=== PATIENT | male | born 1945 | race Caucasian/White ===

== ENCOUNTER 2021-06-11 04:12 | Inpatient (IN) | payer BC, OTHER ==
--- NOTE | 2021-06-11 04:51 | P.HP ---
Certification for Inpatient Patient admitted to: Inpatient With expected LOS: >2 Midnights Patient will require the following post-hospital care: None Practitioner: I am a practitioner with admitting privileges, knowledge of patient current condition, hospital course, and medical plan of care. Services: Services provided to patient in accordance with Admission requirements found in Title 42 Section 412.3 of the Code of Federal Regulations <John Baca - Last Filed: 06/11/21 05:26> Patient History Date of Service: 06/11/21 Primary Care Provider: Dr. Saldaña Reason for admission: COVID-19 pneumonia History of Present Illness: 75-year-old male with history of "prediabetes", hypertension, hypothyroidism presents the emergency department for syncope and dyspnea. Patient reports that he tested positive for Covid on 05/30/2021 and has been feeling short of breath since then, patient has a pulse oximeter at home and reports for the last 24 hours has been running around 88 to 89%. Patient reports that he got up to go to the bathroom this evening and had a syncopal episode, denies any focal injury currently alert and oriented x4. Room air saturations around 87% although satting around 9495% on 4 L per nasal cannula at this time. Patient was evaluated in the emergency department and recommendation from ED provider was for admission for COVID-19 pneumonia. - Past Medical/Surgical History -: Prediabetes -: Hypertension -: Hypothyroidism -: Back surgery Psychosocial/ Personal History: Patient is retired and lives at home with his [facility] - Family History Family History: Reviewed- Non-Contributory - Social History Smoking Status: Never smoker Alcohol use: No CD- Drugs: No Caffeine use: Yes Place of Residence: Home <John Baca - Last Filed: 06/11/21 05:26> Date of Service: 06/11/21 <Mitch Montana - Last Filed: 06/11/21 16:10> Review of Systems 10-point ROS is otherwise unremarkable General: Chills, Weakness, Malaise Respiratory: Cough, Dry, Shortness of Breath, SOB with Excertion <John Baca - Last Filed: 06/11/21 05:26> Physical Examination - Physical Exam General: Alert, In no apparent distress, Oriented x3 HEENT: Atraumatic, PERRLA, Mucous membr. moist/pink, EOMI, Sclerae nonicteric Neck: Supple, 2+ carotid pulse no bruit, No LAD, Without JVD or thyroid abnormality Respiratory: Normal air movement, Diminished, Other (Mild tachypnea) Cardiovascular: Regular rate/rhythm, Normal S1 S2 Gastrointestinal: Normal bowel sounds, No tenderness Musculoskeletal: No tenderness Integumentary: No rashes Neurological: Normal gait, Normal speech, Normal strength at 5/5 x4 extr, Normal tone, Normal affect Lymphatics: No axilla or inguinal lymphadenopathy <John Baca - Last Filed: 06/11/21 05:26> - Studies Laboratory Data (last 24 hrs) 06/11/21 04:31: PT 12.5, INR 1.09, APTT 33.1 06/11/21 04:31: WBC 4.30, Hgb 14.0, Hct 41.7, Plt Count 130 L 06/11/21 04:31: Sodium 130 L, Potassium 3.8, BUN 31 H, Creatinine 1.90 H, Glucose 143 H, Magnesium 1.6 L, Total Bilirubin 0.7, AST 33, ALT 25, Alkaline Phosphatase 40 L <Mitch Montana - Last Filed: 06/11/21 16:10> Assessment and Plan - Plan Assessment: Acute hypoxic respiratory failure secondary to COVID-19 pneumoniaunvaccinated enal insufficiency Hypomagnesemia Prediabetes Hypertension Hypothyroidism Plan: Acute hypoxic respiratory failure secondary to COVID-19 pneumoniaunvaccinated: Supplemental oxygen as needed, IV steroids. Pulmonology consulted Daily room air saturations, room air saturations for home oxygen, if patient continues to have low oxygen requirements baby possibly discharge as early as tomorrow on home oxygen. Trend CRP/ferritin/D-dimer levels. Appreciate further input from pulmonology. Renal insufficiency: Patient appears dry, decreased appetite will bolus 1 L now and continue gentle hydration throughout the day. Repeat labs tomorrow. Consult nephrology for worsening. Renal ultrasound. Hypomagnesemia: Protocol in place. Prediabetes: Patient takes Metformin at home for diabetes was told he is prediabetic, A1c ordered continue with AC just Accu-Cheks and mild sliding scale insulin as patient will be on IV steroids, possible increase in blood sugars. Hypertension: Obtain and continue medications as appropriate adjust as necessary Hypothyroidism: Obtain and continue medication, thyroid panel with morning labs tomorrow. DVT PPX: Lovenox Code status: Full Discharge Plan: Home Plan to discharge in: 48 Hours - Advance Directives Does patient have a Living Will: No Does patient have a Durable POA for Healthcare: No - Code Status/Comfort Care Code Status Assessed: Yes (Full code) Critical Care: No Time Spent Managing Pts Care (In Minutes): 55 <John Baca - Last Filed: 06/11/21 05:26> - Plan Patient seen and examined on rounds this morning Reports minimal improvement since recent admission Continues to require oxygen supplementation Denies nausea/vomiting/diarrhea, no chest pain Continue medications as appropriate Anticipate DC home once oxygen requirement less than 4 L showing improvement. Possibly in the next 1-2 days <Mitch Montana - Last Filed: 06/11/21 16:10>
[2021-06-11 04:55] LABS: Absolute Lymphocytes (CBC) 0.7 K/uL (0.7-4.9); Basophils % 0.3 % (0-1.3); Hematocrit 41.7 % (39.6-49.0); Lymphocytes % 16.9 % (15.3-44.8); MPV 9.3 fL (7.6-11.3); RBC Red Blood Cell Count 4.33 M/uL (4.33-5.43)
[2021-06-11 05:01] LABS: Protime INR 1.09
[2021-06-11 05:13] LABS: ALT/SGPT 25 U/L (12-78); AST/SGOT 33 U/L (15-37); Albumin 3.6 g/dL (3.4-5.0); Alkaline Phosphatase 40 U/L (45-117); BUN Blood Urea Nitrogen 31 mg/dL (7-18); Bicarbonate 25 mmol/L (21-32); Bilirubin Direct 0.2 mg/dL (0-0.2); Bilirubin Total 0.7 mg/dL (0.2-1.0); Ferritin 1072.3 ng/mL (26-388); Glucose Level 143 mg/dL (74-106); Magnesium 1.6 mg/dL (1.8-2.4); NT PRO-BNP 68 pg/mL (<450); Potassium 3.8 mmol/L (3.5-5.1); Protein, Total 8.7 g/dL (6.4-8.2); Sodium Level 130 mmol/L (136-145); Troponin (Emerg Dept Use Only) < 0.02 ng/mL (0.0-0.045)
--- NOTE | 2021-06-11 05:25 | ER ---
Nurse's Notes [facility] Name: Italo Oliver Age: 75 yrs Sex: Male : 1945 Arrival Date: 06/11/2021 Time: 04:14 Bed 16 Private MD: Diagnosis: Pneumonia due to SARS-associated coronavirus;Hypoxemia;Dehydration;Syncope Presentation: 06/11 04:17 Chief complaint: Chief complaint: Patient states: Syncope around 0300 this AM. Pt has mk had covid 13 days, pt states his SpO2 has been around 88-89 the past few days, EMS found at scene with SpO2 of 87% increased to 95% on 4L NC. 04:24 Coronavirus screen: Vaccine status: Patient reports receiving the 2nd dose of the covid mk vaccine. Ebola Screen: Patient negative for fever greater than or equal to 101.5 degrees Fahrenheit, and additional compatible Ebola Virus Disease symptoms. Initial Sepsis Screen: Does the patient meet any 2 criteria? RR > 20 per min. Mean Arterial Pressure (MAP) < 65. Does the patient have a suspected source of infection? Yes: Productive cough/pneumonia. Risk Assessment: Do you want to hurt yourself or someone else? Patient reports no desire to harm self or others. Onset of symptoms was June 11, 2021. 04:24 Method Of Arrival: EMS 04:24 Acuity: BEAU 2 mk Historical: - Allergies: 08:14 Sulfa (Sulfonamide Antibiotics); tw2 - Home Meds: 08:14 losartan-hydrochlorothiazide 100-25 mg oral tab 1 tab once daily [Active]; metformin tw2 500 mg Oral tr24 1 tab once daily [Active]; levothyroxine 88 mcg cap 1 cap once daily [Active]; - PMHx: 08:14 Diabetes mellitus; Hypertensive disorder; Hypothyroidism; tw2 - Family history:: not pertinent. - Hospitalizations: : No recent hospitalization is reported. Assessment: 04:50 General: Appears distressed. General: Behavior is calm, cooperative. Pain: Denies pain. mk Neuro: Level of Consciousness is awake, alert, obeys commands, Oriented to person, place, time, situation, [employer] Inspector are equal bilaterally Moves all extremities. Gait is steady, Speech is normal, Facial symmetry appears normal, Pupils are PERRLA. Cardiovascular: Heart tones S1 S2 present Capillary refill < 3 seconds Patient's skin is warm and dry. Pulses are 2+ in right radial artery, right dorsalis pedis artery, left radial artery and left dorsalis pedis artery. Respiratory: Airway is patent Trachea midline Respiratory effort is even, unlabored, Respiratory pattern is symmetrical, tachypnea Breath sounds are diminished. GI: Abdomen is flat. : No signs and/or symptoms were reported regarding the genitourinary system. Derm: No signs and/or symptoms reported regarding the dermatologic system. Derm: Skin is intact, is healthy with good turgor. Musculoskeletal: Capillary refill < 3 seconds, fingers. toes. Range of motion: intact in all extremities. 05:50 Reassessment: Patient appears in no apparent distress at this time. Patient and/or family updated on plan of care and expected duration. Pain level reassessed. Patient is alert, oriented x 3, equal unlabored respirations, skin warm/dry/pink. 08:39 Reassessment: Patient appears in no apparent distress at this time. Patient and/or tw2 family updated on plan of care and expected duration. Pain level reassessed. Patient is alert, oriented x 3, equal unlabored respirations, skin warm/dry/pink. Vital Signs: 04:24 BP 106 / 46; Pulse 74; Resp 24; Temp 98.1; Pulse Ox 95% on 4 lpm NC; mk 05:15 BP 109 / 64; Pulse 77; Resp 16; Pulse Ox 99% on 4 lpm NC; mk 07:23 BP 124 / 58; Pulse 77; Resp 23; Pulse Ox 98% on 4 lpm NC; mk 08:26 BP 111 / 61; Pulse 79; Resp 22; Temp 98.9(O); Pulse Ox 95% on 4 lpm NC; tw2 Vitals: 07:16 Cardiac Rhythm Assessment. Nini Coma Score: 05:15 Eye Response: spontaneous(4). Verbal Response: oriented(5). Motor Response: obeys commands(6). Total: 15. 07:23 Eye Response: spontaneous(4). Verbal Response: oriented(5). Motor Response: obeys commands(6). Total: 15. ED Course: 04:14 Patient arrived in ED. lp1 04:16 Janine Mckeon RN is Primary Nurse. 04:21 Viraj Montana MD is Attending Physician. rn 04:27 Triage completed. mk 04:30 XRAY CXR (1 view) In Process Unspecified. EDMS 04:32 Inserted saline lock: 20 gauge in right forearm, using aseptic technique. mk 04:32 Inserted saline lock: 20 gauge in left antecubital area, using aseptic technique. mk 04:53 BMP Sent. mk 04:53 Blood Culture Adult (2) Sent. mk 04:53 CBC with Diff Sent. mk 04:53 D-Dimer Sent. mk 04:53 Hepatic Function Sent. mk 04:53 Magnesium Sent. mk 04:53 NT PRO-BNP Sent. mk 04:53 PT-INR Sent. mk 04:53 Ptt, Activated Sent. mk 04:53 Troponin (emerg Dept Use Only) Sent. mk 04:53 CRP Sent. mk 04:53 Ferritin Sent. mk 05:04 Notified ED physician of a critical lab result(s). D-Dimer 723. lp1 05:23 Mitch Montana MD is Hospitalizing Provider. rn 07:20 Report received from MELYSSA Mehta. tw2 07:41 Primary Nurse role handed off by Janine Mckeon RN tw2 07:41 Renee Burgos RN is Primary Nurse. tw2 Administered Medications: 05:53 Drug: SOLU-Medrol (methylPrednisoLONE) 125 mg Route: IVP; Site: left antecubital; mk 05:53 Drug: NS 0.9% 1000 ml Route: IV; Rate: 1000 ml; Site: right forearm; mk 05:53 Drug: Magnesium Sulfate 1 grams Route: IVPB; Infused Over: 1 hrs; Site: right forearm; mk Outcome: 05:24 Decision to Hospitalize by Provider. rn 08:38 Admitted to Med/surg via wheelchair, room 414, with oxygen, Report called to tw2 MELYSSA Mehta 08:38 Condition: stable 08:38 Instructed on the need for admit. 08:47 Patient left the ED. tw2 Signatures: Dispatcher [employer] EDMS Viraj Montana MD MD rn Pena, Laura RN RN lp1 Renee Burgos RN RN tw2 Janine Mckeon RN RN mk Corrections: (The following items were deleted from the chart) 04:27 04:17 Chief complaint: mk mk 07:24 04:32 Inserted saline lock: 20 gauge in right antecubital area, using aseptic mk technique. mk 07:25 04:50 Respiratory: Airway is patent Trachea midline Respiratory effort is even, mk unlabored, Respiratory pattern is regular, symmetrical, mk 08:27 08:26 BP 111 / 61; Pulse 79bpm; Resp 22bpm; Pulse Ox 95% 4 lpm Nasal Cannula; tw2 tw2
--- NOTE | 2021-06-11 05:25 | EDPHYS ---
Physician Documentation [facility] Name: Italo Oliver Age: 75 yrs Sex: Male : 1945 Arrival Date: 06/11/2021 Time: 04:14 Bed 16 Private MD: ED Physician Viraj Montana HPI: 06/11 04:35 This 75 yrs old Male presents to ER via EMS with complaints of Syncope. rn 04:35 The patient has experienced near-syncope. Onset: The symptoms/episode began/occurred rn just prior to arrival. Duration: This was a single episode. Associated injury: The patient did not suffer any apparent associated injury. Current symptoms: Currently, the patient is not experiencing any symptoms. The patient has not experienced similar symptoms in the past. The patient has not recently seen a physician. Patient reports had syncopal episode as was trying to go to the bathroom today. Denies any focal injury or pain from fall. Reports tested positive for Covid this last Monday with symptoms for about a week. Denies hemoptysis. Denies vomiting or diarrhea. Reports generalized weakness and decreased appetite as well as cough.. Historical: - Allergies: 08:14 Sulfa (Sulfonamide Antibiotics); tw2 - Home Meds: 08:14 losartan-hydrochlorothiazide 100-25 mg oral tab 1 tab once daily [Active]; metformin tw2 500 mg Oral tr24 1 tab once daily [Active]; levothyroxine 88 mcg cap 1 cap once daily [Active]; - PMHx: 08:14 Diabetes mellitus; Hypertensive disorder; Hypothyroidism; tw2 - Family history:: not pertinent. - Hospitalizations: : No recent hospitalization is reported. ROS: 04:35 Constitutional: Negative for fever, chills, and weight loss, Eyes: Negative for injury, rn pain, redness, and discharge, ENT: Negative for injury, pain, and discharge, Neck: Negative for injury, pain, and swelling, Cardiovascular: Negative for chest pain, palpitations, and edema, Respiratory: Positive for cough Abdomen/GI: Negative for abdominal pain, nausea, vomiting, diarrhea, and constipation, Back: Negative for injury and pain, : Negative for injury, bleeding, discharge, and swelling, MS/Extremity: Negative for injury and deformity, Skin: Negative for injury, rash, and discoloration, Neuro: Positive for generalized weakness Exam: 04:35 Constitutional: This is a well developed, well nourished patient who is awake, alert, rn and in no acute distress. Head/Face: Normocephalic, atraumatic. Eyes: Periorbital areas with no swelling, redness, or edema. ENT: Dry MM Neck: Trachea midline Cardiovascular: Regular rate and rhythm. No pulse deficits. Respiratory: Mild tachypnea, no retractions Abdomen/GI: Soft, non-tender Skin: Warm, dry MS/ Extremity: Pulses equal, no cyanosis. Neurovascular intact. Full, normal range of motion. Equal circumference. Neuro: Awake and alert, GCS 15 Vital Signs: 04:24 BP 106 / 46; Pulse 74; Resp 24; Temp 98.1; Pulse Ox 95% on 4 lpm NC; mk 05:15 BP 109 / 64; Pulse 77; Resp 16; Pulse Ox 99% on 4 lpm NC; mk 07:23 BP 124 / 58; Pulse 77; Resp 23; Pulse Ox 98% on 4 lpm NC; mk 08:26 BP 111 / 61; Pulse 79; Resp 22; Temp 98.9(O); Pulse Ox 95% on 4 lpm NC; tw2 Singer Coma Score: 05:15 Eye Response: spontaneous(4). Verbal Response: oriented(5). Motor Response: obeys mk commands(6). Total: 15. 07:23 Eye Response: spontaneous(4). Verbal Response: oriented(5). Motor Response: obeys mk commands(6). Total: 15. MDM: 04:21 Patient medically screened. rn 05:22 Differential Diagnosis: syncope, dehydration, COVID. Data reviewed: vital signs, nurses rn notes, lab test result(s), EKG, radiologic studies, plain films, and as a result, I will admit patient. Data interpreted: Pulse oximetry: on 4L(s) per nasal canula, is 95 %. Interpretation: hypoxia. Plan: O2 by NC applied. Counseling: I had a detailed discussion with the patient and/or guardian regarding: the historical points, exam findings, and any diagnostic results supporting the discharge/admit diagnosis, lab results, radiology results, the need for further work-up and treatment in the hospital. Response to treatment: There is no appreciated change of the patient's symptoms at this time. Admission orders: after a detailed discussion of the patient's condition and case, the admit orders are written by me. Special discussion:. 06/11 04:15 Order name: BMP; Complete Time: 05:22 06/11 04:15 Order name: Blood Culture Adult (2) 06/11 04:15 Order name: CBC with Diff; Complete Time: 04:59 06/11 04:15 Order name: D-Dimer; Complete Time: 05:12 06/11 04:15 Order name: Hepatic Function; Complete Time: 05:22 06/11 04:15 Order name: Magnesium; Complete Time: 05:22 06/11 04:15 Order name: NT PRO-BNP; Complete Time: 05:22 06/11 04:15 Order name: PT-INR; Complete Time: 05:12 06/11 04:15 Order name: Ptt, Activated; Complete Time: 05:12 06/11 04:15 Order name: Troponin (emerg Dept Use Only); Complete Time: 05:22 06/11 04:15 Order name: XRAY CXR (1 view) 06/11 04:15 Order name: CRP; Complete Time: 05:22 06/11 04:15 Order name: Ferritin; Complete Time: 05:22 06/11 04:15 Order name: COVID-19/FLU A+B (Document "Date of Onset" if Symptomatic) 06/11 04:15 Order name: EKG; Complete Time: 04:16 06/11 04:15 Order name: Cardiac monitoring; Complete Time: 04:53 06/11 04:15 Order name: EKG - Nurse/Tech; Complete Time: 04:53 06/11 04:15 Order name: IV Saline Lock; Complete Time: 04:53 06/11 04:15 Order name: Labs collected and sent; Complete Time: 04:53 06/11 04:15 Order name: O2 Per Protocol; Complete Time: 04:53 06/11 04:15 Order name: O2 Sat Monitoring; Complete Time: 04:53 Administered Medications: 05:53 Drug: SOLU-Medrol (methylPrednisoLONE) 125 mg Route: IVP; Site: left antecubital; 05:53 Drug: NS 0.9% 1000 ml Route: IV; Rate: 1000 ml; Site: right forearm; 05:53 Drug: Magnesium Sulfate 1 grams Route: IVPB; Infused Over: 1 hrs; Site: right forearm; Disposition Summary: 06/11/21 05:24 Hospitalization Ordered Hospitalization Status: Inpatient Admission rn Provider: Mitch Montana rn Location: Telemetry/MedSurg (Inpatient) rn Condition: Stable rn Problem: new rn Symptoms: have improved rn Bed/Room Type: Standard rn Room Assignment: 415(06/11/21 07:47) eb Diagnosis - Pneumonia due to SARS-associated coronavirus rn - Hypoxemia rn - Dehydration rn - Syncope rn Forms: - Medication Reconciliation Form rn - SBAR form rn Signatures: Dispatcher [employer] EDMS Viraj Montana MD MD rn Attema, Lee, CHEESE WRAPPER-C CHEESE WRAPPER-Cla1 Renee Burgos RN RN 2 Jennifer Cueto Madeline RN RN bessy Corrections: (The following items were deleted from the chart) 07:47 05:24 rn eb
--- NOTE | 2021-06-11 05:26 | P.HP ---
Patient History Date of Service: 06/11/21 Primary Care Provider: Dr. Saldaña Reason for admission: COVID-19 pneumonia History of Present Illness: 75-year-old male with history of "prediabetes", hypertension, hypothyroidism presents the emergency department for syncope and dyspnea. Patient reports that he tested positive for Covid on 05/30/2021 and has been feeling short of breath since then, patient has a pulse oximeter at home and reports for the last 24 hours has been running around 88 to 89%. Patient reports that he got up to go to the bathroom this evening and had a syncopal episode, denies any focal injury currently alert and oriented x4. Room air saturations around 87% although satting around 9495% on 4 L per nasal cannula at this time. Patient was evaluated in the emergency department and recommendation from ED provider was for admission for COVID-19 pneumonia. - Past Medical/Surgical History -: Prediabetes -: Hypertension -: Hypothyroidism -: Back surgery Psychosocial/ Personal History: Patient is retired and lives at home with his family - Family History Family History: Reviewed- Non-Contributory - Social History Smoking Status: Never smoker Alcohol use: No CD- Drugs: No Caffeine use: Yes Place of Residence: Home Physical Examination - Studies Laboratory Data (last 24 hrs) 06/11/21 04:31: PT 12.5, INR 1.09, APTT 33.1 06/11/21 04:31: WBC 4.30, Hgb 14.0, Hct 41.7, Plt Count 130 L 06/11/21 04:31: Sodium 130 L, Potassium 3.8, BUN 31 H, Creatinine 1.90 H, Glucose 143 H, Magnesium 1.6 L, Total Bilirubin 0.7, AST 33, ALT 25, Alkaline Phosphatase 40 L Assessment and Plan - Plan Assessment: Acute hypoxic respiratory failure secondary to COVID-19 pneumoniaunvaccinated enal insufficiency Hypomagnesemia Prediabetes Hypertension Hypothyroidism Plan: Acute hypoxic respiratory failure secondary to COVID-19 pneumoniaunvaccinated: Supplemental oxygen as needed, IV steroids. Pulmonology consulted Daily room air saturations, room air saturations for home oxygen, if patient continues to have low oxygen requirements baby possibly discharge as early as tomorrow on home oxygen. Trend CRP/ferritin/D-dimer levels. Appreciate further input from pulmonology. Renal insufficiency: Patient appears dry, decreased appetite will bolus 1 L now and continue gentle hydration throughout the day. Repeat labs tomorrow. Consult nephrology for worsening. Renal ultrasound. Hypomagnesemia: Protocol in place. Prediabetes: Patient takes Metformin at home for diabetes was told he is prediabetic, A1c ordered continue with AC just Accu-Cheks and mild sliding scale insulin as patient will be on IV steroids, possible increase in blood sugars. Hypertension: Obtain and continue medications as appropriate adjust as necessary Hypothyroidism: Obtain and continue medication, thyroid panel with morning labs tomorrow. DVT PPX: Lovenox Code status: Full - Advance Directives Does patient have a Living Will: No Does patient have a Durable POA for Healthcare: No Time Spent Managing Pts Care (In Minutes): 55
[2021-06-11] MEDS ORDERED: Magnesium Sulfate 2gm IVPB 2 G/50 ML BAG IV ONE (05:32)
[2021-06-11] MEDS ORDERED: METHYLPREDNISOLONE 125 MG INJ ONE (05:32)
[2021-06-11] MEDS ORDERED: NA CHLORIDE 0.9% 1,000 ML ONE (05:33)
--- NOTE | 2021-06-11 07:11 | RAD REPORT ---
EXAM DESCRIPTION: RAD - Chest Single View - 06/11/2021 4:30 am CLINICAL HISTORY: COUGH COMPARISON: Chest Pa And Lat (2 Views) dated 10/17/2017 FINDINGS: Lines: None. Lungs: Ill-defined bilateral airspace opacities. Pleural: No significant pleural effusions or pneumothorax. Cardiac: The heart size is within normal limits. Bones: No acute fractures. Other: IMPRESSION: Ill-defined bilateral airspace disease could reflect multifocal pneumonia, including Cov id-19.
[2021-06-11 07:51] LABS: SARS-COV-2 RT PCR POSITIVE (NEGATIVE)
[2021-06-11 09:11] VITALS: BMI 27.1
[2021-06-11] MEDS ORDERED: ACETAMINOPHEN 500 MG TAB PO PRN (09:12)
[2021-06-11] MEDS ORDERED: ONDANSETRON 4 MG/2 ML VIAL IV PRN (09:12)
[2021-06-11] MEDS ORDERED: MELATONIN 5 MG TABLET PO PRN (09:12)
[2021-06-11] MEDS: INSULIN -REGULAR HUMAN 50 UNIT/0.5 ML ML SQ SCH ×5 (09:12→19:14)
[2021-06-11] MEDS ORDERED: BENZONATATE 100 MG CAP PO PRN (09:12)
[2021-06-11] MEDS: ENOXAPARIN 40 MG/0.4 ML SQ SCH (09:46)
[2021-06-11] MEDS: NA CHLORIDE 0.9% 1,000 ML IV SCH ×2 (09:46→20:48)
[2021-06-11 10:36] LABS: Urine Appearance CLEAR (Clear); Urine Bilirubin NEGATIVE (Negative); Urine Blood NEGATIVE (Negative); Urine Color YELLOW (Yellow); Urine Glucose NEGATIVE (Negative); Urine Protein NEGATIVE (Negative); Urine Urobilinogen 0.2 mg/dL (0.2-1.0); Urine pH 5.5 (5.0-7.0)
[2021-06-11 10:43] LABS: Urine Microscopic Reflex NO UMIC
--- NOTE | 2021-06-11 14:23 | RAD REPORT ---
EXAM DESCRIPTION: US - Renal Ultrasound-Complete - 06/11/2021 1:44 pm CLINICAL HISTORY: elev. creat. Flank pain COMPARISON: Renal Ultrasound-Complete dated 12/11/2017 FINDINGS: Both kidneys are normal in size, shape and echotexture. The right kidney measures 10.4 x 5.4 x 4.2 cm. No hydronephrosis, focal mass or perinephric fluid. The left kidney measures 10.5 x 5.1 x 3.6 cm. Benign left renal cyst measuring 2.5 cm. No hydronephro sis, focal mass or perinephric fluid. The urinary bladder is incompletely distended without gross abnormality seen. IMPRESSION: Benign left renal cyst, otherwise normal study.
[2021-06-11] MEDS ORDERED: NA CHLORIDE 0.9% 0 ML ONE (17:46)
[2021-06-11] MEDS: METHYLPREDNISOLONE 125 MG INJ IV SCH (19:36)
[2021-06-12 03:25] LABS: Absolute Lymphocytes (CBC) 0.8 K/uL (0.7-4.9); Basophils % 0.1 % (0-1.3); Hematocrit 37.8 % (39.6-49.0); Lymphocytes % 12.4 % (15.3-44.8); RBC Red Blood Cell Count 3.95 M/uL (4.33-5.43)
[2021-06-12 03:48] LABS: Albumin 2.8 g/dL (3.4-5.0); Bilirubin Total 0.4 mg/dL (0.2-1.0); C-Reactive Protein 35.7 mg/L (<3.00); Ferritin 940.9 ng/mL (26-388); Magnesium 1.9 mg/dL (1.8-2.4); Protein, Total 7.2 g/dL (6.4-8.2); Thyroid Stimulating Hormone 0.177 uIU/mL (0.360-3.740)
[2021-06-12] MEDS: INSULIN -REGULAR HUMAN 50 UNIT/0.5 ML ML SQ SCH (07:30)
[2021-06-12] MEDS: ENOXAPARIN 40 MG/0.4 ML SQ SCH (08:04)
[2021-06-12] MEDS: METHYLPREDNISOLONE 125 MG INJ IV SCH (08:09)
[2021-06-12 08:48] VITALS: BP 110/59; TEMP 97.6
--- NOTE | 2021-06-12 09:01 | P.DS ---
Admission Date: 06/11/21 Discharge Date: 06/12/21 Primary Care Provider: Dr. Saldaña Discharge Condition: FAIR Reason for Admission: COVID-19 pneumonia Brief History of Present Illness: Patient admitted with respiratory failure from Covid pneumonia Hospital Course: Patient's clinical course was unremarkable he was admitted treated with steroids and multivitamin supplement at time of discharge patient alert oriented responsive cooperative off oxygen room air sat 94% no new complaints denies any shortness of breath his vital signs are all stable chest clear cardiovascular system heart sounds normal and he is alert oriented responsive cooperative no obvious weakness of his extremities he agreed that he was ready to be discharged I faxed some dexamethasone to his pharmacy chest x-ray shows minimal changes Vital Signs/Physical Exam: Temp Pulse Resp BP Pulse Ox 97.6 F 60 19 110/59 L 94 06/12/21 08:00 06/12/21 08:00 06/12/21 08:00 06/12/21 08:00 06/12/21 08:00 Laboratory Data at Discharge: WBC 6.40 K/uL (4.3-10.9) D 06/12/21 03:11 Hgb 12.7 g/dL (13.6-17.9) L 06/12/21 03:11 Hct 37.8 % (39.6-49.0) L 06/12/21 03:11 Plt Count 121 K/uL (152-406) L 06/12/21 03:11 PT 12.5 SECONDS (9.5-12.5) 06/11/21 04:31 INR 1.09 06/11/21 04:31 APTT 33.1 SECONDS (24.3-36.9) 06/11/21 04:31 Sodium 135 mmol/L (136-145) L 06/12/21 03:11 Potassium 4.0 mmol/L (3.5-5.1) 06/12/21 03:11 BUN 30 mg/dL (7-18) H 06/12/21 03:11 Creatinine 1.33 mg/dL (0.55-1.3) H 06/12/21 03:11 Glucose 196 mg/dL (74-106) H 06/12/21 03:11 Magnesium 1.9 mg/dL (1.8-2.4) 06/12/21 03:11 Total Bilirubin 0.4 mg/dL (0.2-1.0) 06/12/21 03:11 AST 27 U/L (15-37) 06/12/21 03:11 ALT 23 U/L (12-78) 06/12/21 03:11 Alkaline Phosphatase 31 U/L (45-117) L 06/12/21 03:11 Triglycerides 141 mg/dL (<150) 06/12/21 03:11 Cholesterol 156 mg/dL (<200) 06/12/21 03:11 HDL Cholesterol 25 mg/dL (40-60) L 06/12/21 03:11 Cholesterol/HDL Ratio 6.24 06/12/21 03:11 Home Medications: Ascorbic Acid [Vitamin C*] 500 mg PO DAILY 06/11/21 Aspirin 81 mg PO DAILY 06/11/21 Cholecalciferol (Vitamin D3) [Vitamin D3] 1,000 unit PO DAILY 06/11/21 Levothyroxine [Synthroid*] 0.1 mg PO DAILY 06/11/21 Metformin HCl [Glucophage*] 500 mg PO DAILY 06/11/21 Multivitamin 1 tab PO DAILY 06/11/21 Pantoprazole Sodium [Protonix] 40 mg PO DAILY 06/11/21 Pioglitazone [Actos*] 30 mg PO DAILY 06/11/21 Valsartan/Hydrochlorothiazide [Valsartan-Hctz 160-25 mg Tab] 1 tab PO DAILY 06/11/21 Zinc 1 tab PO DAILY 06/11/21 dexAMETHasone [Dexamethasone] 2 mg PO BID #20 tablet 06/12/21 New Medications: dexAMETHasone [Dexamethasone] 2 mg PO BID #20 tablet Followup: NONE,NONE [Primary Care Provider] -
[2021-06-12 09:10] VITALS: O2SAT 93
== END 2021-06-12 11:00 | disposition home or self-care (01) | DRG 177 ==
LOC: ER 04:12 → ERHOLD 05:02 → 4TH 08:27
PROVIDERS: ADMIT Hospitalist; ATTEND Internal Medicine Sleep Medicine
DX: U07.1 COVID-19 (principal); J12.82 Pneumonia due to coronavirus disease 2019; J96.01 Acute respiratory failure with hypoxia; I10 Essential (primary) hypertension; N28.9 Disorder of kidney and ureter, unspecified; E83.42 Hypomagnesemia; E03.9 Hypothyroidism, unspecified; E86.0 Dehydration; R73.03 Prediabetes; Z88.1 Allergy status to other antibiotic agents; Z79.84 Long term (current) use of oral hypoglycemic drugs; Z79.890 Hormone replacement therapy; Z79.899 Other long term (current) drug therapy
CPT/HCPCS: 0240U; 36415; 71045; 76770; 80048; 80053; 80061; 80076; 81003; 82728; 82947; 83036; 83735; 83880; 84439; 84443; 84484; 85025; 85379; 85610; 85730; 86140; 87040; 93005; 99285; J1650; J2930; J3475; J7030

== ENCOUNTER 2021-06-15 09:36 | Inpatient (IN) | payer OTHER ==
[2021-06-15] MEDS ORDERED: NA CHLORIDE 0.9% 500 ML ONE (09:55)
[2021-06-15] MEDS ORDERED: LEVALBUTEROL 1.25 MG/3 ML NEB ONE (09:55)
--- NOTE | 2021-06-15 10:04 | RAD REPORT ---
EXAM DESCRIPTION: RAD - Chest Single View - 06/15/2021 9:58 am CLINICAL HISTORY: Shortness of breath Chest pain. COMPARISON: Chest Single View dated 06/11/2021; Chest Pa And Lat (2 Views) dated 10/17/2017 FINDINGS: Portable technique limits examination quality. Bilateral interstitial lung opacities are again seen, appearing slightly progressive on the left sinc e 06/11/2021. The heart is normal in size. No displaced fractures. IMPRESSION: Mild worsening lung aeration, particularly on the left, since comparative study.
[2021-06-15 10:08] LABS: Absolute Lymphocytes (CBC) 0.8 K/uL (0.7-4.9); Hematocrit 39.6 % (39.6-49.0); Lymphocytes % 7.5 % (15.3-44.8); MPV 8.2 fL (7.6-11.3); RBC Red Blood Cell Count 4.18 M/uL (4.33-5.43)
[2021-06-15 10:09] LABS: Protime INR 1.09
[2021-06-15 10:21] LABS: ALT/SGPT 57 U/L (12-78); AST/SGOT 44 U/L (15-37); Albumin 2.9 g/dL (3.4-5.0); Alkaline Phosphatase 37 U/L (45-117); BUN Blood Urea Nitrogen 28 mg/dL (7-18); Bicarbonate 24 mmol/L (21-32); Bilirubin Direct 0.3 mg/dL (0-0.2); Bilirubin Total 0.9 mg/dL (0.2-1.0); Glucose Level 134 mg/dL (74-106); Magnesium 1.8 mg/dL (1.8-2.4); NT PRO-BNP 579 pg/mL (<450); Potassium 3.6 mmol/L (3.5-5.1); Protein, Total 7.8 g/dL (6.4-8.2); Sodium Level 135 mmol/L (136-145); Troponin (Emerg Dept Use Only) < 0.02 ng/mL (0.0-0.045)
--- NOTE | 2021-06-15 10:58 | ER ---
Nurse's Notes [facility] Name: Italo Oliver Age: 75 yrs Sex: Male : 1945 Arrival Date: 06/15/2021 Time: 09:37 Bed 5 Private MD: Diagnosis: Shortness of breath;SARS-associated coronavirus as the cause of diseases classified elsewhere;Acute and chronic respiratory failure with hypoxia-73% on room air at home prior to arrival Presentation: 06/15 09:37 Chief complaint: EMS states: INCREASED SOB AND GENERAL WEAKNESS SINCE LAST NIGHT. DX bp COVID + ON 06/07. Coronavirus screen: Client reports previous positive COVID test result. Date of collection: June 07, 2021. Ebola Screen: No symptoms or risks identified at this time. Initial Sepsis Screen: Does the patient meet any 2 criteria? RR > 20 per min. HR > 90 bpm. Yes Does the patient have a suspected source of infection? Yes: Productive cough/pneumonia. Risk Assessment: Do you want to hurt yourself or someone else? Patient reports no desire to harm self or others. Onset of symptoms was June 14, 2021. Care prior to arrival: Medication(s) given: Albuterol Neb x 1, Atrovent Neb D50, IV initiated. 20 GA, in the left antecubital area. 09:37 Method Of Arrival: EMS: [facility] bp 09:37 Acuity: BEAU 2 bp Triage Assessment: 10:00 General: Appears distressed, uncomfortable, ill, Behavior is calm, cooperative, bp appropriate for age. Pain: Denies pain. EENT: No deficits noted. Neuro: Reports weakness GENERAL. Cardiovascular: Rhythm is sinus tachycardia. Respiratory: Reports shortness of breath at rest Onset: The symptoms/episode began/occurred yesterday, the patient has moderate shortness of breath. GI: No signs and/or symptoms were reported involving the gastrointestinal system. : No signs and/or symptoms were reported regarding the genitourinary system. Derm: No deficits noted. Musculoskeletal: No deficits noted. Historical: - Allergies: 09:40 Sulfa (Sulfonamide Antibiotics); ll1 - PMHx: 09:40 diabetes mellitus; Hypertensive disorder; Hypothyroidism; ll1 - Immunization history:: Client reports having NOT received the Covid vaccine. - Social history:: Smoking status: Patient denies any tobacco usage or history of. Patient uses. Screenin:00 Abuse screen: Denies threats or abuse. Denies injuries from another. Nutritional bp screening: No deficits noted. Tuberculosis screening: No symptoms or risk factors identified. 22:05 Fall Risk None identified. as6 Assessment: 10:00 General: SEE TRIAGE NOTE. bp 12:00 Reassessment: No changes from previously documented assessment. Patient and/or family bp updated on plan of care and expected duration. Pain level reassessed. Patient is alert, oriented x 3, equal unlabored respirations, skin warm/dry/pink. 14:00 Reassessment: No changes from previously documented assessment. Patient and/or family bp updated on plan of care and expected duration. Pain level reassessed. 16:00 Reassessment: No changes from previously documented assessment. Patient and/or family bp updated on plan of care and expected duration. Pain level reassessed. PT SWITCHED FROM NRB15 TO 10L NC. 18:00 Reassessment: No changes from previously documented assessment. Cardiovascular: Rhythm bp is sinus rhythm. Respiratory: Airway is patent Respiratory effort is even, unlabored, Breath sounds are coarse bilaterally. 20:52 Respiratory: Reports shortness of breath. as6 Vital Signs: 09:37 BP 93 / 57; Pulse 110; Resp 28; Temp 98.2; Pulse Ox 91% on 15% Non-rebreather mask; bp 11:00 BP 117 / 54; Pulse 104; Resp 19; Pulse Ox 92% ; bp 12:00 BP 112 / 60; Pulse 94; Resp 29; Pulse Ox 92% ; bp 13:00 BP 122 / 61; Pulse 91; Resp 20; Pulse Ox 87% ; bp 14:00 BP 129 / 61; Pulse 83; Resp 20; Pulse Ox 93% ; bp 15:00 BP 110 / 66; Pulse 87; Resp 23; Pulse Ox 92% ; bp 16:00 BP 126 / 72; Pulse 85; Resp 18; Pulse Ox 82% ; bp 17:00 BP 122 / 79; Pulse 92; Resp 28; Pulse Ox 92% ; bp 18:00 BP 122 / 71; Pulse 79; Resp 19; Pulse Ox 86% ; bp 20:51 BP 117 / 66; Pulse 73; Resp 29 S; Pulse Ox 90% on 10 lpm NC; as6 ED Course: 09:37 Patient arrived in ED. bp 09:38 Rittger, Neville, MD is Attending Physician. kdr 09:40 Arm band placed on Patient placed in an exam room, on a stretcher. ll1 09:40 Patient has correct armband on for positive identification. Bed in low position. Call [facility] light in reach. Side rails up X2. Warm blanket given. video engineer on. Pulse ox on. NIBP on. 09:40 Inserted saline lock: 20 gauge in left antecubital area, using aseptic technique. 5 09:42 Triage completed. bp 09:50 Cody Damon, RN is Primary Nurse. bp 09:52 Troponin (emerg Dept Use Only) Sent. 5 09:52 PT-INR Sent. 5 09:52 NT PRO-BNP Sent. 5 09:52 Magnesium Sent. 5 09:52 LFT's Sent. 5 09:52 CBC with Diff Sent. 5 09:52 Basic Metabolic Panel Sent. 5 09:53 Maintain EMS IV. Dressing intact. Good blood return noted. Site clean \T\ dry. 5 09:54 Initial lab(s) drawn, by nm, sent to lab. EKG done, by ED staff, reviewed by Neville Valera MD. 09:58 XRAY Chest (1 view) In Process Unspecified. EDMS 10:56 Garrett Morales is Hospitalizing Provider. kdr 22:05 No provider procedures requiring assistance completed. Patient admitted, IV remains in as6 place. Administered Medications: 10:00 Drug: Xopenex (levalbuterol) (3) 1.25 mg Route: Inhalation; bp 10:00 Drug: NS 0.9% 500 ml Route: IV; Rate: bolus; Site: left antecubital; bp 10:01 Not Given (Duplicate Order): SOLU-Medrol (methylPrednisoLONE) 125 mg IVP once bp Outcome: 10:57 Decision to Hospitalize by Provider. kdr 22:05 Admitted to Tele accompanied by tech, via stretcher, room 405, with oxygen, with chart, as6 Report called to Mayela RAGSDALE 22:05 Condition: stable 22:05 Patient left the ED. as6 Signatures: Dispatcher [employer] EDPA Neville Valera MD MD kdr Martinez, Maria Cody Lawrence, RN RN bp Alexi Ojeda RN RN ll1 Angel Morales, RN RN as6
--- NOTE | 2021-06-15 10:58 | EDPHYS ---
Physician Documentation [facility] Name: Italo Oliver Age: 75 yrs Sex: Male : 1945 Arrival Date: 06/15/2021 Time: 09:37 Bed 5 Private MD: ED Physician Neville Valera HPI: 06/15 12:45 This 75 yrs old Male presents to ER via EMS with complaints of Shortness Of Breath. kdr 12:45 The patient has shortness of breath at rest, with light activity. Onset: The kdr symptoms/episode began/occurred last night. Duration: The symptoms are continuous, and are steadily getting worse. The patient's shortness of breath is aggravated by exertion, light activity, is alleviated by nothing. Associated signs and symptoms: Pertinent positives: fever, Pertinent negatives: non-productive cough, productive cough. Severity of symptoms: At their worst the symptoms were mild moderate just prior to arrival, in the emergency department the symptoms have improved. The patient has experienced similar episodes in the past, several times. The patient has been recently seen by a physician: the patient's primary care provider. Patient was diagnosed with Covid on the of this month. Since then he has been slowly but steadily getting worse. Last night he had difficulty sleeping and was generally weak. This morning, he called EMS and when they arrived his oxygen saturation was noted to be about 73% on room air. On nonrebreather he came to the mid 90s percentile range with his saturation. Patient otherwise denies any specific circumstances or issues. Historical: - Allergies: 09:40 Sulfa (Sulfonamide Antibiotics); ll1 - PMHx: 09:40 diabetes mellitus; Hypertensive disorder; Hypothyroidism; ll1 - Immunization history:: Client reports having NOT received the Covid vaccine. - Social history:: Smoking status: Patient denies any tobacco usage or history of. Patient uses. ROS: 12:45 Constitutional: Negative for fever, chills, and weight loss, Eyes: Negative for injury, kdr pain, redness, and discharge, ENT: Negative for injury, pain, and discharge, Neck: Negative for injury, pain, and swelling, Abdomen/GI: Negative for abdominal pain, nausea, vomiting, diarrhea, and constipation, Back: Negative for injury and pain, : Negative for injury, bleeding, discharge, and swelling, MS/Extremity: Negative for injury and deformity, Skin: Negative for injury, rash, and discoloration, Neuro: Negative for headache, weakness, numbness, tingling, and seizure activity. 12:45 Cardiovascular: Positive for paroxysmal nocturnal dyspnea, Negative for chest pain, edema, orthopnea, palpitations, paroxysmal nocturnal dyspnea. 12:45 Respiratory: Positive for cough, dyspnea on exertion, shortness of breath, wheezing. Exam: 10:20 ECG was reviewed by the Attending Physician. kdr 12:45 Constitutional: This is a well developed, well nourished patient who is awake, alert, kdr and in no acute distress. Head/Face: Normocephalic, atraumatic. Eyes: Pupils equal round and reactive to light, extra-ocular motions intact. Lids and lashes normal. Conjunctiva and sclera are non-icteric and not injected. Cornea within normal limits. Periorbital areas with no swelling, redness, or edema. Neck: Trachea midline, no thyromegaly or masses palpated, and no cervical lymphadenopathy. Supple, full range of motion without nuchal rigidity, or vertebral point tenderness. No Meningismus. Chest/axilla: Normal chest wall appearance and motion. Nontender with no deformity. No lesions are appreciated. Abdomen/GI: Soft, non-tender, with normal bowel sounds. No distension or tympany. No guarding or rebound. No evidence of tenderness throughout. Back: No spinal tenderness. No costovertebral tenderness. Full range of motion. Skin: Warm, dry with normal turgor. Normal color with no rashes, no lesions, and no evidence of cellulitis. MS/ Extremity: Pulses equal, no cyanosis. Neurovascular intact. Full, normal range of motion. Neuro: Awake and alert, GCS 15, oriented to person, place, time, and situation. Cranial nerves II-XII grossly intact. Motor strength 5/5 in all extremities. Sensory grossly intact. Cerebellar exam normal. Normal gait. Psych: Awake, alert, with orientation to person, place and time. Behavior, mood, and affect are within normal limits. 12:45 Cardiovascular: Rate: tachycardic, Rhythm: regular. 12:45 Respiratory: mild respiratory distress is noted, Respirations: normal, Breath sounds: rales, that are moderate, are scattered, are located in both bases, are heard diffusely. Vital Signs: 09:37 BP 93 / 57; Pulse 110; Resp 28; Temp 98.2; Pulse Ox 91% on 15% Non-rebreather mask; bp 11:00 BP 117 / 54; Pulse 104; Resp 19; Pulse Ox 92% ; bp 12:00 BP 112 / 60; Pulse 94; Resp 29; Pulse Ox 92% ; bp 13:00 BP 122 / 61; Pulse 91; Resp 20; Pulse Ox 87% ; bp 14:00 BP 129 / 61; Pulse 83; Resp 20; Pulse Ox 93% ; bp 15:00 BP 110 / 66; Pulse 87; Resp 23; Pulse Ox 92% ; bp 16:00 BP 126 / 72; Pulse 85; Resp 18; Pulse Ox 82% ; bp 17:00 BP 122 / 79; Pulse 92; Resp 28; Pulse Ox 92% ; bp 18:00 BP 122 / 71; Pulse 79; Resp 19; Pulse Ox 86% ; bp 20:51 BP 117 / 66; Pulse 73; Resp 29 S; Pulse Ox 90% on 10 lpm NC; as6 MDM: 10:57 Patient medically screened. kdr 12:45 Data reviewed: vital signs, nurses notes, lab test result(s), EKG, radiologic studies. kdr Counseling: I had a detailed discussion with the patient and/or guardian regarding: the historical points, exam findings, and any diagnostic results supporting the discharge/admit diagnosis, lab results, radiology results, the need for further work-up and treatment in the hospital. 06/15 09:38 Order name: Basic Metabolic Panel kdr 06/15 09:38 Order name: CBC with Diff kdr 06/15 09:38 Order name: LFT's kdr 06/15 09:38 Order name: Magnesium kdr 06/15 09:38 Order name: NT PRO-BNP kdr 06/15 09:38 Order name: PT-INR kdr 06/15 09:38 Order name: Troponin (emerg Dept Use Only) kdr 06/15 09:38 Order name: XRAY Chest (1 view) kdr 06/15 09:38 Order name: EKG; Complete Time: 09:39 kdr 06/15 09:38 Order name: Cardiac monitoring; Complete Time: 09:42 kdr 06/15 09:38 Order name: EKG - Nurse/Tech; Complete Time: 09:52 kdr 06/15 09:38 Order name: IV Saline Lock; Complete Time: 09:42 kdr 06/15 09:38 Order name: Labs collected and sent; Complete Time: 09:52 kdr 06/15 09:38 Order name: O2 Per Protocol; Complete Time: kdr 06/15 09:38 Order name: O2 Sat Monitoring; Complete Time: : kdr EC:20 Rate is 105 beats/min. Rhythm is regular, Sinus tachycardia with No ectopy. QRS Jackson is kdr Normal. AL interval is normal. QRS interval is normal. Clinical impression: NSR w/ Non-specific ST/T Changes and Sinus tachycardia. Administered Medications: 10:00 Drug: Xopenex (levalbuterol) (3) 1.25 mg Route: Inhalation; bp 10:00 Drug: NS 0.9% 500 ml Route: IV; Rate: bolus; Site: left antecubital; bp 10:01 Not Given (Duplicate Order): SOLU-Medrol (methylPrednisoLONE) 125 mg IVP once bp Disposition Summary: 06/15/21 10:57 Hospitalization Ordered Hospitalization Status: Inpatient Admission kdr Provider: Garrett Morales kdr Location: Telemetry/MedSurg (Inpatient) kdr Condition: Fair kdr Problem: an acute exacerbation kdr Symptoms: have improved kdr Bed/Room Type: Standard kdr Room Assignment: 405(06/15/21 19:45) cs9 Diagnosis - Shortness of breath kdr - SARS-associated coronavirus as the cause of diseases classified elsewhere kdr - Acute and chronic respiratory failure with hypoxia - 73% on room air at home prior kdr to arrival Forms: - Medication Reconciliation Form kdr - SBAR form kdr Signatures: Dispatcher [employer] EDNeville Culver MD MD kdr Cody Damon RN RN bp Alexi Ojeda RN RN 1 Ese Flores cs9 Corrections: (The following items were deleted from the chart) 19:45 10:57 kdr cs9
--- NOTE | 2021-06-15 12:09 | P.HP ---
Certification for Inpatient Patient admitted to: Inpatient With expected LOS: >2 Midnights Practitioner: I am a practitioner with admitting privileges, knowledge of patient current condition, hospital course, and medical plan of care. Services: Services provided to patient in accordance with Admission requirements found in Title 42 Section 412.3 of the Code of Federal Regulations Patient History Date of Service: 06/15/21 Reason for admission: Shortness of breath History of Present Illness: 75-year-old gentleman with a history of diabetes and hypertension recently hospitalized 4 days ago for pneumonia due to Covid and discharged the following day return to the ED with progressive worsening of shortness of breath and cough. Patient noted to be hypoxic on room air and was requiring 100% nonrebreather to maintain oxygen saturation above 90%. He denies any chest pain. He has a nonproductive cough. Patient admitted for further management of Covid pneumonia with hypoxia. Allergies Sulfa (Sulfonamide Antibiotics) Allergy (Verified 06/11/21 09:12) Hives/Rash Home Medications: Ascorbic Acid [Vitamin C*] 500 mg PO DAILY 06/11/21 Aspirin 81 mg PO DAILY 06/11/21 Cholecalciferol (Vitamin D3) [Vitamin D3] 1,000 unit PO DAILY 06/11/21 Levothyroxine [Synthroid*] 0.1 mg PO DAILY 06/11/21 Metformin HCl [Glucophage*] 500 mg PO DAILY 06/11/21 Multivitamin 1 tab PO DAILY 06/11/21 Pantoprazole Sodium [Protonix] 40 mg PO DAILY 06/11/21 Pioglitazone [Actos*] 30 mg PO DAILY 06/11/21 Valsartan/Hydrochlorothiazide [Valsartan-Hctz 160-25 mg Tab] 1 tab PO DAILY 06/11/21 Zinc 1 tab PO DAILY 06/11/21 dexAMETHasone [Dexamethasone] 2 mg PO BID #20 tablet 06/13/21 - Past Medical/Surgical History Diabetic: No -: Prediabetes -: Hypertension -: Hypothyroidism -: Cespedes's Esophagus -: Back surgery Psychosocial/ Personal History: Patient is retired and lives at home with his family - Family History Family History: Reviewed- Non-Contributory - Social History Alcohol use: No CD- Drugs: No Caffeine use: Yes Review of Systems Other: Patient denies any abdominal pain, no nausea or vomiting, no diarrhea. Except as documented, all other systems reviewed and negative. Physical Examination - Physical Exam General: Alert, In no apparent distress, Oriented x3 HEENT: Normocephalic, PERRLA, Mucous membr. moist/pink, Sclerae nonicteric Neck: Supple, JVD not distended Respiratory: Normal air movement, Crackles/rales (Bilateral) Cardiovascular: No edema, Regular rate/rhythm, No murmurs Gastrointestinal: Normal bowel sounds, Soft and benign, Non-distended, No tenderness Musculoskeletal: No swelling, No tenderness Integumentary: No rashes, No erythema, No cyanosis Neurological: Normal speech, Normal strength at 5/5 x4 extr Lymphatics: No axilla or inguinal lymphadenopathy - Studies Laboratory Data (last 24 hrs) 06/15/21 09:50: PT 12.6 H, INR 1.09 06/15/21 09:50: WBC 11.10 H D, Hgb 13.6, Hct 39.6, Plt Count 259 D 06/15/21 09:50: Sodium 135 L, Potassium 3.6, BUN 28 H, Creatinine 1.60 H, Glucose 134 H, Magnesium 1.8, Total Bilirubin 0.9, AST 44 H, ALT 57, Alkaline Phosphatase 37 L Assessment and Plan - Problems (Diagnosis) (1) Pneumonia due to COVID-19 virus Current Visit: Yes Status: Acute (2) Acute respiratory failure with hypoxia Current Visit: Yes Status: Acute (3) Chronic kidney disease, stage 3 Current Visit: Yes Status: Acute - Plan Admit to the medical floor. Covid protocol initiated with IV steroid, vitamin and zinc supplementation. Consult to pulmonary Monitor inflammatory markers. Patient is a candidate for Baricitinib therapy pending CRP result. Titrate oxygen. HFNC and BiPAP as needed. Consult to respiratory. Insulin sliding scale for glucose management. Watch for steroid-induced hyperglycemia. Monitor renal function. - Advance Directives Does patient have a Living Will: No Does patient have a Durable POA for Healthcare: No
[2021-06-15] MEDS ORDERED: ONDANSETRON 4 MG/2 ML VIAL IV PRN (20:51)
[2021-06-15] MEDS: INSULIN -REGULAR HUMAN 50 UNIT/0.5 ML ML SQ SCH ×2 (21:00→22:41)
[2021-06-15] MEDS: ASCORBIC ACID 500 MG TABLET PO SCH (22:40)
[2021-06-15 23:56] LABS: Urine Appearance CLEAR (Clear); Urine Bilirubin NEGATIVE (Negative); Urine Blood TRACE (Negative); Urine Color YELLOW (Yellow); Urine Glucose 3+ (Negative); Urine Protein 1+ (Negative); Urine Specific Gravity 1.025 (1.005-1.030)
[2021-06-16 00:03] LABS: Urine Microscopic Reflex ORDER UMIC
[2021-06-16 00:15] LABS: Urine Bacteria <20 /HPF (NONE SEEN); Urine RBC <5 /HPF (NONE SEEN)
[2021-06-16 03:38] LABS: Hematocrit 36.8 % (39.6-49.0); RBC Red Blood Cell Count 3.84 M/uL (4.33-5.43)
[2021-06-16 03:39] LABS: Absolute Lymphocytes (CBC) 0.7 K/uL (0.7-4.9); Lymphocytes % 5.9 % (15.3-44.8); MPV 8.2 fL (7.6-11.3)
[2021-06-16 03:48] LABS: Protime INR 1.06
[2021-06-16 04:01] LABS: Albumin 2.4 g/dL (3.4-5.0); Bilirubin Total 0.6 mg/dL (0.2-1.0); Ferritin 1481.7 ng/mL (26-388); Magnesium 2.1 mg/dL (1.8-2.4); Phosphorus 2.2 mg/dL (2.5-4.9); Protein, Total 7.2 g/dL (6.4-8.2); Thyroid Stimulating Hormone 0.659 uIU/mL (0.360-3.740)
[2021-06-16 04:20] LABS: Blood Morphology Comment NOT SEEN (NOT SEEN); Platelet Estimate ADEQ; White Blood Cell Scan OK (OK)
[2021-06-16] MEDS: POTASS/SODIUM PHOSPHATE 1 PKT POWD.PACK PO SCH ×3 (06:41→11:26)
[2021-06-16] MEDS ORDERED: PNEUMOCOCCAL VACCINE 0.5 ML IMVAC ONE (08:00)
[2021-06-16] MEDS ORDERED: INFLUENZA VACCINE (for 6+ mo) 0.5 ML DOSE IMVAC ONE (08:00)
[2021-06-16] MEDS ORDERED: dexAMETHasone 10 MG/ML VIAL IV SCH (09:00)
[2021-06-16] MEDS ORDERED: ENOXAPARIN 40 MG/0.4 ML SQ SCH (09:00)
--- NOTE | 2021-06-16 09:15 | RAD REPORT ---
EXAM DESCRIPTION: CT - Chest For Pe Angio - 06/16/2021 8:42 am CLINICAL HISTORY: covid positive, shortness of breath COMPARISON: Chest Single View dated 06/15/2021 TECHNIQUE: Dynamically enhanced 3 mm thick images of the chest were obtained during administration o f approximately 150mL Isovue 370 IV contrast. Coronal and oblique MIP reconstruction images were gene rated and reviewed. Exam utilizes a protocol to evaluate the pulmonary arterial tree. All CT scans are performed using dose optimization technique as appropriate and may include automated exposure control or mA/KV adjustment according to patient size. FINDINGS: No pulmonary emboli are identified. The aorta as imaged shows no acute or suspicious finding. No pericardial thickening or effusion. Diffuse ground-glass opacities are present throughout the mid and lower lung aviles generally sparing each apex. This alveolar opacification pattern is well described in COVID-19 pneumonia. No suspiciou s lung parenchymal mass lesion. No pleural effusion or pleural thickening. No mediastinal or hilar suspicious masses. No chest wall masses or abnormal axillary lymphadenopathy. IMPRESSION: No pulmonary emboli identified. Moderate severity COVID-19 pneumonia pattern throughout the mid and lower lung aviles.
[2021-06-16] MEDS: INSULIN -REGULAR HUMAN 50 UNIT/0.5 ML ML SQ SCH ×4 (09:49→21:09)
[2021-06-16] MEDS: ASCORBIC ACID 500 MG TABLET PO SCH ×2 (11:26→21:08)
[2021-06-16] MEDS: ZINC SULFATE 220 MG CAP PO SCH (11:26)
[2021-06-16] MEDS: VITAMIN D 5,000 UNIT CAP PO SCH (11:27)
[2021-06-16] MEDS: APIXABAN 5 MG TABLET PO SCH ×2 (11:27→21:09)
[2021-06-16] MEDS: METHYLPREDNISOLONE 125 MG INJ IV SCH ×2 (11:28→17:08)
[2021-06-16] MEDS: BARICITINIB 2 MG TABLET PO SCH (11:28)
--- NOTE | 2021-06-16 12:39 | P.CNS ---
Date of Consult: 06/16/21 Reason for Consult: Respiratory failure from coronavirus Chief Complaint: Respiratory failure History of Present Illness: Patient is 75 years of age was recently discharged was admitted with coronavirus became worse and it appeared with worsening x-ray and hypoxemia he is currently on high flow feeling well otherwise patient has not been vaccinated alert responsive cooperative Allergies Sulfa (Sulfonamide Antibiotics) Allergy (Verified 06/11/21 09:12) Hives/Rash Home Medications: Ascorbic Acid [Vitamin C*] 500 mg PO DAILY 06/11/21 Aspirin 81 mg PO DAILY 06/11/21 Cholecalciferol (Vitamin D3) [Vitamin D3] 1,000 unit PO DAILY 06/11/21 Levothyroxine [Synthroid*] 0.1 mg PO DAILY 06/11/21 Metformin HCl [Glucophage*] 500 mg PO DAILY 06/11/21 Multivitamin 1 tab PO DAILY 06/11/21 Pantoprazole Sodium [Protonix] 40 mg PO DAILY 06/11/21 Pioglitazone [Actos*] 30 mg PO DAILY 06/11/21 Valsartan/Hydrochlorothiazide [Valsartan-Hctz 160-25 mg Tab] 1 tab PO DAILY 06/11/21 Zinc 1 tab PO DAILY 06/11/21 dexAMETHasone [Dexamethasone] 2 mg PO BID #20 tablet 06/13/21 - Past Medical/Surgical History Diabetic: No -: Prediabetes -: Hypertension -: Hypothyroidism -: Cespedes's Esophagus -: Back surgery Psychosocial/ Personal History: Patient is retired and lives at home with his family - Social History Alcohol use: No CD- Drugs: No Caffeine use: Yes Place of Residence: Home Review of Systems General: Weakness Respiratory: Cough, Shortness of Breath Physical Examination Temp Pulse Resp BP Pulse Ox 98.7 F 74 28 H 112/49 L 96 06/16/21 12:00 06/16/21 12:00 06/16/21 12:00 06/16/21 12:00 06/16/21 12:00 General: Alert, Oriented x3, Moderate distress Respiratory: Clear to auscultation bilaterally, Diminished - Problems (1) Pneumonia due to COVID-19 virus Current Visit: Yes Status: Acute Plan: Patient is 75 years of age and readmitted again with respiratory failure from coronavirus he has not been vaccinated I have increased the dose of his Solu- Medrol patient started on Barcitinib chest x-ray CT scan shows diffuse tomas undglass changes labs reviewed renal function improving
--- NOTE | 2021-06-16 13:59 | P.PN ---
Subjective Date of Service: 06/16/21 Chief Complaint: Respiratory failure Patient currently on high flow oxygen and 100% FiO2. No major changes from yesterday. Physical Examination - Vital Signs Temperature: 98.7 F Blood Pressure: 112/49 Pulse: 74 Respirations: 28 Pulse Ox (%): 96 Assessment And Plan - Current Problems (Diagnosis) (1) Pneumonia due to COVID-19 virus Current Visit: Yes Status: Acute (2) Acute respiratory failure with hypoxia Current Visit: Yes Status: Acute (3) Chronic kidney disease, stage 3 Current Visit: Yes Status: Acute - Plan Physical exam General: Alert, In no apparent distress, Oriented x3 HEENT: Sclerae nonicteric Neck: Supple, JVD not distended Respiratory: Normal air movement, Crackles/rales (Bilateral) Cardiovascular: No edema, Regular rate/rhythm, No murmurs Gastrointestinal: Normal bowel sounds, Soft and benign, Non-distended, No tenderness Musculoskeletal: No swelling, No tenderness Integumentary: No rashes, No erythema, No cyanosis Neurological: Normal speech, Normal strength at 5/5 x4 extr Plan Continue IV steroid, vitamin and zinc supplementation. Patient seen by pulmonary. Baricitinib started. Monitor inflammatory markers. Titrate oxygen. HFNC and BiPAP as needed. Insulin sliding scale for glucose management. Watch for steroid-induced hyperglycemia.
[2021-06-17] MEDS: METHYLPREDNISOLONE 125 MG INJ IV SCH ×3 (00:12→16:11)
[2021-06-17 03:59] LABS: Absolute Lymphocytes (CBC) 1.4 K/uL (0.7-4.9); Hematocrit 37.5 % (39.6-49.0); Lymphocytes % 10.5 % (15.3-44.8)
[2021-06-17 04:09] LABS: Albumin 2.2 g/dL (3.4-5.0); Bilirubin Total 0.7 mg/dL (0.2-1.0); Ferritin 1763.5 ng/mL (26-388); Potassium 4.1 mmol/L (3.5-5.1); Protein, Total 6.9 g/dL (6.4-8.2)
[2021-06-17 05:33] LABS: Magnesium 2.2 mg/dL (1.8-2.4); Phosphorus 3.4 mg/dL (2.5-4.9)
[2021-06-17] MEDS: APIXABAN 5 MG TABLET PO SCH ×2 (07:57→20:18)
[2021-06-17] MEDS: BARICITINIB 2 MG TABLET PO SCH (07:57)
[2021-06-17] MEDS: ASCORBIC ACID 500 MG TABLET PO SCH ×2 (07:58→20:18)
[2021-06-17] MEDS: ZINC SULFATE 220 MG CAP PO SCH (07:58)
[2021-06-17] MEDS: VITAMIN D 5,000 UNIT CAP PO SCH (07:59)
[2021-06-17] MEDS: INSULIN -REGULAR HUMAN 50 UNIT/0.5 ML ML SQ SCH ×4 (08:00→20:18)
[2021-06-17] MEDS ORDERED: INFLUENZA VACCINE (for 6+ mo) 0.5 ML DOSE IMVAC ONE (09:00)
[2021-06-17] MEDS ORDERED: PNEUMOCOCCAL VACCINE 0.5 ML IMVAC ONE (09:00)
--- NOTE | 2021-06-17 12:35 | P.PN ---
Subjective Date of Service: 06/17/21 Chief Complaint: Respiratory failure Condition stable subjectively feels better still requiring very high concentrations of oxygen Review of Systems General: Weakness Respiratory: Cough, Shortness of Breath Physical Examination - Vital Signs Temperature: 98.5 F Blood Pressure: 117/52 Pulse: 69 Respirations: 28 Pulse Ox (%): 90 - Physical Exam General: Alert, Oriented x3, Mild distress Assessment & Plan - Problems (Diagnosis) (1) Pneumonia due to COVID-19 virus Current Visit: Yes Status: Acute Plan: Respiratory failure from coronavirus condition stable still on high concentrations of oxygen chemistries reviewed continue with Barcitinib and Solu- Medrol
--- NOTE | 2021-06-17 12:42 | P.PN ---
Subjective Date of Service: 06/17/21 Chief Complaint: Respiratory failure Patient remain on high flow oxygen and 100% FiO2. He denies shortness of breath. Physical Examination - Vital Signs Temperature: 98.5 F Blood Pressure: 117/52 Pulse: 69 Respirations: 28 Pulse Ox (%): 90 Assessment And Plan - Current Problems (Diagnosis) (1) Pneumonia due to COVID-19 virus Current Visit: Yes Status: Acute (2) Acute respiratory failure with hypoxia Current Visit: Yes Status: Acute (3) Chronic kidney disease, stage 3 Current Visit: Yes Status: Acute - Plan Physical exam General: Alert, In no apparent distress, Oriented x3 HEENT: Sclerae nonicteric Neck: Supple, JVD not distended Respiratory: Normal air movement, nonlabored breathing. Cardiovascular: No edema, Regular rate/rhythm, No murmurs Gastrointestinal: Normal bowel sounds, Soft and benign, Non-distended, No tenderness Musculoskeletal: No swelling, No tenderness Integumentary: No rashes, No erythema, No cyanosis Neurological: Normal speech, Normal strength at 5/5 x4 extr Plan Continue IV steroid, vitamin and zinc supplementation. Pulmonary is following. Continue baricitinib. Monitor inflammatory markers. Titrate oxygen. HFNC and BiPAP as needed. Insulin sliding scale for glucose management.
[2021-06-18] MEDS: METHYLPREDNISOLONE 125 MG INJ IV SCH ×3 (00:22→16:08)
[2021-06-18 06:30] LABS: Absolute Lymphocytes (CBC) 1.4 K/uL (0.7-4.9); Hematocrit 36.6 % (39.6-49.0); Lymphocytes % 9.7 % (15.3-44.8); MPV 8.3 fL (7.6-11.3); RBC Red Blood Cell Count 3.84 M/uL (4.33-5.43)
[2021-06-18 06:57] LABS: Albumin 2.3 g/dL (3.4-5.0); Bilirubin Total 0.8 mg/dL (0.2-1.0); C-Reactive Protein 50.8 mg/L (<3.00); Ferritin 1548.4 ng/mL (26-388); Protein, Total 6.8 g/dL (6.4-8.2)
[2021-06-18] MEDS: APIXABAN 5 MG TABLET PO SCH ×2 (07:54→21:47)
[2021-06-18] MEDS: BARICITINIB 2 MG TABLET PO SCH (07:54)
[2021-06-18] MEDS: ASCORBIC ACID 500 MG TABLET PO SCH ×2 (07:54→21:47)
[2021-06-18] MEDS: ZINC SULFATE 220 MG CAP PO SCH (07:55)
[2021-06-18] MEDS: VITAMIN D 5,000 UNIT CAP PO SCH (07:55)
[2021-06-18] MEDS: INSULIN -REGULAR HUMAN 50 UNIT/0.5 ML ML SQ SCH ×5 (07:56→21:50)
--- NOTE | 2021-06-18 12:54 | P.PN ---
Subjective Date of Service: 06/18/21 Chief Complaint: Respiratory failure No significant change from yesterday. FiO2 weaned down to 95% He denies shortness of breath. Physical Examination - Vital Signs Temperature: 97.6 F Blood Pressure: 115/56 Pulse: 60 Respirations: 16 Pulse Ox (%): 87 - Physical Exam General: Alert, In no apparent distress HEENT: Mucous membr. moist/pink Neck: JVD not distended Respiratory: Other (Nonlabored breathing) Cardiovascular: No edema, Regular rate/rhythm, Normal S1 S2 Gastrointestinal: Soft and benign, Non-distended Musculoskeletal: No swelling Integumentary: No rashes Neurological: Normal strength at 5/5 x4 extr Assessment And Plan - Current Problems (Diagnosis) (1) Pneumonia due to COVID-19 virus Current Visit: Yes Status: Acute (2) Acute respiratory failure with hypoxia Current Visit: Yes Status: Acute (3) Chronic kidney disease, stage 3 Current Visit: Yes Status: Acute - Plan Physical exam General: Alert, In no apparent distress, Oriented x3 HEENT: Sclerae nonicteric Neck: Supple, JVD not distended Respiratory: Normal air movement, nonlabored breathing. Cardiovascular: No edema, Regular rate/rhythm, No murmurs Gastrointestinal: Normal bowel sounds, Soft and benign, Non-distended, No tenderness Musculoskeletal: No swelling, No tenderness Integumentary: No rashes, No erythema, No cyanosis Neurological: Normal speech, Normal strength at 5/5 x4 extr Plan Continue IV steroid, vitamin and zinc supplementation. Pulmonary is following. Continue baricitinib. Monitor inflammatory markers. Titrate oxygen. HFNC and BiPAP as needed. Insulin sliding scale for glucose management.
[2021-06-19] MEDS: METHYLPREDNISOLONE 125 MG INJ IV SCH ×3 (00:22→22:00)
[2021-06-19 05:48] LABS: Absolute Lymphocytes (CBC) 1.1 K/uL (0.7-4.9); Hematocrit 36.5 % (39.6-49.0); Lymphocytes % 7.5 % (15.3-44.8); MPV 7.5 fL (7.6-11.3); RBC Red Blood Cell Count 3.83 M/uL (4.33-5.43)
[2021-06-19 06:07] LABS: Albumin 2.3 g/dL (3.4-5.0); Bilirubin Total 0.8 mg/dL (0.2-1.0); Potassium 4.4 mmol/L (3.5-5.1); Protein, Total 6.5 g/dL (6.4-8.2)
[2021-06-19 06:28] LABS: Blood Morphology Comment NOT SEEN (NOT SEEN); Platelet Estimate ADEQ
[2021-06-19] MEDS: VITAMIN D 5,000 UNIT CAP PO SCH (07:53)
[2021-06-19] MEDS: ASCORBIC ACID 500 MG TABLET PO SCH ×2 (07:53→22:00)
[2021-06-19] MEDS: APIXABAN 5 MG TABLET PO SCH ×2 (07:53→22:01)
[2021-06-19] MEDS: ZINC SULFATE 220 MG CAP PO SCH (07:54)
[2021-06-19] MEDS: BARICITINIB 2 MG TABLET PO SCH (07:55)
[2021-06-19] MEDS: INSULIN -REGULAR HUMAN 50 UNIT/0.5 ML ML SQ SCH ×4 (08:40→22:02)
--- NOTE | 2021-06-19 10:47 | P.PN ---
Subjective Date of Service: 06/19/21 Chief Complaint: Respiratory failure No change in patient's condition is still requiring high concentrations of oxygen Review of Systems General: Weakness Respiratory: Shortness of Breath Physical Examination - Vital Signs Temperature: 96.9 F Blood Pressure: 115/55 Pulse: 50 Respirations: 17 Pulse Ox (%): 90 Assessment & Plan - Problems (Diagnosis) (1) Pneumonia due to COVID-19 virus Current Visit: Yes Status: Acute Plan: Respiratory failure no change in patient's condition no change in present treatment reduce the dose of Solu-Medrol patient is on Barcitinib and Solu- Medrol blood pressure stable
--- NOTE | 2021-06-19 12:20 | P.PN ---
Subjective Date of Service: 06/19/21 Chief Complaint: Respiratory failure No major changes from yesterday. Patient still on 95% FiO2. He denies shortness of breath. Physical Examination - Vital Signs Temperature: 96.9 F Blood Pressure: 115/55 Pulse: 50 Respirations: 17 Pulse Ox (%): 90 - Physical Exam General: Alert, In no apparent distress HEENT: Mucous membr. moist/pink Neck: JVD not distended Respiratory: Other (Nonlabored breathing) Cardiovascular: Regular rate/rhythm, Normal S1 S2 Gastrointestinal: Soft and benign, Non-distended Musculoskeletal: No swelling Integumentary: No rashes Neurological: Normal strength at 5/5 x4 extr Assessment And Plan - Current Problems (Diagnosis) (1) Pneumonia due to COVID-19 virus Current Visit: Yes Status: Acute (2) Acute respiratory failure with hypoxia Current Visit: Yes Status: Acute (3) Chronic kidney disease, stage 3 Current Visit: Yes Status: Acute - Plan Physical exam General: Alert, NAD. HEENT: Sclerae nonicteric Neck: Supple, JVD not distended Respiratory: Normal air movement, nonlabored breathing. Cardiovascular: No edema, Regular rate/rhythm, No murmurs Gastrointestinal: Normal bowel sounds, Soft and benign, No tenderness. Musculoskeletal: No swelling, No tenderness Integumentary: No rashes, No cyanosis Neurological: No focal motor deficit. Plan Continue IV steroid, vitamin and zinc supplementation. Pulmonary is following. Continue baricitinib. Monitor inflammatory markers. Titrate oxygen. HFNC and BiPAP as needed. Insulin sliding scale for glucose management. Watch for steroid-induced hyperglycemia.
[2021-06-20 06:09] LABS: Absolute Lymphocytes (CBC) 0.6 K/uL (0.7-4.9); Hematocrit 37.4 % (39.6-49.0); Lymphocytes % 3.6 % (15.3-44.8); MPV 7.9 fL (7.6-11.3); RBC Red Blood Cell Count 3.89 M/uL (4.33-5.43)
[2021-06-20 06:36] LABS: Potassium 4.5 mmol/L (3.5-5.1)
[2021-06-20] MEDS: ZINC SULFATE 220 MG CAP PO SCH (07:36)
[2021-06-20] MEDS: BARICITINIB 2 MG TABLET PO SCH (07:36)
[2021-06-20] MEDS: APIXABAN 5 MG TABLET PO SCH ×2 (07:36→20:11)
[2021-06-20] MEDS: METHYLPREDNISOLONE 125 MG INJ IV SCH ×2 (07:36→20:10)
[2021-06-20] MEDS: ASCORBIC ACID 500 MG TABLET PO SCH ×2 (07:36→20:11)
[2021-06-20] MEDS: VITAMIN D 5,000 UNIT CAP PO SCH (07:36)
[2021-06-20] MEDS: INSULIN -REGULAR HUMAN 50 UNIT/0.5 ML ML SQ SCH ×4 (08:00→20:11)
--- NOTE | 2021-06-20 11:32 | P.PN ---
Subjective Date of Service: 06/20/21 Chief Complaint: Respiratory failure No major changes from yesterday. No changes in FiO2 requirement over the last few days. He denies shortness of breath. He ambulated with a high flow oxygen in the room. Physical Examination - Vital Signs Temperature: 96.8 F Blood Pressure: 120/58 Pulse: 76 Respirations: 22 Pulse Ox (%): 89 Assessment And Plan - Current Problems (Diagnosis) (1) Pneumonia due to COVID-19 virus Current Visit: Yes Status: Acute (2) Acute respiratory failure with hypoxia Current Visit: Yes Status: Acute (3) Chronic kidney disease, stage 3 Current Visit: Yes Status: Acute - Plan Physical exam General: Alert, NAD. HEENT: Sclerae nonicteric Respiratory: Normal air movement, nonlabored breathing. Cardiovascular: No edema, Regular rate/rhythm, No murmurs Gastrointestinal: Normal bowel sounds, Soft and benign, No tenderness. Musculoskeletal: No swelling, No tenderness Integumentary: No rashes, No cyanosis Neurological: No focal motor deficit. Plan Continue IV steroid, vitamin and zinc supplementation. Pulmonary is following. Continue baricitinib. Monitor inflammatory markers. HFNC and BiPAP as needed. Wean FiO2 as possible. Insulin sliding scale for glucose management. Watch for steroid-induced hyperglycemia. Noted leukocytosis which could be steroid-induced.
[2021-06-21 05:39] LABS: Absolute Lymphocytes (CBC) 0.3 K/uL (0.7-4.9); Hematocrit 37.1 % (39.6-49.0); Lymphocytes % 1.7 % (15.3-44.8); MPV 8.4 fL (7.6-11.3); RBC Red Blood Cell Count 3.89 M/uL (4.33-5.43)
[2021-06-21 06:02] LABS: Albumin 2.1 g/dL (3.4-5.0); Bilirubin Total 0.9 mg/dL (0.2-1.0); Potassium 4.4 mmol/L (3.5-5.1); Protein, Total 6.2 g/dL (6.4-8.2)
[2021-06-21] MEDS: INSULIN -REGULAR HUMAN 50 UNIT/0.5 ML ML SQ SCH ×4 (07:30→20:40)
[2021-06-21] MEDS: VITAMIN D 5,000 UNIT CAP PO SCH (09:00)
[2021-06-21] MEDS: ASCORBIC ACID 500 MG TABLET PO SCH ×2 (09:28→20:39)
[2021-06-21] MEDS: METHYLPREDNISOLONE 125 MG INJ IV SCH ×2 (09:28→21:45)
[2021-06-21] MEDS: ZINC SULFATE 220 MG CAP PO SCH (09:28)
[2021-06-21] MEDS: APIXABAN 5 MG TABLET PO SCH ×2 (09:28→20:39)
[2021-06-21] MEDS: BARICITINIB 2 MG TABLET PO SCH (09:28)
--- NOTE | 2021-06-21 11:37 | P.PN ---
Subjective Date of Service: 06/21/21 Chief Complaint: Respiratory failure No change in patient's condition still requiring high concentrations of oxygen otherwise feeling well Review of Systems General: Weakness Respiratory: Shortness of Breath Physical Examination - Vital Signs Temperature: 96.8 F Blood Pressure: 100/53 Pulse: 66 Respirations: 20 Pulse Ox (%): 85 - Physical Exam General: Alert, Oriented x3, Mild distress Assessment & Plan - Problems (Diagnosis) (1) Pneumonia due to COVID-19 virus Current Visit: Yes Status: Acute Plan: Respiratory failure from coronavirus still requiring high concentrations of oxygen prognosis poor continue with present treatment on max therapy eating and drinking labs reviewed white count is mildly elevated
--- NOTE | 2021-06-21 12:56 | P.PN ---
Subjective Date of Service: 06/21/21 Chief Complaint: Respiratory failure Patient reports increased shortness of breath earlier this morning. No changes in FiO2 requirement over the last few days. Physical Examination - Vital Signs Temperature: 97.6 F Blood Pressure: 135/66 Pulse: 68 Respirations: 22 Pulse Ox (%): 86 Assessment And Plan - Current Problems (Diagnosis) (1) Pneumonia due to COVID-19 virus Current Visit: Yes Status: Acute (2) Acute respiratory failure with hypoxia Current Visit: Yes Status: Acute (3) Chronic kidney disease, stage 3 Current Visit: Yes Status: Acute - Plan Physical exam General: Alert, NAD. Respiratory: Normal air movement, nonlabored breathing. Cardiovascular: No edema, Regular rate/rhythm, No murmurs Gastrointestinal: Normal bowel sounds, Soft and benign, No tenderness. Musculoskeletal: No swelling, No tenderness Integumentary: No rashes, No cyanosis Neurological: No focal motor deficit. Plan Continue IV steroid, vitamin and zinc supplementation. Pulmonary is following. Continue baricitinib. Monitor inflammatory markers. HFNC. Wean FiO2 as possible. Insulin sliding scale for glucose management. Noted leukocytosis which could be steroid-induced. Increase activity as tolerated.
[2021-06-21] MEDS: FLUTICASONE 50MCG NASAL SPRAY NAS SCH (20:39)
[2021-06-21] MEDS: levoFLOXacin 750 MG TAB PO SCH (20:39)
[2021-06-22 04:27] LABS: Ferritin 2258.7 ng/mL (26-388)
--- NOTE | 2021-06-22 06:13 | P.PN ---
Date of Service: 06/22/21 Subjective: Feels slightly better this morning, breathing more comfortably Remains on high flow nasal cannula, FiO2 95% Denies any lower extremity swelling, no chest pain, reports some slight dry throat Dry cough No new complaints ROS: 10 point ROS as noted above, otherwise negative Physical exam GEN: Alert, oriented, NAD, sitting up at bedside HEENT: Normal conjunctiva, sclera anicteric CV: Regular rate and rhythm, no edema Pulm: slight tachypnea on HFNC 95% FiO2 ABD: Soft, nontender, nondistended Integumentary: No rashes Neuro: Normal speech, normal affect Problem List Acute hypoxemic respiratory failure secondary to COVID-19 pneumonia CKD 3 Hypothyroidism NIDDM2 Inflammatory markers slightly increased this morning Patient reports feeling better, breathing more comfortably Continues to require high levels of oxygen supplementation Pulmonology following Continue IV steroids, vitamin supplementation, baricitinib Insulin sliding scale for glucose management Patient was started on Levaquin for possible bacterial superimposed infection Activity as tolerated CXR (06/22): No significant change Code: full Dispo: anticipate dc home once tolerating <4 L NC, likely several days Time Spent Managing Pts Care (In Minutes): 35
[2021-06-22] MEDS: LEVOTHYROXINE SOD 0.1 MG TAB PO SCH (06:14)
[2021-06-22] MEDS: INSULIN -REGULAR HUMAN 50 UNIT/0.5 ML ML SQ SCH ×4 (07:30→21:09)
--- NOTE | 2021-06-22 08:27 | RAD REPORT ---
EXAM DESCRIPTION: [place] Single View06/22/2021 8:21 am CLINICAL HISTORY: Hypoxia COMPARISON: May 2021 FINDINGS: No significant change in moderate bilateral pulmonary opacities. The heart is normal size IMPRESSION: No significant change in moderate bilateral pulmonary opacities probably pneumonia
[2021-06-22] MEDS: ASPIRIN 81 MG CHEWABLE TABLET PO SCH (08:28)
[2021-06-22] MEDS: PANTOPRAZOLE 40MG TABLET PO SCH (08:28)
[2021-06-22] MEDS: APIXABAN 5 MG TABLET PO SCH ×2 (08:28→20:57)
[2021-06-22] MEDS: METHYLPREDNISOLONE 125 MG INJ IV SCH ×2 (08:29→20:58)
[2021-06-22] MEDS: levoFLOXacin 750 MG TAB PO SCH (08:29)
[2021-06-22] MEDS: FLUTICASONE 50MCG NASAL SPRAY NAS SCH ×2 (08:29→20:58)
[2021-06-22] MEDS: BARICITINIB 2 MG TABLET PO SCH (08:29)
[2021-06-22] MEDS: ASCORBIC ACID 500 MG TABLET PO SCH ×2 (08:30→20:58)
[2021-06-22] MEDS: ZINC SULFATE 220 MG CAP PO SCH (08:30)
[2021-06-22] MEDS: VITAMIN D 5,000 UNIT CAP PO SCH (08:30)
[2021-06-23 04:13] LABS: Absolute Lymphocytes (CBC) 0.4 K/uL (0.7-4.9); Hematocrit 35.8 % (39.6-49.0); Lymphocytes % 2.6 % (15.3-44.8); MPV 8.4 fL (7.6-11.3); RBC Red Blood Cell Count 3.75 M/uL (4.33-5.43)
[2021-06-23 04:48] LABS: Albumin 2.1 g/dL (3.4-5.0); Bilirubin Total 0.8 mg/dL (0.2-1.0); Ferritin 2700.7 ng/mL (26-388); Potassium 4.7 mmol/L (3.5-5.1); Protein, Total 6.5 g/dL (6.4-8.2)
[2021-06-23 05:27] LABS: Blood Morphology Comment NOT SEEN (NOT SEEN); Platelet Estimate ADEQ
[2021-06-23] MEDS: LEVOTHYROXINE SOD 0.1 MG TAB PO SCH (06:06)
--- NOTE | 2021-06-23 06:26 | P.PN ---
Date of Service: 06/23/21 Subjective: Feels better today, states more energy, breathing more comfortably. Get some sleep last night No new complaints No swelling Appetite okay, had a bowel movement today ROS: 10 point ROS as noted above, otherwise negative Physical exam GEN: Alert, oriented, NAD, sitting up at bedside HEENT: Normal conjunctiva, sclera anicteric CV: Regular rate and rhythm, no edema Pulm: Nonlabored respirations on HFNC ABD: Soft, nontender, nondistended Neuro: Normal speech, normal affect Problem List Acute hypoxemic respiratory failure secondary to COVID-19 pneumonia CKD 3 Hypothyroidism NIDDM2 Patient reports feeling better, breathing more comfortably, more energy Continues to require high levels of oxygen supplementation Pulmonology following Continue IV steroids, vitamin supplementation, baricitinib Insulin sliding scale for glucose management Patient was started on Levaquin for possible bacterial superimposed infection Activity as tolerated CXR (06/22): No significant change VTE: eliquis Code: full Dispo: anticipate dc home once tolerating <4 L NC, likely several days guarded Time Spent Managing Pts Care (In Minutes): 35
[2021-06-23] MEDS: INSULIN -REGULAR HUMAN 50 UNIT/0.5 ML ML SQ SCH ×4 (07:30→20:06)
[2021-06-23] MEDS: APIXABAN 5 MG TABLET PO SCH ×2 (09:31→20:05)
[2021-06-23] MEDS: BARICITINIB 2 MG TABLET PO SCH (09:31)
[2021-06-23] MEDS: ASPIRIN 81 MG CHEWABLE TABLET PO SCH (09:31)
[2021-06-23] MEDS: ASCORBIC ACID 500 MG TABLET PO SCH ×2 (09:32→20:05)
[2021-06-23] MEDS: VITAMIN D 5,000 UNIT CAP PO SCH (09:32)
[2021-06-23] MEDS: ZINC SULFATE 220 MG CAP PO SCH (09:32)
[2021-06-23] MEDS: PANTOPRAZOLE 40MG TABLET PO SCH (09:32)
[2021-06-23] MEDS: levoFLOXacin 750 MG TAB PO SCH (09:32)
[2021-06-23] MEDS: METHYLPREDNISOLONE 125 MG INJ IV SCH ×2 (09:34→20:06)
[2021-06-23] MEDS: FLUTICASONE 50MCG NASAL SPRAY NAS SCH ×2 (09:37→20:06)
[2021-06-24] MEDS: LEVOTHYROXINE SOD 0.1 MG TAB PO SCH (05:12)
[2021-06-24 05:58] LABS: C-Reactive Protein 52.2 mg/L (<3.00); Ferritin 2527.7 ng/mL (26-388); Potassium 4.4 mmol/L (3.5-5.1)
--- NOTE | 2021-06-24 06:16 | P.PN ---
Date of Service: 06/24/21 Subjective: Patient reports having a rough night, did not sleep well due to some coughing episodes, and later this morning was feeling better Still requiring high levels of oxygen supplementation Denies any new symptoms/concerns Appetite okay, voiding/having bowel movements ROS: 10 point ROS as noted above, otherwise negative Physical exam GEN: Alert, oriented, NAD HEENT: Normal conjunctiva, sclera anicteric CV: Regular rate and rhythm, no edema Pulm: Nonlabored respirations on HFNC, + dry cough ABD: Soft, nontender, nondistended Neuro: Normal speech, normal affect Problem List Acute hypoxemic respiratory failure secondary to COVID-19 pneumonia CKD 3 Hypothyroidism NIDDM2 Feeling a little bit worse today. Inflammatory markers improving Oxygen supplementation remains high Pulmonology following Continue IV steroids, vitamin supplementation, baricitinib Insulin sliding scale for glucose management Patient was started on Levaquin for possible bacterial superimposed infection on 06/23 Activity as tolerated CXR (06/22): No significant change VTE: eliquis Code: full Dispo: anticipate dc home once tolerating <4 L NC, likely several days, may be more appropriate for LTAC once improved/stable guarded Time Spent Managing Pts Care (In Minutes): 35
[2021-06-24] MEDS: INSULIN -REGULAR HUMAN 50 UNIT/0.5 ML ML SQ SCH ×4 (08:26→20:17)
[2021-06-24] MEDS: ZINC SULFATE 220 MG CAP PO SCH (08:27)
[2021-06-24] MEDS: ASPIRIN 81 MG CHEWABLE TABLET PO SCH (08:27)
[2021-06-24] MEDS: BARICITINIB 2 MG TABLET PO SCH (08:27)
[2021-06-24] MEDS: levoFLOXacin 750 MG TAB PO SCH (08:27)
[2021-06-24] MEDS: VITAMIN D 5,000 UNIT CAP PO SCH (08:27)
[2021-06-24] MEDS: APIXABAN 5 MG TABLET PO SCH ×2 (08:27→20:18)
[2021-06-24] MEDS: ASCORBIC ACID 500 MG TABLET PO SCH ×2 (08:27→20:18)
[2021-06-24] MEDS: PANTOPRAZOLE 40MG TABLET PO SCH (08:28)
[2021-06-24] MEDS: METHYLPREDNISOLONE 125 MG INJ IV SCH (08:28)
[2021-06-24] MEDS: FLUTICASONE 50MCG NASAL SPRAY NAS SCH ×2 (08:28→20:22)
[2021-06-24] MEDS ORDERED: FUROSEMIDE 20 MG/ 2ML VIAL IV ONE (13:51)
--- NOTE | 2021-06-24 13:52 | P.PN ---
Subjective Date of Service: 06/24/21 Chief Complaint: Respiratory failure No change in patient's condition still requiring high concentrations of oxygen eating and drinking Review of Systems General: Weakness Respiratory: Shortness of Breath Physical Examination - Vital Signs Temperature: 96.9 F Blood Pressure: 114/70 Pulse: 93 Respirations: 20 Pulse Ox (%): 90 - Physical Exam General: Alert, Moderate distress Assessment & Plan - Problems (Diagnosis) (1) Pneumonia due to COVID-19 virus Current Visit: Yes Status: Acute Plan: Respiratory failure from coronavirus no change still requiring high concentrations of oxygen eating and drinking White count is elevated but decline DC Levaquin 1 dose of Lasix reduced dose of of steroids patient is also on Barcitinib prognosis poor
[2021-06-24] MEDS: METHYLPREDNISOLONE 40 MG INJ IV SCH (20:18)
[2021-06-24] MEDS: GLUCERNA SHAKE 237 ML CAN PO SCH (20:23)
[2021-06-25 03:32] LABS: Absolute Lymphocytes (CBC) 0.3 K/uL (0.7-4.9); Hematocrit 39.8 % (39.6-49.0); Lymphocytes % 1.9 % (15.3-44.8); MPV 8.9 fL (7.6-11.3); RBC Red Blood Cell Count 4.16 M/uL (4.33-5.43)
[2021-06-25 04:06] LABS: Albumin 2.2 g/dL (3.4-5.0); Bilirubin Total 0.9 mg/dL (0.2-1.0); C-Reactive Protein 58.5 mg/L (<3.00); Ferritin 2828.6 ng/mL (26-388); Potassium 4.3 mmol/L (3.5-5.1); Protein, Total 6.8 g/dL (6.4-8.2)
[2021-06-25] MEDS: LEVOTHYROXINE SOD 0.1 MG TAB PO SCH (05:46)
--- NOTE | 2021-06-25 06:06 | P.PN ---
Date of Service: 06/25/21 Subjective: Feels better today, reports got good sleep last night Appetite doing well, urinating without issue No new complaints, cough slightly improved ROS: 10 point ROS as noted above, otherwise negative Physical exam GEN: Alert, oriented, NAD HEENT: Normal conjunctiva, sclera anicteric CV: Regular rate and rhythm, no edema Pulm: Nonlabored respirations on HFNC, +dry cough ABD: Soft, nontender, nondistended Neuro: Normal speech, normal affect, str 5/5 all extremities Problem List Acute hypoxemic respiratory failure secondary to COVID-19 pneumonia CKD 3 Hypothyroidism NIDDM2 Feels better today. Inflammatory markers improving Oxygen supplementation remains high Pulmonology following Continue IV steroids, vitamin supplementation, baricitinib Insulin sliding scale for glucose management Patient was started on Levaquin for possible bacterial superimposed infection on 06/23 Activity as tolerated CXR (06/22): No significant change Repeat chest x-ray today No significant improvements in oxygenation, patient feels better today VTE: eliquis Code: full Dispo: anticipate dc home once tolerating <4 L NC, likely several days, may be more appropriate for LTAC once improved/stable guarded Time Spent Managing Pts Care (In Minutes): 35
--- NOTE | 2021-06-25 07:22 | RAD REPORT ---
EXAM DESCRIPTION: RAD - Chest Single View - 06/25/2021 5:07 am CLINICAL HISTORY: COVID, hypoxia COMPARISON: June 22 TECHNIQUE: AP portable chest image was obtained 06/25/2021 5:07 am . FINDINGS: Lung volumes remain low. Predominantly alveolar opacification pattern is present in both l geovanna aviles. Pattern is not clearly different from prior imaging. Left costophrenic angle blunting is present favored to be portable artifact rather than enlarging pl eural effusion. This can be monitored on subsequent imaging. No pneumothorax is identifiable. Anterior pneumothorax can be occult on a portable examination. The patient has developed subcutaneous emphysema in the right shoulder and axillary region extending into the right side of the neck. Pneumomediastinum is also evident. No acute bony abnormality seen. No acute aortic findings suspected. IMPRESSION: Moderate severity, stable COVID-19 pneumonia pattern. Right-sided subcutaneous emphysema and pneumomediastinum have developed since the prior examination. No pneumothorax is identifiable. An anterior pneumothorax can be occult on a portable examination.
[2021-06-25] MEDS: INSULIN -REGULAR HUMAN 50 UNIT/0.5 ML ML SQ SCH ×4 (07:30→20:25)
[2021-06-25] MEDS: ASPIRIN 81 MG CHEWABLE TABLET PO SCH (08:22)
[2021-06-25] MEDS: PANTOPRAZOLE 40MG TABLET PO SCH (08:22)
[2021-06-25] MEDS: ASCORBIC ACID 500 MG TABLET PO SCH (08:22)
[2021-06-25] MEDS: VITAMIN D 5,000 UNIT CAP PO SCH (08:23)
[2021-06-25] MEDS: ZINC SULFATE 220 MG CAP PO SCH (08:23)
[2021-06-25] MEDS: BARICITINIB 2 MG TABLET PO SCH (08:23)
[2021-06-25] MEDS: APIXABAN 5 MG TABLET PO SCH ×2 (08:23→20:23)
[2021-06-25] MEDS: GLUCERNA SHAKE 237 ML CAN PO SCH ×2 (08:24→20:24)
[2021-06-25] MEDS: METHYLPREDNISOLONE 40 MG INJ IV SCH ×2 (08:24→20:25)
[2021-06-25] MEDS: FLUTICASONE 50MCG NASAL SPRAY NAS SCH ×2 (09:46→20:23)
--- NOTE | 2021-06-25 18:45 | RAD REPORT ---
EXAM DESCRIPTION: RAD - Chest Single View - 06/25/2021 6:35 pm CLINICAL HISTORY: worsening respiratory status COMPARISON: Chest Single View dated 06/25/2021; Chest Single View dated 06/22/2021; Chest Single View da shanelle 06/15/2021; Chest Single View dated 06/11/2021 FINDINGS: Lines: None. Lungs: Moderate bilateral airspace disease without significant change compared 14 hours prior. Pleural: No significant pleural effusions or pneumothorax. Cardiac: The heart size is within normal limits. Bones: No acute fractures. Other: Subcutaneous emphysema in the right aspect of the neck is unchanged. Pneumomediastinum again i dentified. IMPRESSION: Moderate bilateral airspace disease which is not significantly changed compared with 14 hours prior. Pneumomediastinum and subcutaneous emphysema is also unchanged. No pneumothorax identifi ed.
[2021-06-25] MEDS: ACETAMINOPHEN 500 MG TAB PO PRN (20:34)
[2021-06-26] MEDS: LEVOTHYROXINE SOD 0.1 MG TAB PO SCH (06:02)
--- NOTE | 2021-06-26 06:07 | P.PN ---
Date of Service: 06/26/21 Subjective: Oxygen requirement increasing, patient reports rough night, continues with some mild cough Feels like it is easier to take a deep breath No new complaints or concerns ROS: 10 point ROS as noted above, otherwise negative Physical exam GEN: Alert, oriented, appears tired HEENT: Normal conjunctiva, sclera anicteric CV: Regular rate and rhythm, trace pedal edema Pulm: Nonlabored respirations on HFNC, +dry cough, b/l crackles ABD: Soft, nontender, nondistended Neuro: Normal speech, normal affect Problem List Acute hypoxemic respiratory failure secondary to COVID-19 pneumonia CKD 3 Hypothyroidism NIDDM2 Inflammatory markers worsening Oxygen requirement increasing Continues with IV steroids, baricitinib Chest x-ray noted slight progression of pneumomediastinum and subcutaneous emphysema We will obtain ABG, patient may need to be placed on BiPAP in the next 24 to 48 hours Concern he may require ventilatory support in the next few days Pulmonology following Patient was started on Levaquin for possible bacterial superimposed infection on 06/23 Activity as tolerated VTE: eliquis Code: full Dispo: guarded prognosis Time Spent Managing Pts Care (In Minutes): 35
[2021-06-26 06:10] LABS: Absolute Lymphocytes (CBC) 0.7 K/uL (0.7-4.9); Hematocrit 38.4 % (39.6-49.0); Lymphocytes % 3.9 % (15.3-44.8); MPV 9.2 fL (7.6-11.3)
[2021-06-26 07:03] LABS: C-Reactive Protein 78.8 mg/L (<3.00); Ferritin 3323.2 ng/mL (26-388); Magnesium 2.5 mg/dL (1.8-2.4); Potassium 4.2 mmol/L (3.5-5.1)
[2021-06-26] MEDS: INSULIN -REGULAR HUMAN 50 UNIT/0.5 ML ML SQ SCH ×4 (07:30→19:57)
[2021-06-26] MEDS: ASPIRIN 81 MG CHEWABLE TABLET PO SCH (07:45)
[2021-06-26] MEDS: PANTOPRAZOLE 40MG TABLET PO SCH (07:45)
[2021-06-26] MEDS: APIXABAN 5 MG TABLET PO SCH ×2 (07:45→19:52)
[2021-06-26] MEDS: VITAMIN D 5,000 UNIT CAP PO SCH (07:46)
[2021-06-26] MEDS: METHYLPREDNISOLONE 40 MG INJ IV SCH ×2 (07:46→19:52)
[2021-06-26] MEDS: BARICITINIB 2 MG TABLET PO SCH (07:46)
[2021-06-26] MEDS: FLUTICASONE 50MCG NASAL SPRAY NAS SCH ×2 (07:47→19:52)
[2021-06-26] MEDS: GLUCERNA SHAKE 237 ML CAN PO SCH ×2 (07:49→19:51)
[2021-06-26 08:28] LABS: Blood Morphology Comment NOT SEEN (NOT SEEN); Platelet Estimate ADEQ; White Blood Cell Scan OK (OK)
[2021-06-26 10:21] LABS: Arterial Blood Carboxyhemoglob 0.7 % (0-1.5); Blood Gas Oxyhemoglobin 93.7 % (94-97); Blood O2 Saturation 95.3 % (92-98.5)
--- NOTE | 2021-06-26 11:21 | RAD REPORT ---
EXAM DESCRIPTION: RAD - Chest Single View - 06/26/2021 10:29 am CLINICAL HISTORY: worsening hypoxia, COVId, r/o pneumo Chest pain. COMPARISON: Chest Single View dated 06/25/2021; Chest Single View dated 06/25/2021; Chest Single View da shanelle 06/22/2021; Chest Single View dated 06/15/2021 FINDINGS: Portable technique limits examination quality. Moderate bilateral pulmonary opacities remain present, appearing essentially unchanged since yesterda y's study. The heart is upper limit normal in size. Pneumomediastinum and subcutaneous emphysema agai n seen appearing mildly progressive.No measurable pneumothorax. IMPRESSION: Mild progression in pneumomediastinum and subcutaneous emphysema since yesterday's study .
[2021-06-26] MEDS: ACETAMINOPHEN 500 MG TAB PO PRN (19:52)
[2021-06-27 06:04] LABS: Albumin 2.1 g/dL (3.4-5.0); C-Reactive Protein 90.5 mg/L (<3.00); Ferritin 3373.6 ng/mL (26-388); Magnesium 2.6 mg/dL (1.8-2.4); Potassium 4.7 mmol/L (3.5-5.1); Protein, Total 6.6 g/dL (6.4-8.2)
--- NOTE | 2021-06-27 06:04 | P.PN ---
Date of Service: 06/27/21 Subjective: Slept better overnight, feeling better today, feels like he is able to take a deeper breath Reports having some increased anxiety, especially after coughing episodes, at times feel like he cannot breathe Continues on maximum oxygen supplementation Good appetite, urinating, bowel movement yesterday ROS: 10 point ROS as noted above, otherwise negative Physical exam GEN: Alert, oriented, NAD HEENT: Normal conjunctiva, sclera anicteric CV: Regular rate and rhythm, trace pedal edema Pulm: Mildly tachypneic on high HFNC with mask over, + dry cough ABD: Soft, nontender, nondistended Neuro: Normal speech, normal affect Problem List Acute hypoxemic respiratory failure secondary to COVID-19 pneumonia CKD 3 Hypothyroidism NIDDM2 Inflammatory markers slowly uptrending Oxygen requirement maxed Continues with IV steroids, baricitinib Chest x-ray noted slight progression of pneumomediastinum and subcutaneous emphysema yesterday, opacities remain the same Concern he may require ventilatory support in the next few days Pulmonology following, dc'd levaquin (started 06/23 for possible bacterial superimposed infection) Add low-dose p.o. Ativan to help with anxiety Activity as tolerated VTE: eliquis Code: full Dispo: guarded prognosis Time Spent Managing Pts Care (In Minutes): 35
[2021-06-27] MEDS: LEVOTHYROXINE SOD 0.1 MG TAB PO SCH (06:30)
[2021-06-27] MEDS: INSULIN -REGULAR HUMAN 50 UNIT/0.5 ML ML SQ SCH ×4 (07:30→20:59)
[2021-06-27] MEDS: APIXABAN 5 MG TABLET PO SCH ×2 (08:03→20:59)
[2021-06-27] MEDS: BARICITINIB 2 MG TABLET PO SCH (08:03)
[2021-06-27] MEDS: GLUCERNA SHAKE 237 ML CAN PO SCH ×2 (08:04→21:00)
[2021-06-27] MEDS: FLUTICASONE 50MCG NASAL SPRAY NAS SCH ×2 (08:04→21:00)
[2021-06-27] MEDS: METHYLPREDNISOLONE 40 MG INJ IV SCH ×2 (08:04→20:59)
[2021-06-27] MEDS: ASPIRIN 81 MG CHEWABLE TABLET PO SCH (08:04)
[2021-06-27] MEDS: PANTOPRAZOLE 40MG TABLET PO SCH (08:04)
[2021-06-27] MEDS: VITAMIN D 5,000 UNIT CAP PO SCH (08:08)
--- NOTE | 2021-06-27 11:09 | P.PN ---
Subjective Date of Service: 06/27/21 Chief Complaint: Respiratory failure No change still requiring 100% FiO2 objectively feeling better Review of Systems General: Weakness Respiratory: Cough, Shortness of Breath Physical Examination - Vital Signs Temperature: 97.1 F Blood Pressure: 117/66 Pulse: 70 Respirations: 20 Pulse Ox (%): 92 - Physical Exam General: Alert, Oriented x3, Mild distress Assessment & Plan - Problems (Diagnosis) (1) Pneumonia due to COVID-19 virus Current Visit: Yes Status: Acute Plan: Respiratory failure no change still requiring high concentrations of oxygen patient has subcutaneous emphysema and pneumomediastinum patient is on max therapy prognosis poor
[2021-06-27] MEDS: LORAZEPAM 0.5 MG TABLET PO PRN (21:12)
[2021-06-28 04:03] LABS: Absolute Lymphocytes (CBC) 0.3 K/uL (0.7-4.9); Hematocrit 37.5 % (39.6-49.0); MPV 9.2 fL (7.6-11.3); RBC Red Blood Cell Count 3.92 M/uL (4.33-5.43)
[2021-06-28 04:49] LABS: Albumin 2.1 g/dL (3.4-5.0); Bilirubin Total 1.1 mg/dL (0.2-1.0); C-Reactive Protein 85.9 mg/L (<3.00); Ferritin 3198.4 ng/mL (26-388); Magnesium 2.5 mg/dL (1.8-2.4); Potassium 4.5 mmol/L (3.5-5.1); Protein, Total 6.9 g/dL (6.4-8.2)
[2021-06-28] MEDS: LEVOTHYROXINE SOD 0.1 MG TAB PO SCH (06:03)
--- NOTE | 2021-06-28 06:20 | P.PN ---
Date of Service: 06/28/21 Subjective: Patient was urinating this morning when he suddenly became hypoxic down to the 60s, very tachypneic and tachycardic up to 130s. Pulmonology was near the patient, and came to evaluate. Recommended transfer to ICU for likely intubation Patient reported feeling typical of himself prior to this episode Given IV Dilaudid with improvement of respirations/tachypnea. Given 500 cc normal saline bolus with improvement of his tachycardia. Oxygen saturation up to 94% within 30 minutes and remained there ROS: 10 point ROS as noted above, otherwise negative Physical exam GEN: Alert, oriented HEENT: Normal conjunctiva, sclera anicteric CV: Sinus tachycardia: [id number], no edema Pulm: Mildly tachypneic on high HFNC with mask over, + dry cough ABD: Soft, nontender, nondistended Neuro: Normal speech, normal affect Problem List Acute hypoxemic respiratory failure secondary to COVID-19 pneumonia CKD 3 Hypothyroidism NIDDM2 Overall worsening, oxygen requirement severe Continues with IV steroids, baricitinib Chest x-ray noted slight progression of pneumomediastinum and subcutaneous emphysema yesterday, opacities remain the same No ICU nursing available. Did not allow transfer to the ER Concern he may require ventilatory support in the next few days Dilaudid significantly helped patient's tachypnea and oxygenation, small bolus patient's tachycardia Pulmonology following, dc'd levaquin (started 06/23 for possible bacterial superimposed infection) Continue as needed Dilaudid, as needed Ativan Continue BiPAP as needed If unable to come off, will need to consider Dobbhoff tomorrow VTE: eliquis Code: full Dispo: guarded prognosis Time Spent Managing Pts Care (In Minutes): 35
[2021-06-28] MEDS: PANTOPRAZOLE 40MG TABLET PO SCH (07:30)
[2021-06-28] MEDS: INSULIN -REGULAR HUMAN 50 UNIT/0.5 ML ML SQ SCH ×4 (07:30→20:32)
--- NOTE | 2021-06-28 07:48 | RAD REPORT ---
EXAM DESCRIPTION: [place] Single View06/28/2021 7:09 am CLINICAL HISTORY: Shortness of breath COMPARISON: June 26, 2021 FINDINGS: Mild worsening in the diffuse bilateral pulmonary opacities. Improvement in the subcutaneous emphysema and pneumomediastinum. IMPRESSION: Mild worsening in the diffuse bilateral pulmonary opacities. Improvement in the subcutaneous emphysema and pneumomediastinum.
[2021-06-28] MEDS: LORAZEPAM 0.5 MG TABLET PO PRN ×2 (08:08→20:11)
[2021-06-28] MEDS ORDERED: HYDROMORPHONE HCL 1 MG/ML INJ IV ONE ×2 (08:33→09:25)
[2021-06-28] MEDS ORDERED: HYDROMORPHONE HCL 1 MG/ML INJ ONE (08:38)
[2021-06-28] MEDS: METHYLPREDNISOLONE 40 MG INJ IV SCH ×2 (08:46→20:00)
[2021-06-28] MEDS: FLUTICASONE 50MCG NASAL SPRAY NAS SCH ×2 (09:00→20:01)
[2021-06-28] MEDS: APIXABAN 5 MG TABLET PO SCH ×2 (09:00→20:00)
[2021-06-28] MEDS: GLUCERNA SHAKE 237 ML CAN PO SCH ×2 (09:00→20:00)
[2021-06-28] MEDS: VITAMIN D 5,000 UNIT CAP PO SCH (09:00)
[2021-06-28] MEDS: BARICITINIB 2 MG TABLET PO SCH (09:00)
[2021-06-28] MEDS: ASPIRIN 81 MG CHEWABLE TABLET PO SCH (09:00)
[2021-06-28] MEDS ORDERED: NA CHLORIDE 0.9% 500 ML IV ONE (09:32)
[2021-06-28] MEDS ORDERED: HYDROMORPHONE HCL 0.5 MG/0.5 ML INJ IV ONE (09:33)
--- NOTE | 2021-06-28 09:43 | RAD REPORT ---
EXAM DESCRIPTION: [place] Single View06/28/2021 9:29 am CLINICAL HISTORY: Shortness of breath COMPARISON: June 28, 2021 FINDINGS: No significant change in the diffuse bilateral pulmonary opacities. No change in minimal subcutaneous emphysema and pneumomediastinum.
[2021-06-28 11:27] LABS: Blood Gas Oxyhemoglobin 72.6 % (94-97); Blood O2 Saturation 74.2 % (92-98.5)
--- NOTE | 2021-06-28 12:42 | P.PN ---
Subjective Date of Service: 06/28/21 Chief Complaint: Respiratory failure Patient's condition deteriorated today developed significant respiratory distress this morning however patient's symptoms improved with the use of little dose of Dilaudid were able to avert intubation for now continues to remain on high concentrations of oxygen prognosis poor no evidence of pneumothorax on the chest x-ray Review of Systems General: Weakness Respiratory: Shortness of Breath Physical Examination - Vital Signs Temperature: 98 F Blood Pressure: 138/89 Pulse: 142 Respirations: 38 Pulse Ox (%): 93 - Physical Exam General: Alert, Severe distress Respiratory: Diminished Cardiovascular: No edema, Normal S1 S2 Assessment & Plan - Problems (Diagnosis) (1) Pneumonia due to COVID-19 virus Current Visit: Yes Status: Acute Plan: Respiratory failure from coronavirus patient developed significant respiratory distress this morning given some Dilaudid barely avoided intubation chest x-ray did not show any evidence of pneumothorax he does had worsening bilateral pulmonary infiltrate had no significant response to conventional therapy gnosis is poor labs medication list reviewed chest x-ray still shows a worsening infiltrate daily Andrea
[2021-06-28] MEDS: FUROSEMIDE 20 MG/ 2ML VIAL IV SCH (13:45)
[2021-06-29] MEDS: HYDROMORPHONE HCL 0.5 MG/0.5 ML INJ IV PRN ×3 (00:26→21:18)
[2021-06-29] MEDS: LEVOTHYROXINE SOD 0.1 MG TAB PO SCH (05:51)
[2021-06-29 06:18] LABS: Hematocrit 38.6 % (39.6-49.0); MPV 9.2 fL (7.6-11.3); RBC Red Blood Cell Count 4.06 M/uL (4.33-5.43)
[2021-06-29 07:00] LABS: Albumin 2.2 g/dL (3.4-5.0); Bilirubin Total 1.1 mg/dL (0.2-1.0); Ferritin 3786.6 ng/mL (26-388); Potassium 4.6 mmol/L (3.5-5.1); Protein, Total 7.3 g/dL (6.4-8.2)
[2021-06-29] MEDS: INSULIN -REGULAR HUMAN 50 UNIT/0.5 ML ML SQ SCH ×4 (07:30→20:25)
[2021-06-29] MEDS: PANTOPRAZOLE 40MG TABLET PO SCH (07:30)
[2021-06-29] MEDS: FLUTICASONE 50MCG NASAL SPRAY NAS SCH ×2 (08:59→20:24)
[2021-06-29] MEDS: METHYLPREDNISOLONE 40 MG INJ IV SCH ×2 (08:59→21:11)
[2021-06-29] MEDS: FUROSEMIDE 20 MG/ 2ML VIAL IV SCH (08:59)
[2021-06-29] MEDS: APIXABAN 5 MG TABLET PO SCH ×2 (09:00→20:24)
[2021-06-29] MEDS: GLUCERNA SHAKE 237 ML CAN PO SCH ×2 (09:00→20:24)
[2021-06-29] MEDS: BARICITINIB 2 MG TABLET PO SCH (09:00)
[2021-06-29] MEDS: VITAMIN D 5,000 UNIT CAP PO SCH (09:00)
[2021-06-29] MEDS: ASPIRIN 81 MG CHEWABLE TABLET PO SCH (09:00)
--- NOTE | 2021-06-29 17:24 | P.PN ---
Subjective Date of Service: 06/29/21 Chief Complaint: Respiratory failure No major changes from yesterday. Patient is currently stable on BiPAP. Physical Examination - Vital Signs Temperature: 97.2 F Blood Pressure: 141/80 Pulse: 112 Respirations: 20 Pulse Ox (%): 92 Assessment And Plan - Current Problems (Diagnosis) (1) Pneumonia due to COVID-19 virus Current Visit: Yes Status: Acute (2) Acute respiratory failure with hypoxia Current Visit: Yes Status: Acute (3) Chronic kidney disease, stage 3 Current Visit: Yes Status: Acute - Plan Physical exam General: Alert, NAD. Respiratory: Normal air movement, nonlabored breathing on BiPAP Cardiovascular: No edema, Regular rate/rhythm, No murmurs Gastrointestinal: Normal bowel sounds, Soft and benign, No tenderness. Musculoskeletal: No swelling, No tenderness Integumentary: No rashes, No cyanosis Neurological: No focal motor deficit. Plan Continue IV steroid, vitamin and zinc supplementation. Pulmonary is following. Completed baricitinib. HFNC and BIPAP as needed. Wean FiO2 as possible. Insulin sliding scale for glucose management. Noted leukocytosis which could be steroid-induced. Stable. Status post Levaquin for possible bacterial superimposed infection.
[2021-06-30] MEDS: HYDROMORPHONE HCL 0.5 MG/0.5 ML INJ IV PRN ×6 (00:15→23:23)
[2021-06-30 05:02] LABS: Absolute Lymphocytes (CBC) 0.3 K/uL (0.7-4.9); Hematocrit 43.9 % (39.6-49.0); Lymphocytes % 1.4 % (15.3-44.8); MPV 9.7 fL (7.6-11.3)
[2021-06-30 05:05] LABS: Potassium 5.2 mmol/L (3.5-5.1)
[2021-06-30 05:26] LABS: Blood Morphology Comment NOT SEEN (NOT SEEN); Platelet Estimate ADEQ
[2021-06-30] MEDS: LEVOTHYROXINE SOD 0.1 MG TAB PO SCH (06:30)
[2021-06-30] MEDS: INSULIN -REGULAR HUMAN 50 UNIT/0.5 ML ML SQ SCH ×4 (07:30→19:58)
[2021-06-30] MEDS: PANTOPRAZOLE 40MG TABLET PO SCH (07:30)
[2021-06-30] MEDS: FUROSEMIDE 20 MG/ 2ML VIAL IV SCH (08:13)
[2021-06-30] MEDS: METHYLPREDNISOLONE 40 MG INJ IV SCH ×2 (08:13→21:16)
[2021-06-30] MEDS: VITAMIN D 5,000 UNIT CAP PO SCH (08:16)
[2021-06-30] MEDS: ASPIRIN 81 MG CHEWABLE TABLET PO SCH (08:16)
[2021-06-30] MEDS: GLUCERNA SHAKE 237 ML CAN PO SCH ×2 (08:16→19:58)
[2021-06-30] MEDS: FLUTICASONE 50MCG NASAL SPRAY NAS SCH ×2 (08:16→19:58)
[2021-06-30] MEDS: APIXABAN 5 MG TABLET PO SCH ×2 (08:16→19:58)
--- NOTE | 2021-06-30 11:47 | RAD REPORT ---
EXAM DESCRIPTION: RAD - Chest Single View - 06/30/2021 11:25 am CLINICAL HISTORY: respiratory distress COMPARISON: June 28 TECHNIQUE: AP portable chest image was obtained 06/30/2021 11:25 am . FINDINGS: Lung volumes are low. Bilateral airspace opacities are present most pronounced in the mid left lung field and lower right lung field. Right base findings may be slightly worse. Trachea is midline. Heart and vasculature are normal. No measurable pleural effusion and no pneumotho rax. No acute bony abnormality seen. No acute aortic findings suspected. IMPRESSION: Extensive bilateral airspace opacification questionably worse in the right lung base. No failure or volume overload component suspected.
--- NOTE | 2021-06-30 15:29 | P.PN ---
Subjective Date of Service: 06/30/21 Chief Complaint: Respiratory failure Rapid response was called on the patient this morning for unexplained hypoxemia on BiPAP. Patient oxygen saturation recovered quickly. Currently stable on the BiPAP. Physical Examination - Vital Signs Temperature: 97.3 F Blood Pressure: 153/84 Pulse: 113 Respirations: 21 Pulse Ox (%): 93 Assessment And Plan - Current Problems (Diagnosis) (1) Pneumonia due to COVID-19 virus Current Visit: Yes Status: Acute (2) Acute respiratory failure with hypoxia Current Visit: Yes Status: Acute (3) Chronic kidney disease, stage 3 Current Visit: Yes Status: Acute - Plan Physical exam General: Alert, NAD. Respiratory: Normal air movement, nonlabored breathing on BiPAP Cardiovascular: No edema, Regular rate/rhythm, No murmurs Gastrointestinal: Normal bowel sounds, Soft and benign, No tenderness. Musculoskeletal: No swelling, No tenderness Integumentary: No rashes, No cyanosis Neurological: No focal motor deficit. Plan: Repeat chest x-ray reviewed. No pneumothorax. Continue IV steroid, vitamin and zinc supplementation. Pulmonary is following. Completed baricitinib. HFNC and BIPAP as needed. Wean FiO2 as possible. Insulin sliding scale for glucose management. Noted leukocytosis which could be steroid-induced. Status post Levaquin for possible bacterial superimposed infection.
[2021-06-30] MEDS: LORazepam 2 MG/ML VIAL IV PRN (21:23)
[2021-07-01] MEDS: HYDROMORPHONE HCL 0.5 MG/0.5 ML INJ IV PRN ×3 (02:37→19:25)
[2021-07-01 04:23] LABS: Absolute Lymphocytes (CBC) 0.4 K/uL (0.7-4.9); Hematocrit 46.3 % (39.6-49.0); Lymphocytes % 1.7 % (15.3-44.8); RBC Red Blood Cell Count 4.83 M/uL (4.33-5.43)
[2021-07-01 04:38] LABS: Albumin 2.3 g/dL (3.4-5.0); Potassium 5.3 mmol/L (3.5-5.1); Protein, Total 8.2 g/dL (6.4-8.2)
[2021-07-01] MEDS: LEVOTHYROXINE SOD 0.1 MG TAB PO SCH (06:10)
[2021-07-01] MEDS: LORazepam 2 MG/ML VIAL IV PRN ×2 (06:15→13:58)
[2021-07-01] MEDS: INSULIN -REGULAR HUMAN 50 UNIT/0.5 ML ML SQ SCH ×4 (07:30→21:00)
[2021-07-01] MEDS: PANTOPRAZOLE 40MG TABLET PO SCH (07:30)
[2021-07-01] MEDS: APIXABAN 5 MG TABLET PO SCH (09:00)
[2021-07-01] MEDS: GLUCERNA SHAKE 237 ML CAN PO SCH ×2 (09:00→21:00)
[2021-07-01] MEDS: VITAMIN D 5,000 UNIT CAP PO SCH (09:00)
[2021-07-01] MEDS: FLUTICASONE 50MCG NASAL SPRAY NAS SCH ×2 (09:00→21:00)
[2021-07-01] MEDS: ASPIRIN 81 MG CHEWABLE TABLET PO SCH (09:00)
[2021-07-01] MEDS ORDERED: SOD POLYSTYREN SUL 15 GM/60 ML UCUP PO ONE (09:14)
[2021-07-01] MEDS: FUROSEMIDE 20 MG/ 2ML VIAL IV SCH (09:41)
[2021-07-01] MEDS: METHYLPREDNISOLONE 40 MG INJ IV SCH ×2 (09:42→22:32)
[2021-07-01] MEDS ORDERED: DEXMEDETOMIDINE HCL 200 MCG in NA CHLORIDE 0.9% 98 ML IV SCH (10:00)
[2021-07-01] MEDS ORDERED: HYDRALAZINE HCL 20 MG/ML VIAL IV PRN ×2 (11:53→11:57)
[2021-07-01] MEDS ORDERED: ENOXAPARIN 40 MG/0.4 ML SQ SCH (13:00)
--- NOTE | 2021-07-01 13:13 | P.PN ---
Subjective Date of Service: 07/01/21 Chief Complaint: Respiratory failure Patient developing intermittent hypoxia on the BiPAP. He became tachypneic, with SaO2 79% on the BiPAP last night. Patient transferred to the ICU. Currently stable on the BiPAP. Physical Examination - Vital Signs Temperature: 98.6 F Blood Pressure: 136/90 Pulse: 106 Respirations: 16 Pulse Ox (%): 94 Assessment And Plan - Current Problems (Diagnosis) (1) Pneumonia due to COVID-19 virus Current Visit: Yes Status: Acute (2) Acute respiratory failure with hypoxia Current Visit: Yes Status: Acute (3) Chronic kidney disease, stage 3 Current Visit: Yes Status: Acute (4) Hypertension Current Visit: Yes Status: Acute (5) Sepsis Current Visit: Yes Status: Acute (6) Hyperkalemia Current Visit: Yes Status: Acute - Plan Physical exam General: Sedated, NAD. HEENT: On BiPAP Respiratory: Normal air movement, nonlabored breathing on BiPAP Cardiovascular: No edema, Regular rate/rhythm, No murmurs Gastrointestinal: Normal bowel sounds, Soft and benign, No tenderness. Musculoskeletal: No swelling, No tenderness Integumentary: No rashes, No cyanosis Neurological: No focal motor deficit. Plan: Continue IV steroid, vitamin and zinc supplementation. Pulmonary is following. Patient currently sedated with Precedex Completed baricitinib. HFNC and BIPAP as needed. Insulin sliding scale for glucose management. Noted leukocytosis which could be steroid-induced. We will start IV Rocephin to cover secondary bacterial infection. Repeat blood cultures. Patient is currently n.p.o.. IV hydralazine as needed for BP spikes. Kayexalate for hyperkalemia. Lovenox for DVT prophylaxis.
[2021-07-01] MEDS: CEFTRIAXONE 1,000 MG in NA CHLORIDE 0.9% 50 ML IVPB SCH (14:02)
[2021-07-01] MEDS: DEXMEDETOMIDINE HCL 1,000 MCG in NA CHLORIDE 0.9% 490 ML IV SCH (15:16)
[2021-07-01] MEDS ORDERED: FENTANYL CITR 100 MCG/2 ML IV PRN (20:01)
[2021-07-01] MEDS ORDERED: HALOPERIDOL LACT 5 MG/ML INJ IV PRN (20:01)
[2021-07-01] MEDS ORDERED: RSI MEDICATION KIT IV ONE (20:03)
[2021-07-01] MEDS ORDERED: propofoL 200 MG/20 ML VIAL IV ONE (20:23)
[2021-07-01] MEDS ORDERED: NA CHLORIDE 0.9% 1,000 ML ONE (20:23)
[2021-07-01] MEDS ORDERED: propofoL 1,000 MG/100 ML VIAL IV ONE (20:23)
[2021-07-01] MEDS ORDERED: Caclcium Chloride 10% INJ SYR IV ONE ×2 (20:36)
[2021-07-01] MEDS ORDERED: NOREPINEPHRINE 4mg/D5W 250mL 4 MG/250 ML BAG IV ONE (20:37)
[2021-07-01] MEDS ORDERED: Phenylephrine HCl 10 MG/ML 1 ML VIAL ONE (20:38)
[2021-07-01] MEDS: NOREPINEPHRINE 4 MG in D5W 250 ML IV SCH (20:40)
[2021-07-01] MEDS: propofoL 1,000 MG/100 ML VIAL IV PRN (21:00)
[2021-07-01] MEDS ORDERED: MIDAZOLAM HCL 2 MG/2 ML INJ ONE (21:03)
[2021-07-01] MEDS: MIDAZOLAM HCL 2 MG/2 ML INJ IV PRN (21:05)
--- NOTE | 2021-07-01 21:21 | RAD REPORT ---
EXAM DESCRIPTION: RAD - Chest Single View - 07/01/2021 9:12 pm CLINICAL HISTORY: ett placement COMPARISON: Chest Single View dated 06/30/2021; Chest Single View dated 06/28/2021; Chest Single View dated 06/28/2021; Chest Single View dated 06/26/2021 FINDINGS: Interval intubation with tip of the endotracheal tube at the superior aspect of the aortic arch. Interval development of subcutaneous emphysema in the right neck. A right IJ approach central venous line tip terminates overlying the SVC. No pneumothorax identified. Enteric tube below the diap hragm. Question development of pneumomediastinum. Widespread bilateral airspace disease. IMPRESSION: The endotracheal tube and right IJ approach central line are in satisfactory position. E nteric tube could be advanced by 6 cm for more optimal positioning. Question pneumomediastinum. Subcutaneous emphysema in the right neck may be related to central line p lacement versus pneumomediastinum. No pneumothorax identified.
[2021-07-01] MEDS: FAMOTIDINE 20 MG/2 ML VIAL IV SCH (22:33)
[2021-07-02] MEDS: propofoL 1,000 MG/100 ML VIAL IV PRN ×5 (00:30→23:38)
[2021-07-02] MEDS: INSULIN -REGULAR HUMAN 50 UNIT/0.5 ML ML SQ SCH ×5 (00:31→23:38)
[2021-07-02 02:09] LABS: Arterial Blood Carboxyhemoglob 0.8 % (0-1.5); Blood Gas Oxyhemoglobin 94.9 % (94-97); Blood O2 Saturation 96.9 % (92-98.5)
[2021-07-02] MEDS: MIDAZOLAM HCL 2 MG/2 ML INJ IV PRN ×2 (05:50→18:41)
[2021-07-02] MEDS: LEVOTHYROXINE SOD 0.1 MG TAB PO SCH (05:52)
[2021-07-02 05:58] LABS: Absolute Lymphocytes (CBC) 0.5 K/uL (0.7-4.9); Hematocrit 38.6 % (39.6-49.0); Lymphocytes % 3.4 % (15.3-44.8); MPV 9.9 fL (7.6-11.3)
[2021-07-02 06:14] LABS: Blood Gas Oxyhemoglobin 88.2 % (94-97); Blood O2 Saturation 90.2 % (92-98.5)
[2021-07-02 06:33] LABS: Albumin 1.9 g/dL (3.4-5.0); Bilirubin Total 0.6 mg/dL (0.2-1.0); Phosphorus 4.2 mg/dL (2.5-4.9); Potassium 4.3 mmol/L (3.5-5.1); Protein, Total 6.7 g/dL (6.4-8.2)
[2021-07-02] MEDS: PANTOPRAZOLE 40MG TABLET PO SCH (07:30)
--- NOTE | 2021-07-02 07:36 | RAD REPORT ---
EXAM DESCRIPTION: RAD - Chest Single View - 07/02/2021 6:24 am CLINICAL HISTORY: covid pneumonia COMPARISON: Chest Single View dated 07/01/2021; Chest Single View dated 06/30/2021; Chest Single View dated 06/28/2021; Chest Single View dated 06/28/2021 FINDINGS: Lines: Endotracheal tube at the aortic arch. Enteric tube overlying the stomach. Right IJ approach central line terminating or underlying the SVC. Lungs: Worsened appearance of bilateral widespread airspace disease. Pleural: No significant pleural effusions or pneumothorax. Cardiac: The heart size is within normal limits. Bones: No acute fractures. Other: IMPRESSION: Stable support apparatus. Worsening aeration lungs compatible with multifocal pneumonia. No pneumothorax or pneumomediastinum identified.
[2021-07-02] MEDS: GLUCERNA SHAKE 237 ML CAN PO SCH ×2 (08:48→20:11)
[2021-07-02] MEDS: FLUTICASONE 50MCG NASAL SPRAY NAS SCH ×2 (08:48→20:11)
[2021-07-02] MEDS: METHYLPREDNISOLONE 40 MG INJ IV SCH ×2 (08:57→20:10)
[2021-07-02] MEDS: ASPIRIN 81 MG CHEWABLE TABLET PO SCH (08:57)
[2021-07-02] MEDS: CEFTRIAXONE 1,000 MG in NA CHLORIDE 0.9% 50 ML IVPB SCH (08:57)
[2021-07-02] MEDS: FLUCONAZOLE 100 MG TAB PO SCH (08:57)
[2021-07-02] MEDS: FAMOTIDINE 20 MG/2 ML VIAL IV SCH ×2 (08:57→20:10)
[2021-07-02] MEDS: VITAMIN D 5,000 UNIT CAP PO SCH (08:58)
[2021-07-02] MEDS ORDERED: ENOXAPARIN 40 MG/0.4 ML SQ SCH (09:00)
[2021-07-02] MEDS: HYDROMORPHONE HCL 0.5 MG/0.5 ML INJ IV PRN ×2 (09:14→20:12)
[2021-07-02] MEDS ORDERED: CISATRACURIUM INJECTION 2 MG/ML (10 ML Vial) IV ONE (09:42)
[2021-07-02] MEDS: DEXMEDETOMIDINE HCL 1,000 MCG in NA CHLORIDE 0.9% 490 ML IV SCH (09:56)
[2021-07-02] MEDS ORDERED: DEXMEDETOMIDINE HCL 200 MCG in NA CHLORIDE 0.9% 98 ML IV SCH (10:00)
[2021-07-02] MEDS ORDERED: SUCCINYLCHOLINE 20 MG/ML (10 ML) IV ONE (10:57)
--- NOTE | 2021-07-02 11:07 | P.PN ---
Subjective Date of Service: 07/02/21 Chief Complaint: Respiratory failure Patient's condition deteriorated yesterday transferred to the ICU intubated currently he is stable oxygenation satisfactory requiring sedation and paralytic drug Review of Systems is unable to be obtained Physical Examination - Vital Signs Temperature: 98.9 F Blood Pressure: 105/67 Pulse: 72 Respirations: 34 Pulse Ox (%): 83 - Physical Exam General: Unresponsive Respiratory: Clear to auscultation bilaterally, Diminished Assessment & Plan - Problems (Diagnosis) (1) Pneumonia due to COVID-19 virus Current Visit: Yes Status: Acute Plan: Respiratory failure from coronavirus continue to titrate O2 down to a sat of 90% PEEP has been increased to 10 changed to pressure control ventilation White count is declining BUN elevated start tube feeds NG water flushes changed to Xarelto for DVT prophylaxis on 75% FiO2 saturations satisfactory
[2021-07-02 11:17] LABS: Blood Gas Oxyhemoglobin 92.4 % (94-97)
[2021-07-02 11:18] LABS: Arterial Blood Carboxyhemoglob 0.6 % (0-1.5); Blood O2 Saturation 94.1 % (92-98.5)
--- NOTE | 2021-07-02 13:28 | P.PN ---
Subjective Date of Service: 07/02/21 Chief Complaint: Respiratory failure Per report, patient developed respiratory distress on the BiPAP and was intubated last night. Occasionally hypoxic on mechanical ventilation. Physical Examination - Vital Signs Temperature: 98.9 F Blood Pressure: 121/66 Pulse: 103 Respirations: 31 Pulse Ox (%): 88 Assessment And Plan - Current Problems (Diagnosis) (1) Pneumonia due to COVID-19 virus Current Visit: Yes Status: Acute (2) Acute respiratory failure with hypoxia Current Visit: Yes Status: Acute (3) Chronic kidney disease, stage 3 Current Visit: Yes Status: Acute (4) Hypertension Current Visit: Yes Status: Acute (5) Sepsis Current Visit: Yes Status: Acute (6) Hyperkalemia Current Visit: Yes Status: Acute - Plan Physical exam General: Sedated, on mechanical ventilation. Respiratory: Normal air movement. Cardiovascular: No edema, Regular rhythm, tachycardic. Gastrointestinal: Normal bowel sounds, Soft and benign, No tenderness. Musculoskeletal: No swelling, No tenderness Integumentary: No rashes, No cyanosis Neurological: No focal motor deficit. Plan: Continue IV steroid, vitamin and zinc supplementation. Pulmonary is following. On mechanical ventilation Completed baricitinib. Insulin sliding scale for glucose management. Noted leukocytosis which could be steroid-induced. Continue IV Rocephin to cover secondary bacterial infection. IV hydralazine as needed for BP spikes. Lovenox for DVT prophylaxis.
[2021-07-02 14:14] LABS: Arterial Blood Carboxyhemoglob 0.9 % (0-1.5); Blood Gas Oxyhemoglobin 87.2 % (94-97); Blood O2 Saturation 89.2 % (92-98.5)
[2021-07-02 18:13] LABS: Arterial Blood Carboxyhemoglob 0.9 % (0-1.5); Blood Gas Oxyhemoglobin 89.8 % (94-97); Blood O2 Saturation 91.8 % (92-98.5)
[2021-07-03] MEDS: MIDAZOLAM HCL 2 MG/2 ML INJ IV PRN (02:14)
[2021-07-03] MEDS: propofoL 1,000 MG/100 ML VIAL IV PRN ×5 (04:30→21:23)
[2021-07-03 05:39] LABS: Absolute Lymphocytes (CBC) 0.2 K/uL (0.7-4.9); Hematocrit 38.4 % (39.6-49.0); Lymphocytes % 2.3 % (15.3-44.8); MPV 10.4 fL (7.6-11.3); RBC Red Blood Cell Count 3.97 M/uL (4.33-5.43)
[2021-07-03] MEDS: LEVOTHYROXINE SOD 0.1 MG TAB PO SCH (05:49)
[2021-07-03 05:56] LABS: Albumin 1.8 g/dL (3.4-5.0); Bilirubin Total 0.6 mg/dL (0.2-1.0); Magnesium 2.9 mg/dL (1.8-2.4); Phosphorus 3.6 mg/dL (2.5-4.9); Potassium 4.6 mmol/L (3.5-5.1); Protein, Total 6.6 g/dL (6.4-8.2)
[2021-07-03] MEDS: HYDROMORPHONE HCL 0.5 MG/0.5 ML INJ IV PRN ×2 (06:02→21:55)
[2021-07-03] MEDS: INSULIN -REGULAR HUMAN 50 UNIT/0.5 ML ML SQ SCH ×4 (06:06→23:53)
--- NOTE | 2021-07-03 07:58 | RAD REPORT ---
EXAM DESCRIPTION: RAD - Chest Single View - 07/03/2021 6:44 am CLINICAL HISTORY: covid pneumonia COMPARISON: Chest Single View dated 07/02/2021; Chest Single View dated 07/01/2021; Chest Single View dated 06/30/2021; Chest Single View dated 06/28/2021; Chest For Pe Angio dated 06/16/2021 FINDINGS: Lines: Right IJ approach central line with tip overlying the SVC . Enteric tube overlying the stomach. Endotracheal tube approximately 10 millimeters above the aortic arch. Lungs: Moderate to severe bilateral airspace disease is unchanged Pleural: No significant pleural effusions or pneumothorax. Cardiac: The heart size is within normal limits. Bones: No acute fractures. Other: Small volume of subcutaneous emphysema in the right supraclavicular region. IMPRESSION: No significant change in aeration of the lungs with moderate to severe bilateral airspac e disease. Endotracheal tube is 10 millimeters above the aortic arch. Consider advancing by 15 millim eters.
[2021-07-03] MEDS: METHYLPREDNISOLONE 40 MG INJ IV SCH ×2 (08:25→19:59)
[2021-07-03] MEDS: FAMOTIDINE 20 MG/2 ML VIAL IV SCH ×2 (08:25→19:59)
[2021-07-03] MEDS: FLUCONAZOLE 100 MG TAB PO SCH ×2 (08:27→14:00)
[2021-07-03] MEDS: VITAMIN D 5,000 UNIT CAP PO SCH ×2 (08:27→14:00)
[2021-07-03] MEDS: RIVAROXABAN 10 MG TABLET PO SCH ×2 (08:27→14:00)
[2021-07-03] MEDS: ASPIRIN 81 MG CHEWABLE TABLET PO SCH ×2 (08:27→14:00)
[2021-07-03] MEDS: GLUCERNA SHAKE 237 ML CAN PO SCH ×2 (08:28→20:00)
[2021-07-03] MEDS: FLUTICASONE 50MCG NASAL SPRAY NAS SCH ×2 (08:28→20:00)
[2021-07-03] MEDS: CEFTRIAXONE 1,000 MG in NA CHLORIDE 0.9% 50 ML IVPB SCH (08:29)
[2021-07-03 10:03] LABS: Arterial Blood Carboxyhemoglob 0.8 % (0-1.5); Blood Gas Oxyhemoglobin 89.1 % (94-97)
--- NOTE | 2021-07-03 10:25 | P.PN ---
Subjective Date of Service: 07/03/21 Chief Complaint: Respiratory failure Condition stable on as needed paralytic medication chest x-ray shows an improvement oxygen requirements declining blood sugars elevated Review of Systems is unable to be obtained Physical Examination - Vital Signs Temperature: 98.2 F Blood Pressure: 137/67 Pulse: 98 Respirations: 23 Pulse Ox (%): 94 - Physical Exam General: Unresponsive Assessment & Plan - Problems (Diagnosis) (1) Pneumonia due to COVID-19 virus Current Visit: Yes Status: Acute Plan: Respiratory failure chest x-ray improving White count is normal renal function is improving control blood sugar add subcutaneous insulin otherwise no change endotracheal tube needs to be advanced to 15 mm chest x-ray reviewed
--- NOTE | 2021-07-03 12:27 | P.PN ---
Subjective Date of Service: 07/03/21 Chief Complaint: Respiratory failure Patient is stable on the vent. No issues overnight. Blood pressure stable. Physical Examination - Vital Signs Temperature: 98.2 F Blood Pressure: 137/67 Pulse: 98 Respirations: 23 Pulse Ox (%): 94 Assessment And Plan - Current Problems (Diagnosis) (1) Pneumonia due to COVID-19 virus Current Visit: Yes Status: Acute (2) Acute respiratory failure with hypoxia Current Visit: Yes Status: Acute (3) Chronic kidney disease, stage 3 Current Visit: Yes Status: Acute (4) Hypertension Current Visit: Yes Status: Acute (5) Sepsis Current Visit: Yes Status: Acute (6) Hyperkalemia Current Visit: Yes Status: Acute - Plan Physical exam General: Sedated, on mechanical ventilation. Respiratory: Normal air movement. Cardiovascular: No edema, Regular rhythm, tachycardic. Gastrointestinal: Normal bowel sounds, Soft and benign, No tenderness. Musculoskeletal: No swelling, No tenderness Integumentary: No rashes, No cyanosis Neurological: No focal motor deficit. Plan: Continue IV steroid, vitamin and zinc supplementation. On mechanical ventilation. Advance ET tube per radiology. RT is managing ET tube positioning. On Nimbex for vent paralysis. Completed baricitinib. Insulin sliding scale for glucose management. Patient started on Lantus insulin for blood sugar control Noted leukocytosis which could be steroid-induced. Continue IV Rocephin to cover secondary bacterial infection. Blood cultures: No growth to date. IV hydralazine as needed for BP spikes. Xarelto for DVT prophylaxis.
[2021-07-03] MEDS: INSULIN GLARGINE 100 UNIT/ML SQ SCH ×2 (12:30→19:59)
--- NOTE | 2021-07-03 13:35 | RAD REPORT ---
EXAM DESCRIPTION: RAD - Abdomen 1 View (KUB) - 07/03/2021 12:15 pm CLINICAL HISTORY: doboff placement COMPARISON: Chest Single View dated 07/03/2021 FINDINGS: Nonobstructive bowel gas pattern. No acute osseous abnormality.Visualized lungs are unrema rkable.No abnormal calcifications. Weighted feeding tube overlies the stomach. Corpectomy changes at L3-4. IMPRESSION: Nonobstructive bowel gas pattern. Weighted feeding tube overlies the stomach.
[2021-07-04] MEDS: propofoL 1,000 MG/100 ML VIAL IV PRN ×6 (01:54→23:40)
[2021-07-04] MEDS: VITAL AF 1,000 ML BOT RTH SCH (01:55)
[2021-07-04 05:47] LABS: Absolute Lymphocytes (CBC) 0.3 K/uL (0.7-4.9); Hematocrit 37.4 % (39.6-49.0); Lymphocytes % 3.8 % (15.3-44.8); RBC Red Blood Cell Count 3.85 M/uL (4.33-5.43)
[2021-07-04] MEDS: INSULIN -REGULAR HUMAN 50 UNIT/0.5 ML ML SQ SCH ×4 (05:52→23:45)
[2021-07-04] MEDS: LEVOTHYROXINE SOD 0.1 MG TAB PO SCH (05:54)
[2021-07-04 06:05] LABS: Albumin 1.8 g/dL (3.4-5.0); Bilirubin Total 0.5 mg/dL (0.2-1.0); Potassium 4.6 mmol/L (3.5-5.1); Protein, Total 6.6 g/dL (6.4-8.2)
[2021-07-04] MEDS: CEFTRIAXONE 1,000 MG in NA CHLORIDE 0.9% 50 ML IVPB SCH (07:51)
[2021-07-04] MEDS: FAMOTIDINE 20 MG/2 ML VIAL IV SCH ×2 (07:51→20:20)
[2021-07-04] MEDS: METHYLPREDNISOLONE 40 MG INJ IV SCH ×2 (07:51→20:19)
[2021-07-04] MEDS: FLUTICASONE 50MCG NASAL SPRAY NAS SCH ×2 (07:52→20:21)
[2021-07-04] MEDS: RIVAROXABAN 10 MG TABLET PO SCH (07:52)
[2021-07-04] MEDS: GLUCERNA SHAKE 237 ML CAN PO SCH ×2 (07:52→20:21)
[2021-07-04] MEDS: ASPIRIN 81 MG CHEWABLE TABLET PO SCH (07:52)
[2021-07-04] MEDS: FLUCONAZOLE 100 MG TAB PO SCH (07:52)
[2021-07-04] MEDS: VITAMIN D 5,000 UNIT CAP PO SCH (07:53)
[2021-07-04] MEDS: INSULIN GLARGINE 100 UNIT/ML SQ SCH ×2 (07:55→20:20)
[2021-07-04] MEDS: HYDROMORPHONE HCL 0.5 MG/0.5 ML INJ IV PRN ×2 (09:43→14:30)
--- NOTE | 2021-07-04 11:08 | P.PN ---
Subjective Date of Service: 07/04/21 Chief Complaint: Respiratory failure No new changes from yesterday. Patient currently on 70% FiO2 with oxygen saturation in the high 80s to 90. NG tube changed to [place]. Physical Examination - Vital Signs Temperature: 97.7 F Blood Pressure: 153/67 Pulse: 89 Respirations: 31 Pulse Ox (%): 90 Assessment And Plan - Current Problems (Diagnosis) (1) Pneumonia due to COVID-19 virus Current Visit: Yes Status: Acute (2) Acute respiratory failure with hypoxia Current Visit: Yes Status: Acute (3) Chronic kidney disease, stage 3 Current Visit: Yes Status: Acute (4) Hypertension Current Visit: Yes Status: Acute (5) Sepsis Current Visit: Yes Status: Acute (6) Hyperkalemia Current Visit: Yes Status: Acute - Plan Physical exam General: Sedated, on mechanical ventilation. Respiratory: Normal air movement. Cardiovascular: No edema, Regular rhythm. Gastrointestinal: Normal bowel sounds, Soft and benign, No tenderness. Musculoskeletal: No swelling, No tenderness Integumentary: No rashes, No cyanosis Neurological: No focal motor deficit. Plan: Continue IV steroid, vitamin and zinc supplementation. On mechanical ventilation. On Nimbex for vent paralysis. Completed baricitinib. Insulin sliding scale for glucose management. Continue Lantus insulin for blood sugar control Noted leukocytosis which could be steroid-induced. Continue IV Rocephin to cover secondary bacterial infection. Blood cultures: No growth to date. Leukocytosis resolved. IV hydralazine as needed for BP spikes. NG tube feeding. Xarelto for DVT prophylaxis.
--- NOTE | 2021-07-04 11:36 | RAD REPORT ---
EXAM DESCRIPTION: RAD - Chest Single View - 07/04/2021 8:39 am CLINICAL HISTORY: covid pneumonia Chest pain. COMPARISON: Abdomen 1 View (KUB) dated 07/03/2021; Chest Single View dated 07/03/2021; Chest Single Vi ew dated 07/02/2021; Chest Single View dated 07/01/2021 FINDINGS: Portable technique limits examination quality. Tip of the ET tube is at the level of the superior aortic arch. Enteric tube descends into the stomac h. Moderate bilateral pulmonary opacities are present, on similar relative to prior study. Right-side d venous catheter is stable. Mild subcutaneous emphysema has developed. Heart size is mildly enlarged . IMPRESSION: Subcutaneous emphysema in the neck and along both chest wall regions ic developed since prior study.
[2021-07-04] MEDS: MIDAZOLAM HCL 2 MG/2 ML INJ IV PRN (12:14)
[2021-07-05] MEDS: HYDROMORPHONE HCL 0.5 MG/0.5 ML INJ IV PRN ×3 (02:00→21:34)
[2021-07-05] MEDS: VITAL AF 1,000 ML BOT RTH SCH (02:30)
[2021-07-05] MEDS: propofoL 1,000 MG/100 ML VIAL IV PRN ×5 (02:45→20:38)
[2021-07-05 05:12] LABS: Absolute Lymphocytes (CBC) 0.3 K/uL (0.7-4.9); Hematocrit 34.8 % (39.6-49.0); Lymphocytes % 4.8 % (15.3-44.8); MPV 10.5 fL (7.6-11.3); RBC Red Blood Cell Count 3.58 M/uL (4.33-5.43)
[2021-07-05 05:20] LABS: Potassium 5.4 mmol/L (3.5-5.1)
[2021-07-05] MEDS: LEVOTHYROXINE SOD 0.1 MG TAB PO SCH (05:35)
[2021-07-05] MEDS: INSULIN -REGULAR HUMAN 50 UNIT/0.5 ML ML SQ SCH ×3 (05:44→17:32)
--- NOTE | 2021-07-05 07:28 | RAD REPORT ---
EXAM DESCRIPTION: RAD - Chest Single View - 07/05/2021 6:32 am CLINICAL HISTORY: covid pneumonia COMPARISON: Chest Single View dated 07/04/2021; Abdomen 1 View (KUB) dated 07/03/2021; Chest Single Vi ew dated 07/03/2021; Chest Single View dated 07/02/2021 FINDINGS: Lines: Weighted feeding tube and central line in similar positioning. The endotracheal tub e tip is 10 millimeters above the aortic arch in similar position. Lungs: Similar widespread bilateral airspace disease. Pleural: No significant pleural effusions or pneumothorax. Cardiac: The heart size is within normal limits. Bones: No acute fractures. Other: IMPRESSION: No significant change in aeration of the lungs with severe bilateral airspace disease. S upport apparatus is stable.
[2021-07-05] MEDS: METHYLPREDNISOLONE 40 MG INJ IV SCH ×2 (07:45→20:33)
[2021-07-05] MEDS: ASPIRIN 81 MG CHEWABLE TABLET PO SCH (07:45)
[2021-07-05] MEDS: RIVAROXABAN 10 MG TABLET PO SCH (07:45)
[2021-07-05] MEDS: FLUCONAZOLE 100 MG TAB PO SCH (07:45)
[2021-07-05] MEDS: VITAMIN D 5,000 UNIT CAP PO SCH (07:45)
[2021-07-05] MEDS: INSULIN GLARGINE 100 UNIT/ML SQ SCH ×2 (07:46→20:34)
[2021-07-05] MEDS: CEFTRIAXONE 1,000 MG in NA CHLORIDE 0.9% 50 ML IVPB SCH (07:47)
[2021-07-05] MEDS: FAMOTIDINE 20 MG/2 ML VIAL IV SCH ×2 (07:49→20:33)
[2021-07-05 08:32] LABS: Blood Morphology Comment NOT SEEN (NOT SEEN); Platelet Estimate ADEQ; Toxic Granulation PRESENT
[2021-07-05] MEDS ORDERED: SOD POLYSTYREN SUL 15 GM/60 ML UCUP PO ONE (08:35)
--- NOTE | 2021-07-05 12:43 | P.PN ---
Subjective Date of Service: 07/05/21 Chief Complaint: Respiratory failure No change not doing well still on maximum oxygen Review of Systems is unable to be obtained Physical Examination - Vital Signs Temperature: 97.8 F Blood Pressure: 112/57 Pulse: 84 Respirations: 28 Pulse Ox (%): 94 - Physical Exam General: Unresponsive Assessment & Plan - Problems (Diagnosis) (1) Pneumonia due to COVID-19 virus Current Visit: Yes Status: Acute Plan: Respiratory failure no change Oxygen therapy subcutaneous emphysema diffuse pneumonia blood sugars elevated repeat arterial blood gases patient is also hyperkalemic increased dose of insulin White count is normal
[2021-07-05] MEDS ORDERED: INSULIN GLARGINE 100 UNIT/ML SQ ONE (13:00)
--- NOTE | 2021-07-05 14:04 | P.PN ---
Subjective Date of Service: 07/05/21 Chief Complaint: Respiratory failure Patient's clinical course appears to fluctuate. FiO2 is up to 100% again. No issues overnight. Physical Examination - Vital Signs Temperature: 97.8 F Blood Pressure: 112/57 Pulse: 84 Respirations: 28 Pulse Ox (%): 94 Assessment And Plan - Current Problems (Diagnosis) (1) Pneumonia due to COVID-19 virus Current Visit: Yes Status: Acute (2) Acute respiratory failure with hypoxia Current Visit: Yes Status: Acute (3) Chronic kidney disease, stage 3 Current Visit: Yes Status: Acute (4) Hypertension Current Visit: Yes Status: Acute (5) Sepsis Current Visit: Yes Status: Acute (6) Hyperkalemia Current Visit: Yes Status: Acute - Plan Physical exam General: Sedated, on mechanical ventilation. Respiratory: Normal air movement. Cardiovascular: No edema, Regular rhythm. Gastrointestinal: Normal bowel sounds, Soft and benign, No tenderness. Musculoskeletal: No swelling, No tenderness Integumentary: No rashes, No cyanosis Neurological: No focal motor deficit. Plan: Continue IV steroid, vitamin and zinc supplementation. On mechanical ventilation. Off Nimbex. Completed baricitinib. Insulin sliding scale for glucose management. Titrate Lantus insulin for blood sugar control Noted leukocytosis which could be steroid-induced. Continue IV Rocephin to cover secondary bacterial infection. Blood cultures: No growth to date. Leukocytosis resolved. Patient will complete 5 days of IV Rocephin tomorrow. IV hydralazine as needed for BP spikes. Kayexalate for hyperkalemia. NG tube feeding. Xarelto for DVT prophylaxis.
[2021-07-06] MEDS: INSULIN -REGULAR HUMAN 50 UNIT/0.5 ML ML SQ SCH ×4 (00:03→18:27)
[2021-07-06] MEDS: propofoL 1,000 MG/100 ML VIAL IV PRN ×6 (01:14→23:25)
[2021-07-06 05:48] LABS: Absolute Lymphocytes (CBC) 0.6 K/uL (0.7-4.9); Hematocrit 34.9 % (39.6-49.0); Lymphocytes % 5.6 % (15.3-44.8); MPV 10.8 fL (7.6-11.3)
[2021-07-06] MEDS: LEVOTHYROXINE SOD 0.1 MG TAB PO SCH (05:56)
[2021-07-06 06:08] LABS: Potassium 4.8 mmol/L (3.5-5.1)
--- NOTE | 2021-07-06 06:11 | P.PN ---
Date of Service: 07/06/21 Subjective: No acute events overnight oxygenation slightly improved Nursing staff report no BM documented for several days ROS: Unable to be obtained Physical exam GEN: intubated HEENT: Normal conjunctiva, sclera anicteric CV: regular rate/rhythm, no edema Pulm: intubated, sedated ABD: Soft, nontender, nondistended Integumentary: no rashes Neuro: sedated Problem List Acute hypoxemic respiratory failure secondary to COVID-19 pneumonia CKD 3 Hypothyroidism NIDDM2 Continue IV steroid, vitamin and zinc supplementation. On mechanical ventilation. Off Nimbex. Completed baricitinib. Insulin sliding scale for glucose management. Titrate Lantus insulin for blood sugar control Noted leukocytosis which could be steroid-induced. Blood cultures: No growth to date. Leukocytosis resolved. Patient will complete 5 days of IV Rocephin IV hydralazine as needed for BP spikes. Kayexalate for hyperkalemia given yesterday NG tube feeding. Xarelto for DVT prophylaxis. KUB to eval stool burden Code: full Dispo: guarded prognosis Time Spent Managing Pts Care (In Minutes): 35
--- NOTE | 2021-07-06 07:26 | RAD REPORT ---
EXAM DESCRIPTION: RAD - Chest Single View - 07/06/2021 6:16 am CLINICAL HISTORY: covid pneumonia COMPARISON: Chest Single View dated 07/05/2021; Chest Single View dated 07/04/2021; Abdomen 1 View ([facility]) dated 07/03/2021; Chest Single View dated 07/03/2021 FINDINGS: Lines: Endotracheal tube at the aortic arch. Feeding tube below diaphragm. Right IJ approa ch central line. Lungs: Severe bilateral airspace disease is unchanged. Pleural: No significant pleural effusions or pneumothorax. Cardiac: Stable size and configuration. Bones: No acute fractures. Other: Subcutaneous emphysema in the right supraclavicular region is unchanged. IMPRESSION: Severe bilateral airspace disease which is unchanged and compatible with multifocal pneu monia. Support apparatus stable.
[2021-07-06 08:29] LABS: Ferritin 4537.1 ng/mL (26-388)
[2021-07-06] MEDS: FAMOTIDINE 20 MG/2 ML VIAL IV SCH ×2 (09:48→21:04)
[2021-07-06] MEDS: METHYLPREDNISOLONE 40 MG INJ IV SCH ×2 (09:48→21:04)
[2021-07-06] MEDS: ASPIRIN 81 MG CHEWABLE TABLET PO SCH (09:48)
[2021-07-06] MEDS: FLUCONAZOLE 100 MG TAB PO SCH (09:48)
[2021-07-06] MEDS: RIVAROXABAN 10 MG TABLET PO SCH (09:48)
[2021-07-06] MEDS: CEFTRIAXONE 1,000 MG in NA CHLORIDE 0.9% 50 ML IVPB SCH (09:48)
[2021-07-06] MEDS: VITAMIN D 5,000 UNIT CAP PO SCH (09:49)
[2021-07-06] MEDS: INSULIN GLARGINE 100 UNIT/ML SQ SCH ×2 (10:13→21:25)
[2021-07-06] MEDS: VITAL AF 1,000 ML BOT RTH SCH (21:26)
[2021-07-07] MEDS: INSULIN -REGULAR HUMAN 50 UNIT/0.5 ML ML SQ SCH ×4 (00:28→19:42)
[2021-07-07] MEDS: propofoL 1,000 MG/100 ML VIAL IV PRN ×5 (04:24→22:45)
[2021-07-07 06:06] LABS: Hematocrit 38.2 % (39.6-49.0); MPV 10.3 fL (7.6-11.3); RBC Red Blood Cell Count 3.92 M/uL (4.33-5.43)
--- NOTE | 2021-07-07 06:13 | P.PN ---
Date of Service: 07/07/21 Subjective: no acute events overnight. O2 weaning down slowly CXR appears slightly worse ROS: Unable to be obtained Physical exam GEN: intubated, sedated HEENT: Normal conjunctiva, sclera anicteric CV: regular rate/rhythm, no edema Pulm: intubated, sedated ABD: Soft, nontender, nondistended Integumentary: no rashes Neuro: sedated Problem List Acute hypoxemic respiratory failure secondary to COVID-19 pneumonia CKD 3 Hypothyroidism NIDDM2 Continue IV steroid On mechanical ventilation. Completed baricitinib. Insulin sliding scale for glucose management. Titrate Lantus insulin for blood sugar control Noted leukocytosis which could be steroid-induced. Blood cultures: No growth to date. was empirically on rocephin IV hydralazine as needed for BP spikes. NG tube feeding. Xarelto for DVT prophylaxis. Code: full Dispo: guarded prognosis, continue ICU level of care Time Spent Managing Pts Care (In Minutes): 35
[2021-07-07 06:22] LABS: Potassium 5.1 mmol/L (3.5-5.1)
[2021-07-07 06:57] LABS: Albumin 1.5 g/dL (3.4-5.0); Bilirubin Total 0.4 mg/dL (0.2-1.0); C-Reactive Protein 99.2 mg/L (<3.00); Ferritin 3557.1 ng/mL (26-388); Protein, Total 6.2 g/dL (6.4-8.2)
[2021-07-07] MEDS: LEVOTHYROXINE SOD 0.1 MG TAB PO SCH (07:08)
[2021-07-07] MEDS: RIVAROXABAN 10 MG TABLET PO SCH (09:00)
[2021-07-07] MEDS ORDERED: INSULIN GLARGINE 100 UNIT/ML SQ SCH (09:00)
[2021-07-07] MEDS: ASPIRIN 81 MG CHEWABLE TABLET PO SCH (09:00)
[2021-07-07] MEDS: CEFTRIAXONE 1,000 MG in NA CHLORIDE 0.9% 50 ML IVPB SCH (09:00)
[2021-07-07] MEDS: METHYLPREDNISOLONE 40 MG INJ IV SCH ×2 (09:00→21:45)
[2021-07-07] MEDS: VITAMIN D 5,000 UNIT CAP PO SCH (09:01)
[2021-07-07] MEDS: FLUCONAZOLE 100 MG TAB PO SCH (09:01)
[2021-07-07] MEDS: FAMOTIDINE 20 MG/2 ML VIAL IV SCH ×2 (09:02→21:46)
[2021-07-07] MEDS ORDERED: NA CHLORIDE 0.9% 250 ML IV ONE (11:12)
--- NOTE | 2021-07-07 12:04 | P.PN ---
Subjective Date of Service: 07/07/21 Chief Complaint: Respiratory failure Patient's oxygen requirements are declining otherwise requiring propofol no change Review of Systems is unable to be obtained Physical Examination - Vital Signs Temperature: 97.4 F Blood Pressure: 105/70 Pulse: 113 Respirations: 29 Pulse Ox (%): 91 - Physical Exam General: Unresponsive Respiratory: Clear to auscultation bilaterally Assessment & Plan - Problems (Diagnosis) (1) Pneumonia due to COVID-19 virus Current Visit: Yes Status: Acute Plan: Respiratory failure oxygenation requirements are declining patient needs continuous infusion of propofol x-ray does look worse tickly on the left side endotracheal tube in satisfactory position changed to cefepime sputum culture White count is mildly elevated
[2021-07-07] MEDS ORDERED: AMIODARONE HCL 150 MG in D5W 100 ML IV STA (12:07)
[2021-07-07] MEDS: AMIODARONE HCL 900 MG in Dextrose 5%-Water 482 ML IV SCH ×2 (12:28→12:33)
[2021-07-07 15:13] LABS: Arterial Blood Carboxyhemoglob 1.2 % (0-1.5); Blood Gas Oxyhemoglobin 90.7 % (94-97)
[2021-07-07] MEDS: CEFEPIME 1 GM in NA CHLORIDE 0.9% 100 ML IV SCH (21:00)
[2021-07-07] MEDS: INSULIN GLARGINE 100 UNIT/ML SQ SCH (21:43)
[2021-07-08] MEDS: INSULIN -REGULAR HUMAN 50 UNIT/0.5 ML ML SQ SCH ×4 (00:09→17:11)
--- NOTE | 2021-07-08 03:54 | EKG ---
Test Date: 2021-07-07 Test Time: 10:57:01 Electronics Mechanic: STEVO MEASUREMENT RESULTS: Intervals: Rate: 155 VA: QRSD: 70 QT: 272 QTc: 437 [place]: P: VA: QRS: 0 T: 163 INTERPRETIVE STATEMENTS: Atrial fibrillation with rapid ventricular response ST & T wave abnormality, consider lateral ischemia or digitalis effect Abnormal ECG Compared to ECG 06/15/2021 10:04:39 ST (T wave) deviation now present Possible ischemia now present Sinus tachycardia no longer present Electronically Signed On 07-08-21 03:54:07 [employer]INTER [employer] by Jimmy Valderrama
[2021-07-08] MEDS: propofoL 1,000 MG/100 ML VIAL IV PRN ×4 (05:01→23:15)
--- NOTE | 2021-07-08 05:57 | P.PN ---
Date of Service: 07/08/21 Subjective: back to sinus rhythm after amiodarone started yesterday no other acute events overnight O2 slowly weaning CXR unchanged tolerating tube feeds, +BM yesterday ROS: Unable to be obtained Physical exam GEN: intubated, sedated HEENT: Normal conjunctiva, sclera anicteric CV: regular rate/rhythm, no lower extremity edema Pulm: intubated, sedated ABD: Soft, nontender, nondistended Integumentary: no rashes Neuro: sedated Problem List Acute hypoxemic respiratory failure secondary to COVID-19 pneumonia CKD 3 Afib with RVR, new onset, resolved Hypothyroidism NIDDM2 continue steroids, completed baricitinib Pulmonology following On mechanical ventilation. wean as tolerated continues with steroid induced hyperglycemia, uptitrating lantus daily was empirically on rocephin, broadened to cefepime on 07/07 NG tube feeding. Xarelto for DVT prophylaxis. with some mild improvement continue home synthroid Code: full Dispo: guarded prognosis, continue ICU level of care Time Spent Managing Pts Care (In Minutes): 35
[2021-07-08 06:06] LABS: Hematocrit 39.9 % (39.6-49.0); MPV 11.8 fL (7.6-11.3); RBC Red Blood Cell Count 4.07 M/uL (4.33-5.43)
[2021-07-08 06:17] LABS: C-Reactive Protein 54.9 mg/L (<3.00); Magnesium 2.7 mg/dL (1.8-2.4); Potassium 5.2 mmol/L (3.5-5.1)
[2021-07-08] MEDS: LEVOTHYROXINE SOD 0.1 MG TAB PO SCH (06:23)
--- NOTE | 2021-07-08 07:44 | RAD REPORT ---
EXAM DESCRIPTION: RAD - Chest Single View - 07/08/2021 6:42 am CLINICAL HISTORY: intubated COMPARISON: Chest Single View dated 07/06/2021; Chest Single View dated 07/05/2021; Chest Single View dated 07/04/2021; Abdomen 1 View ([facility]) dated 07/03/2021 FINDINGS: Lines: Endotracheal tube tip is less than 1 cm above the aortic arch. Enteric tube below t he diaphragm. Right IJ approach central line with tip overlying the SVC. Lungs: Moderate bilateral airspace disease without significant change compared with 07/06/2021. Pleural: No significant pleural effusions or pneumothorax. Cardiac: The heart size is within normal limits. Bones: No acute fractures. Other: Subcutaneous gas in the right supraclavicular region is unchanged. IMPRESSION: Stable support apparatus. Widespread airspace disease is unchanged.
--- NOTE | 2021-07-08 08:44 | P.PN ---
Subjective Date of Service: 07/08/21 Chief Complaint: Respiratory failure Patient is oxygenation is improving still requiring propofol Review of Systems is unable to be obtained Physical Examination - Vital Signs Temperature: 97.2 F Blood Pressure: 104/67 Pulse: 92 Respirations: 28 Pulse Ox (%): 93 - Physical Exam General: Unresponsive Respiratory: Clear to auscultation bilaterally, Diminished Cardiovascular: Regular rate/rhythm, Edema Assessment & Plan - Problems (Diagnosis) (1) Pneumonia due to COVID-19 virus Current Visit: Yes Status: Acute Plan: Respiratory failure oxygenation improving possible improvement in chest x-ray labs reviewed sputum cultures ordered patient developed atrial fibrillation yesterday started on amiodarone now in normal sinus rhythm no change in vent settings control blood sugar level evaluate for LTAC
[2021-07-08] MEDS: METHYLPREDNISOLONE 40 MG INJ IV SCH ×2 (10:28→21:51)
[2021-07-08] MEDS: CEFEPIME 1 GM in NA CHLORIDE 0.9% 100 ML IV SCH ×2 (10:28→21:51)
[2021-07-08] MEDS: FAMOTIDINE 20 MG/2 ML VIAL IV SCH ×2 (10:29→21:51)
[2021-07-08] MEDS: FLUCONAZOLE 100 MG TAB PO SCH (10:29)
[2021-07-08] MEDS: RIVAROXABAN 10 MG TABLET PO SCH (10:30)
[2021-07-08] MEDS: VITAMIN D 5,000 UNIT CAP PO SCH (10:30)
[2021-07-08] MEDS: ASPIRIN 81 MG CHEWABLE TABLET PO SCH (10:30)
[2021-07-08] MEDS: INSULIN GLARGINE 100 UNIT/ML SQ SCH ×2 (10:31→21:49)
[2021-07-08] MEDS: AMIODARONE HCL 900 MG in Dextrose 5%-Water 482 ML IV SCH (11:48)
[2021-07-08] MEDS: VITAL AF 1,000 ML BOT RTH SCH (13:30)
[2021-07-08] MEDS ORDERED: DEXMEDETOMIDINE HCL 1,000 MCG in NA CHLORIDE 0.9% 490 ML IV SCH (17:00)
[2021-07-09] MEDS: INSULIN -REGULAR HUMAN 50 UNIT/0.5 ML ML SQ SCH ×5 (01:12→23:40)
[2021-07-09] MEDS: propofoL 1,000 MG/100 ML VIAL IV PRN ×4 (05:25→22:32)
[2021-07-09] MEDS: LEVOTHYROXINE SOD 0.1 MG TAB PO SCH (05:25)
--- NOTE | 2021-07-09 05:48 | P.PN ---
Date of Service: 07/09/21 Subjective: improving no acute events overnight ROS: Unable to be obtained Physical exam GEN: intubated, sedated HEENT: ETT in place CV: regular rate/rhythm, no lower extremity edema Pulm: intubated, sedated ABD: Soft, nontender, nondistended Integumentary: no rashes Neuro: sedated Problem List Acute hypoxemic respiratory failure secondary to COVID-19 pneumonia CKD 3 Afib with RVR, new onset, resolved Hypothyroidism NIDDM2 continue steroids, completed baricitinib Pulmonology following On mechanical ventilation. wean as tolerated continues with steroid induced hyperglycemia, uptitrating lantus was empirically on rocephin, broadened to cefepime on 07/07 inflammatory markers improving NG tube feeding. Xarelto for DVT prophylaxis. continue home synthroid Code: full Dispo: improving slowly, guarded prognosis, continue ICU level of care consider LTAC Time Spent Managing Pts Care (In Minutes): 35
[2021-07-09 06:15] LABS: Albumin 1.5 g/dL (3.4-5.0); Bilirubin Total 0.5 mg/dL (0.2-1.0); C-Reactive Protein 28.4 mg/L (<3.00); Ferritin 3292.3 ng/mL (26-388); Magnesium 2.6 mg/dL (1.8-2.4); Phosphorus 2.3 mg/dL (2.5-4.9); Potassium 4.9 mmol/L (3.5-5.1); Protein, Total 5.6 g/dL (6.4-8.2)
[2021-07-09] MEDS: FAMOTIDINE 20 MG/2 ML VIAL IV SCH ×2 (08:55→20:29)
[2021-07-09] MEDS: FLUCONAZOLE 100 MG TAB PO SCH (08:55)
[2021-07-09] MEDS: CEFEPIME 1 GM in NA CHLORIDE 0.9% 100 ML IV SCH ×2 (08:55→20:29)
[2021-07-09] MEDS: INSULIN GLARGINE 100 UNIT/ML SQ SCH ×2 (08:55→20:30)
[2021-07-09] MEDS: ASPIRIN 81 MG CHEWABLE TABLET PO SCH (08:55)
[2021-07-09] MEDS: VITAMIN D 5,000 UNIT CAP PO SCH (08:56)
[2021-07-09] MEDS: METHYLPREDNISOLONE 40 MG INJ IV SCH ×2 (08:56→20:30)
[2021-07-09] MEDS: RIVAROXABAN 10 MG TABLET PO SCH (08:56)
[2021-07-09] MEDS: VITAL AF 1,000 ML BOT RTH SCH (11:52)
--- NOTE | 2021-07-09 12:45 | CON ---
History Of Present Illness: Patient has been in the hospital since June 15, 2021, where he came in with the shortness of breath. He has a history of diabetes, hypertension, hypothyroidism. Has be en on mechanical ventilation. I was consulted because of atrial fibrillation. Patient has no previo us cardiac history. When I saw him, his heart rate had gone into 130s, 140s, and had been in and out of his sinus rhythm and atrial fibrillation. His last blood pressure was 112/72, with a pulse of 97 , respiratory rate is 29, his temperature was 97.4, O2 saturation was 92%. Medications: He is on IV amiodarone, Maxipime, Rocephin, Diprivan. Past Medical History: As stated above. Allergies: SULFA. Review of Systems: Negative. Social History: Negative. Family History: Negative. Physical Examination: General: On mechanical ventilation. No acute distress. Vital Signs: Listed earlier. Chest: Seems to show some crackles, both bases. Cardiac: Shows atrial fibrillation. Abdomen: Benign. Extremities: Revealed trace edema. Diagnostic Data: His last white count was 14,000. Last pO2 was 62 with a pCO2 of 44, pH of 7.42. P otassium is 4.9. Glucose of 389, creatinine is 1.2, with a GFR of 59. Impression And Plan: 1.Atrial fibrillation. 2.Diabetes. 3.Mechanical ventilation. 4.Hypothyroidism. 5.Pneumonia. I would continue his present regimen including the amiodarone, the insulin, Thyroid, antibiotics, varsha roid, and Xarelto. We will be getting an echocardiogram on him sometime down the road. He can be sw itched to p.o. amiodarone once he convert. BENEDICT/TONEYL Voice ID: [id number] Report ID: [id number]
--- NOTE | 2021-07-09 13:20 | PN ---
Date of Progress Note: 07/08/2021 Mr. Oliver remained ventilated on mechanical ventilation secondary to pneumonia. He was placed on IV amiodarone yesterday because of new onset atrial fibrillation. Today, he is in sinus rhythm. Hemod ynamically stable with good I's and O's. Saturation have improved. Kidney function is stable. Diab etes remains an issue. Again, I would continue present regimen. Switch to p.o. amiodarone after he goes into sinus rhythm. I will continue to follow on an as-needed basis. An echocardiogram may be r easonable. BENEDICT/MODL Voice ID: [id number] Report ID: [id number]
[2021-07-09] MEDS: AMIODARONE HCL 900 MG in Dextrose 5%-Water 482 ML IV SCH (15:46)
[2021-07-10] MEDS: propofoL 1,000 MG/100 ML VIAL IV PRN ×4 (05:21→23:42)
[2021-07-10] MEDS: LEVOTHYROXINE SOD 0.1 MG TAB PO SCH (05:22)
[2021-07-10 05:55] LABS: Hematocrit 37.1 % (39.6-49.0); Lymphocytes % 8.4 % (15.3-44.8); MPV 11.6 fL (7.6-11.3); RBC Red Blood Cell Count 3.78 M/uL (4.33-5.43)
--- NOTE | 2021-07-10 05:56 | P.PN ---
Date of Service: 07/10/21 Subjective: Improving, oxygen weaning down. Remains in normal sinus rhythm + BMs, tolerating tube feeds ROS: Unable to be obtained Physical exam GEN: intubated, sedated HEENT: ETT in place CV: regular rate/rhythm, no lower extremity edema Pulm: intubated, sedated ABD: Soft, nontender, nondistended Integumentary: no rashes, no lesions Neuro: sedated Problem List Acute hypoxemic respiratory failure secondary to COVID-19 pneumonia CKD 3 Afib with RVR, new onset, resolved Hypothyroidism NIDDM2, with steroid induced hyperglycemia completed baricitinib Decrease steroids from 40 twice daily to 20 twice daily 07/10 Pulmonology following On mechanical ventilation. wean as tolerated continues with steroid induced hyperglycemia, titrating Lantus, showed improvement decrease steroids as well was empirically on rocephin, broadened to cefepime on 07/07, Diflucan per pulmonology inflammatory markers improving NG tube feeding. Xarelto for DVT prophylaxis. continue home synthroid afib with RVR on 07/08, amio drip started and patient converted to NSR a few hours later Cardiology consulted, echo ordered, switched to PO amio on 07/10 Code: full Dispo: improving slowly, guarded prognosis, continue ICU level of care consider LTAC, will discuss with family Time Spent Managing Pts Care (In Minutes): 35
[2021-07-10 06:00] LABS: Albumin 1.3 g/dL (3.4-5.0); Bilirubin Total 0.4 mg/dL (0.2-1.0); C-Reactive Protein 39.3 mg/L (<3.00); Protein, Total 5.2 g/dL (6.4-8.2)
[2021-07-10 06:02] LABS: Potassium 5.4 mmol/L (3.5-5.1)
[2021-07-10] MEDS: INSULIN -REGULAR HUMAN 50 UNIT/0.5 ML ML SQ SCH ×4 (06:12→23:42)
[2021-07-10] MEDS: AMIODARONE HCL 200 MG TAB PO SCH ×2 (06:12→20:14)
[2021-07-10] MEDS: CEFEPIME 1 GM in NA CHLORIDE 0.9% 100 ML IV SCH ×2 (09:00→20:13)
[2021-07-10] MEDS: INSULIN GLARGINE 100 UNIT/ML SQ SCH ×2 (09:19→20:15)
[2021-07-10] MEDS: FLUCONAZOLE 100 MG TAB PO SCH (09:20)
[2021-07-10] MEDS: RIVAROXABAN 10 MG TABLET PO SCH (09:20)
[2021-07-10] MEDS: VITAMIN D 5,000 UNIT CAP PO SCH (09:20)
[2021-07-10] MEDS: FAMOTIDINE 20 MG/2 ML VIAL IV SCH ×2 (09:20→20:15)
[2021-07-10] MEDS: ASPIRIN 81 MG CHEWABLE TABLET PO SCH (09:20)
[2021-07-10] MEDS: METHYLPREDNISOLONE 40 MG INJ IV SCH ×2 (09:21→20:16)
[2021-07-10 09:38] LABS: Blood Morphology Comment NOT SEEN (NOT SEEN); Platelet Estimate ADEQ
[2021-07-10] MEDS ORDERED: SOD POLYSTYREN SUL 15 GM/60 ML UCUP PO ONE (10:04)
--- NOTE | 2021-07-10 11:04 | P.PN ---
Subjective Date of Service: 07/10/21 Chief Complaint: Respiratory failure Patient is improving doing better still requiring propofol Review of Systems is unable to be obtained Physical Examination - Vital Signs Temperature: 98 F Blood Pressure: 133/72 Pulse: 85 Respirations: 29 Pulse Ox (%): 94 - Physical Exam General: Unresponsive Respiratory: Clear to auscultation bilaterally Cardiovascular: No edema Assessment & Plan - Problems (Diagnosis) (1) Pneumonia due to COVID-19 virus Current Visit: Yes Status: Acute Plan: Respiratory failure patient's condition is improving FiO2 declining titrate sat to 90% recheck ABG white count declining chest x-ray is ordered medication labs reviewed patient is in normal sinus rhythm hyperkalemic 1 dose of Kayexalate given
[2021-07-10 15:27] LABS: Arterial Blood Carboxyhemoglob 1.3 % (0-1.5); Blood Gas Oxyhemoglobin 88.1 % (94-97); Blood O2 Saturation 90.2 % (92-98.5)
[2021-07-11] MEDS: INSULIN -REGULAR HUMAN 50 UNIT/0.5 ML ML SQ SCH ×3 (05:48→17:16)
[2021-07-11] MEDS: LEVOTHYROXINE SOD 0.1 MG TAB PO SCH (05:48)
[2021-07-11] MEDS: propofoL 1,000 MG/100 ML VIAL IV PRN ×4 (05:50→21:54)
--- NOTE | 2021-07-11 05:50 | P.PN ---
Date of Service: 07/11/21 Subjective: Weaned down to 65% FiO2 yesterday, this morning patient is becoming more hypotensive, urine output decreasing, now requiring more oxygen supplementation Sputum culture resulted today with MRSA and Pseudomonas Patient appears to be now in septic shock ROS: Unable to be obtained Physical exam GEN: intubated, sedated HEENT: ETT in place CV: regular rate/rhythm, no lower extremity edema Pulm: intubated, sedated ABD: Soft, nontender, nondistended Integumentary: no rashes, no lesions Neuro: sedated Problem List Acute hypoxemic respiratory failure secondary to COVID-19 pneumonia CKD 3 Afib with RVR, new onset, resolved Hypothyroidism NIDDM2, with steroid induced hyperglycemia completed baricitinib. Decrease steroids from 40 twice daily to 20 twice daily 07/10 Pulmonology following On mechanical ventilation. wean as tolerated Was improving over the last few days until this morning was empirically on rocephin, broadened to cefepime on 07/07, Diflucan per p ulmonology Now in septic shock, sepsis bolus ordered, brought cefepime to Merrem and vancomycin Patient may need to be started on Levophed updated continues with steroid induced hyperglycemia, titrating Lantus, improving NG tube feeding. Xarelto for DVT prophylaxis. continue home synthroid afib with RVR on 07/08, amio drip started and patient converted to NSR a few hours later Cardiology consulted, echo ordered, switched to PO amio on 07/10 Code: full Dispo: Guarded prognosis, now in septic shock, continue ICU level of care updated. To continue with full code, as per patient's wishes. Time Spent Managing Pts Care (In Minutes): 35
[2021-07-11 06:51] LABS: Albumin 1.4 g/dL (3.4-5.0); Bilirubin Total 0.6 mg/dL (0.2-1.0); C-Reactive Protein 55.3 mg/L (<3.00); Potassium 4.6 mmol/L (3.5-5.1); Protein, Total 5.2 g/dL (6.4-8.2)
--- NOTE | 2021-07-11 07:49 | RAD REPORT ---
EXAM DESCRIPTION: RAD - Chest Single View - 07/11/2021 6:34 am CLINICAL HISTORY: Respiratory failure COMPARISON: Chest Single View dated 07/08/2021; Chest Single View dated 07/06/2021; Chest Single View dated 07/05/2021; Chest Single View dated 07/04/2021 FINDINGS: Lines: Endotracheal tube at the aortic arch. Right subclavian approach central line. Feedi ng tube. Lungs: Moderate to severe bilateral airspace disease which is unchanged Pleural: No significant pleural effusions or pneumothorax. Cardiac: The heart size is within normal limits. Bones: No acute fractures. Other: IMPRESSION: No significant change compared with 07/08/2021 with moderate to severe bilateral airspac e disease. Support apparatus stable
[2021-07-11] MEDS ORDERED: NA CHLORIDE 0.9% 500 ML IV ONE (08:25)
[2021-07-11] MEDS: INSULIN GLARGINE 100 UNIT/ML SQ SCH ×2 (08:26→21:36)
[2021-07-11] MEDS: METHYLPREDNISOLONE 40 MG INJ IV SCH ×2 (08:26→21:09)
[2021-07-11] MEDS: CEFEPIME 1 GM in NA CHLORIDE 0.9% 100 ML IV SCH (08:27)
[2021-07-11] MEDS: RIVAROXABAN 10 MG TABLET PO SCH (08:27)
[2021-07-11] MEDS: VITAMIN D 5,000 UNIT CAP PO SCH (08:27)
[2021-07-11] MEDS: FLUCONAZOLE 100 MG TAB PO SCH (08:27)
[2021-07-11] MEDS: AMIODARONE HCL 200 MG TAB PO SCH ×2 (08:27→21:08)
[2021-07-11] MEDS: FAMOTIDINE 20 MG/2 ML VIAL IV SCH ×2 (08:27→21:09)
[2021-07-11] MEDS: ASPIRIN 81 MG CHEWABLE TABLET PO SCH (08:28)
[2021-07-11] MEDS ORDERED: NA CHLORIDE 0.9% 1,000 ML IV ONE ×2 (09:57→11:04)
--- NOTE | 2021-07-11 11:13 | P.PN ---
Subjective Date of Service: 07/11/21 Chief Complaint: Respiratory failure Patient's condition has deteriorated became hypotensive more hypoxic Pseudomonas MRSA isolated Review of Systems is unable to be obtained Physical Examination - Vital Signs Temperature: 98.5 F Blood Pressure: 82/47 Pulse: 88 Respirations: 29 Pulse Ox (%): 90 - Physical Exam General: Unresponsive Assessment & Plan - Problems (Diagnosis) (1) Pneumonia due to COVID-19 virus Current Visit: Yes Status: Acute Plan: Respiratory failure condition deteriorated patient has developed septic shock we will expand broad-spectrum coverage to meropenem and vancomycin now requiring maximal oxygen prognosis poor use vasopressors as needed discussed with family regarding DNR White count is mildly elevated chest x-ray reviewed endotracheal tube is in the correct position changed to IV Diflucan
[2021-07-11] MEDS: VANCOMYCIN 1.5 GM in NA CHLORIDE 0.9% 500 ML IVPB SCH (11:17)
[2021-07-11] MEDS: Meropenem 1,000 MG in NA CHLORIDE 0.9% 100 ML IV SCH ×2 (11:18→17:16)
[2021-07-11] MEDS: FLUCONAZOLE 400 MG IVPB 400 MG/200 ML BAG IV SCH (11:53)
[2021-07-11] MEDS: NOREPINEPHRINE 4 MG in D5W 250 ML IV SCH (13:15)
[2021-07-11] MEDS ORDERED: Meropenem 1,000 MG in NA CHLORIDE 0.9% 100 ML IV SCH (17:00)
[2021-07-12] MEDS: Meropenem 1,000 MG in NA CHLORIDE 0.9% 100 ML IV SCH ×3 (00:10→16:05)
[2021-07-12] MEDS: INSULIN -REGULAR HUMAN 50 UNIT/0.5 ML ML SQ SCH ×4 (00:13→18:28)
[2021-07-12] MEDS: VANCOMYCIN 1.5 GM in NA CHLORIDE 0.9% 500 ML IVPB SCH ×2 (04:09→22:49)
[2021-07-12] MEDS: propofoL 1,000 MG/100 ML VIAL IV PRN ×4 (04:10→22:50)
[2021-07-12 04:46] LABS: Absolute Lymphocytes (CBC) 0.9 K/uL (0.7-4.9); Hematocrit 30.2 % (39.6-49.0); Lymphocytes % 9.4 % (15.3-44.8); MPV 11.3 fL (7.6-11.3); RBC Red Blood Cell Count 3.11 M/uL (4.33-5.43)
[2021-07-12] MEDS: VITAL AF 1,000 ML BOT RTH SCH (05:00)
[2021-07-12 05:04] LABS: Potassium 4.7 mmol/L (3.5-5.1)
[2021-07-12 05:05] LABS: Magnesium 2.3 mg/dL (1.8-2.4)
--- NOTE | 2021-07-12 06:02 | P.PN ---
Date of Service: 07/12/21 Subjective: septic shock yesterday secondary to bacterial pneumonia Sputum cultures came back positive for MRSA and Pseudomonas Antibiotics broadened yesterday, sepsis bolus given. Started on Levophed Overnight was able to come off Levophed for few hours, but had to restart it this morning ROS: Unable to be obtained Physical exam GEN: intubated, sedated HEENT: ETT in place CV: regular rate/rhythm, +b/l upper extremity edema, trace bilateral lower extremity edema above ankles Pulm: intubated, sedated ABD: Soft, nontender, nondistended Integumentary: no rashes, no lesions Neuro: sedated Problem List Acute hypoxemic respiratory failure secondary to COVID-19 pneumonia septic shock secondary to bacterial superinfection - MRSA, Pseudomonas CKD 3 Afib with RVR, new onset, resolved Hypothyroidism NIDDM2, with steroid induced hyperglycemia completed baricitinib. Decreased steroids from 40 twice daily to 20 twice daily 07/10 Pulmonology following On mechanical ventilation. wean as tolerated was empirically on rocephin, broadened to cefepime on 07/07, Diflucan per pulmonology Septic shock on 07/11, received sepsis bolus, changed to Merrem and vancomycin Blood pressure responded briefly, remained low, so Levophed was started updated continues with steroid induced hyperglycemia, titrating Lantus NG tube feeding. Xarelto for DVT prophylaxis. continue home synthroid afib with RVR on 07/08, amio drip started and patient converted to NSR a few hours later Cardiology consulted, echo ordered, switched to PO amio on 07/10 Code: full Dispo: Guarded prognosis, continue ICU level of care updated. To continue with full code, as per patient's wishes. Time Spent Managing Pts Care (In Minutes): 35
[2021-07-12] MEDS: LEVOTHYROXINE SOD 0.1 MG TAB PO SCH (06:09)
[2021-07-12] MEDS ORDERED: NA CHLORIDE 0.9% 1,000 ML IV SCH ×2 (07:00→12:30)
[2021-07-12] MEDS: METHYLPREDNISOLONE 40 MG INJ IV SCH (08:10)
[2021-07-12] MEDS: FAMOTIDINE 20 MG/2 ML VIAL IV SCH ×2 (08:10→21:41)
[2021-07-12] MEDS: ASPIRIN 81 MG CHEWABLE TABLET PO SCH (08:10)
[2021-07-12] MEDS: INSULIN GLARGINE 100 UNIT/ML SQ SCH ×2 (08:10→22:17)
[2021-07-12] MEDS: RIVAROXABAN 10 MG TABLET PO SCH (08:11)
[2021-07-12] MEDS: VITAMIN D 5,000 UNIT CAP PO SCH (08:11)
[2021-07-12] MEDS: AMIODARONE HCL 200 MG TAB PO SCH ×2 (08:11→21:41)
--- NOTE | 2021-07-12 08:23 | RAD REPORT ---
EXAM DESCRIPTION: RAD - Chest Single View - 07/12/2021 6:15 am CLINICAL HISTORY: Respiratory failure COMPARISON: Chest Single View dated 07/11/2021; Chest Single View dated 07/08/2021; Chest Single View dated 07/06/2021; Chest Single View dated 07/05/2021 FINDINGS: Lines: Right IJ approach central venous line. Endotracheal tube at the aortic arch and unc hanged positioning. Feeding tube. Lungs: Moderate to severe bilateral airspace opacities are unchanged. Pleural: No significant pleural effusions or pneumothorax. Cardiac: Unchanged Bones: No acute fractures. Other: IMPRESSION: Moderate to severe airspace disease without significant interval change. Support apparat us stable.
[2021-07-12] MEDS: FLUCONAZOLE 400 MG IVPB 400 MG/200 ML BAG IV SCH (10:55)
[2021-07-12 15:06] LABS: C-Reactive Protein 186.32
[2021-07-12] MEDS: predniSONE 20 MG TAB PO SCH (21:41)
[2021-07-12] MEDS: NOREPINEPHRINE 4 MG in D5W 250 ML IV SCH (23:12)
[2021-07-13] MEDS: INSULIN -REGULAR HUMAN 50 UNIT/0.5 ML ML SQ SCH ×4 (00:24→17:37)
[2021-07-13] MEDS: VITAL AF 1,000 ML BOT RTH SCH ×2 (00:25→22:15)
[2021-07-13] MEDS: Meropenem 1,000 MG in NA CHLORIDE 0.9% 100 ML IV SCH ×3 (01:50→16:56)
[2021-07-13] MEDS: propofoL 1,000 MG/100 ML VIAL IV PRN ×4 (05:20→21:09)
[2021-07-13 05:46] LABS: Absolute Lymphocytes (CBC) 1.7 K/uL (0.7-4.9); Hematocrit 29.8 % (39.6-49.0); Lymphocytes % 8.5 % (15.3-44.8); MPV 10.4 fL (7.6-11.3); RBC Red Blood Cell Count 3.05 M/uL (4.33-5.43)
[2021-07-13] MEDS: LEVOTHYROXINE SOD 0.1 MG TAB PO SCH (06:20)
[2021-07-13 06:55] LABS: Blood Morphology Comment NOT SEEN (NOT SEEN); Dohle Bodies PRESENT; Platelet Estimate ADEQ
--- NOTE | 2021-07-13 07:22 | RAD REPORT ---
EXAM DESCRIPTION: RAD - Chest Single View - 07/13/2021 6:16 am CLINICAL HISTORY: Respiratory failure COMPARISON: Portable July 12 TECHNIQUE: AP portable chest image was obtained 07/13/2021 6:16 am . FINDINGS: Endotracheal tube tip is mid aortic arch level 3.5 cm above the que, good position. Fee ding tube tip is in the gastric antrum or possibly duodenal bulb. Right jugular central line remains in good position with the tip mid SVC. Low lung volumes noted compared to prior study. Interstitial and alveolar opacities are not clearly d ifferent. Heart size and central vasculature are normal range and stable. Bilateral costophrenic angl e blunting present. No pneumothorax. IMPRESSION: Bilateral airspace opacification similar to prior day imaging. Lower lung volumes accent uate lung parenchymal opacities. Tubes and lines remain in good position.
[2021-07-13] MEDS: NOREPINEPHRINE 4 MG in D5W 250 ML IV SCH ×2 (07:29→14:58)
--- NOTE | 2021-07-13 08:28 | ECHO ---
HEIGHT: 6 ft 0 in WEIGHT: 197 lb 6 oz DATE OF STUDY: 07/12/[address]: Mitch Montana MD 2-DIMENSIONAL: YES M.MODE: YES DOPPLER: NO COLOR FLOW: NO TDS: YES PORTABLE: YES DEFINITY: NO BUBBLE STUDY: NO DIAGNOSIS: ATRIAL FIBRILLATION, EVALUATE FUNCTION CARDIAC HISTORY: CATHERIZATION: [*] SURGERY: PROSTHETIC VALVE: PACEMAKER: MEASUREMENTS (cm) DIASTOLIC (NORMALS) SYSTOLIC (NORMALS) IVSd (0.6-1.2) LA Diam (1.9-4.0) LVEF % LVIDd (3.5-5.7) LVIDs (2.0-3.5) %FS % LVPWd (0.6-1.2) Ao Diam (2.0-3.7) 2 DIMENSIONAL ASSESSMENT: RIGHT ATRIUM: LEFT ATRIUM: RIGHT VENTRICLE: LEFT VENTRICLE: TRICUSPID VALVE: MITRAL VALVE: PULMONIC VALVE: AORTIC VALVE: PERICARDIAL EFFUSION: AORTIC ROOT: LEFT VENTRICULAR WALL MOTION: DOPPLER/COLOR FLOW: COMMENTS: VERY TECHNICALLY DIFFICULT STUDY. IMPOSSIBLE TO INTERPRET, SUGGEST OCTAVIO IF CLINICALLY INDICATED. TECHNOLOGIST: Shari CABRERA
[2021-07-13] MEDS: FAMOTIDINE 20 MG/2 ML VIAL IV SCH ×2 (09:08→21:37)
[2021-07-13] MEDS: INSULIN GLARGINE 100 UNIT/ML SQ SCH ×2 (09:08→21:40)
[2021-07-13] MEDS: ASPIRIN 81 MG CHEWABLE TABLET PO SCH (09:09)
[2021-07-13] MEDS: AMIODARONE HCL 200 MG TAB PO SCH ×2 (09:09→21:37)
[2021-07-13] MEDS: VITAMIN D 5,000 UNIT CAP PO SCH (09:09)
[2021-07-13] MEDS: predniSONE 20 MG TAB PO SCH ×2 (09:12→21:37)
[2021-07-13] MEDS: RIVAROXABAN 10 MG TABLET PO SCH (09:12)
[2021-07-13 10:41] LABS: Ferritin 2873.6 ng/mL (26-388)
[2021-07-13] MEDS: FLUCONAZOLE 400 MG IVPB 400 MG/200 ML BAG IV SCH (10:41)
[2021-07-13 12:55] LABS: Arterial Blood Carboxyhemoglob 1.2 % (0-1.5); Blood Gas Oxyhemoglobin 89.3 % (94-97); Blood O2 Saturation 91.6 % (92-98.5)
--- NOTE | 2021-07-13 13:16 | P.PN ---
Subjective Date of Service: 07/13/21 Chief Complaint: Respiratory failure Patient became hypotensive and started on Levophed drip last night. FiO2 also titrated up to 70% today. Physical Examination - Vital Signs Temperature: 97.2 F Blood Pressure: 105/49 Pulse: 82 Respirations: 23 Pulse Ox (%): 90 Assessment And Plan - Current Problems (Diagnosis) (1) Pneumonia due to COVID-19 virus Current Visit: Yes Status: Acute (2) Acute respiratory failure with hypoxia Current Visit: Yes Status: Acute (3) Chronic kidney disease, stage 3 Current Visit: Yes Status: Acute (4) Hypertension Current Visit: Yes Status: Acute (5) Sepsis Current Visit: Yes Status: Acute (6) Hyperkalemia Current Visit: Yes Status: Acute - Plan Physical exam General: Sedated, on mechanical ventilation. Respiratory: Normal air movement. Cardiovascular: Regular rhythm. Trace bilateral lower extremity pitting edema. Gastrointestinal: Normal bowel sounds, Soft and benign, No tenderness. Musculoskeletal: No swelling, No tenderness Integumentary: No rashes, No cyanosis Neurological: No focal motor deficit. Problem List Acute hypoxemic respiratory failure secondary to COVID-19 pneumonia septic shock secondary to bacterial superinfection - MRSA, Pseudomonas CKD 3 Afib with RVR, new onset, resolved Hypothyroidism NIDDM2, with steroid induced hyperglycemia completed baricitinib. On oral prednisone Pulmonology following On mechanical ventilation. wean as tolerated was empirically on rocephin, broadened to cefepime on 07/07, Diflucan per pulmonology Septic shock on 07/11, received sepsis bolus, changed antibiotics to Merrem and vancomycin Currently needing Levophed. Leukocytosis trended up today. Steroid induced hyperglycemia, titrating Lantus NG tube feeding. Xarelto for DVT prophylaxis. continue home synthroid afib with RVR on 07/08, amio drip started and patient converted to NSR a few hours later Cardiology consulted, echo ordered, switched to PO amio on 07/10. Stable on amiodarone. Code: full Dispo: Guarded prognosis, continue ICU level of care.
[2021-07-13] MEDS: VANCOMYCIN 1.5 GM in NA CHLORIDE 0.9% 500 ML IVPB SCH (17:17)
[2021-07-13 22:29] LABS: C-Reactive Protein 86.47
[2021-07-13] MEDS: NOREPINEPHRINE 8 MG in D5W 250 ML IV SCH (22:50)
[2021-07-14] MEDS: INSULIN -REGULAR HUMAN 50 UNIT/0.5 ML ML SQ SCH ×3 (00:38→12:44)
[2021-07-14] MEDS: Meropenem 1,000 MG in NA CHLORIDE 0.9% 100 ML IV SCH ×2 (00:39→09:03)
[2021-07-14] MEDS: propofoL 1,000 MG/100 ML VIAL IV PRN ×4 (04:15→20:33)
[2021-07-14] MEDS: LEVOTHYROXINE SOD 0.1 MG TAB PO SCH (06:15)
[2021-07-14 06:29] LABS: Absolute Lymphocytes (CBC) 2.1 K/uL (0.7-4.9); Hematocrit 29.4 % (39.6-49.0); Lymphocytes % 12.2 % (15.3-44.8); MPV 10.6 fL (7.6-11.3); RBC Red Blood Cell Count 3.02 M/uL (4.33-5.43)
--- NOTE | 2021-07-14 06:45 | RAD REPORT ---
EXAM DESCRIPTION: RAD - Chest Single View - 07/14/2021 6:05 am CLINICAL HISTORY: Respiratory failure COMPARISON: July 13 TECHNIQUE: AP portable chest image was obtained 07/14/2021 6:05 am . FINDINGS: ET tube, feeding tube and right jugular central line remain in good position, stable from prior imaging. Lung aviles remain low in volume. Airspace consolidation in the left base has not changed. There is f ractionally improved aeration in the right lung field. No progressive lung parenchymal process seen. Heart and vasculature are normal. No measurable pleural effusion and no pneumothorax. IMPRESSION: Fractionally improved aeration of the right lung field. Consolidation of the left base h as not changed. Tubes and lines are in good position, stable from prior imaging.
[2021-07-14 06:54] LABS: ALT/SGPT 80 U/L (12-78); AST/SGOT 50 U/L (15-37); Albumin 1.2 g/dL (3.4-5.0); Alkaline Phosphatase 69 U/L (45-117); BUN Blood Urea Nitrogen 57 mg/dL (7-18); Bicarbonate 27 mmol/L (21-32); Bilirubin Total 0.4 mg/dL (0.2-1.0); Glucose Level 195 mg/dL (74-106); Potassium 5.4 mmol/L (3.5-5.1); Protein, Total 4.3 g/dL (6.4-8.2); Sodium Level 140 mmol/L (136-145)
[2021-07-14 07:01] LABS: Ferritin > 2000.0 ng/mL (26-388)
[2021-07-14] MEDS: RIVAROXABAN 10 MG TABLET PO SCH (09:05)
[2021-07-14] MEDS: ASPIRIN 81 MG CHEWABLE TABLET PO SCH (09:05)
[2021-07-14] MEDS: INSULIN GLARGINE 100 UNIT/ML SQ SCH ×2 (09:05→21:15)
[2021-07-14] MEDS: AMIODARONE HCL 200 MG TAB PO SCH ×2 (09:06→21:00)
[2021-07-14] MEDS: FAMOTIDINE 20 MG/2 ML VIAL IV SCH ×2 (09:07→21:00)
[2021-07-14] MEDS: VITAMIN D 5,000 UNIT CAP PO SCH (09:08)
[2021-07-14] MEDS: predniSONE 20 MG TAB PO SCH ×2 (09:10→21:00)
--- NOTE | 2021-07-14 12:42 | P.PN ---
Subjective Date of Service: 07/14/21 Chief Complaint: Respiratory failure Blood pressure readings improved. FiO2 down to 60%. Blood cultures positive for MRSA. Physical Examination - Vital Signs Temperature: 97.3 F Blood Pressure: 128/59 Pulse: 86 Respirations: 26 Pulse Ox (%): 88 Assessment And Plan - Current Problems (Diagnosis) (1) Pneumonia due to COVID-19 virus Current Visit: Yes Status: Acute (2) Acute respiratory failure with hypoxia Current Visit: Yes Status: Acute (3) Chronic kidney disease, stage 3 Current Visit: Yes Status: Acute (4) Hypertension Current Visit: Yes Status: Acute (5) Sepsis Current Visit: Yes Status: Acute (6) Hyperkalemia Current Visit: Yes Status: Acute - Plan Physical exam General: Sedated, on mechanical ventilation. Respiratory: Normal air movement. Cardiovascular: Regular rhythm. Trace bilateral lower extremity pitting edema. Gastrointestinal: Normal bowel sounds, Soft and benign, No tenderness. Musculoskeletal: No swelling, No tenderness Integumentary: No rashes, No cyanosis Neurological: No focal motor deficit. Problem List Acute hypoxemic respiratory failure secondary to COVID-19 pneumonia septic shock secondary to bacterial superinfection - MRSA, Pseudomonas MRSA bacteremia CKD 3 Afib with RVR, new onset, resolved Hypothyroidism NIDDM2, with steroid induced hyperglycemia completed baricitinib. On oral prednisone Pulmonology following On mechanical ventilation. wean as tolerated was empirically on rocephin, broadened to cefepime on 07/07, Diflucan per pulmonology Septic shock on 07/11, received sepsis bolus, changed antibiotics to Merrem and vancomycin Currently needing Levophed. Steroid induced hyperglycemia, titrating Lantus. Blood sugar readings are better today. NG tube feeding. Xarelto for DVT prophylaxis. continue home synthroid afib with RVR on 07/08, amio drip started and patient converted to NSR a few hours later Cardiology consulted, echo ordered, switched to PO amio on 07/10. Stable on amiodarone. Will decrease dose to 200 mg twice daily after 7 days. Code: full Dispo: Guarded prognosis, continue ICU level of care.
[2021-07-14] MEDS: FLUCONAZOLE 400 MG IVPB 400 MG/200 ML BAG IV SCH (12:44)
[2021-07-14] MEDS: VANCOMYCIN 1.5 GM in NA CHLORIDE 0.9% 500 ML IVPB SCH (12:45)
[2021-07-14] MEDS: NOREPINEPHRINE 8 MG in D5W 250 ML IV SCH (17:53)
[2021-07-15] MEDS: Meropenem 1,000 MG in NA CHLORIDE 0.9% 100 ML IV SCH ×2 (00:20→08:16)
[2021-07-15] MEDS: propofoL 1,000 MG/100 ML VIAL IV PRN ×4 (03:27→21:07)
[2021-07-15 05:20] LABS: Absolute Lymphocytes (CBC) 2.1 K/uL (0.7-4.9); Hematocrit 27.9 % (39.6-49.0); Lymphocytes % 12.8 % (15.3-44.8); MPV 10.5 fL (7.6-11.3); RBC Red Blood Cell Count 2.86 M/uL (4.33-5.43)
[2021-07-15] MEDS: INSULIN -REGULAR HUMAN 50 UNIT/0.5 ML ML SQ SCH ×4 (05:23→17:50)
[2021-07-15] MEDS: LEVOTHYROXINE SOD 0.1 MG TAB PO SCH (05:41)
[2021-07-15 06:01] LABS: ALT/SGPT 75 U/L (12-78); AST/SGOT 52 U/L (15-37); Albumin 1.2 g/dL (3.4-5.0); Alkaline Phosphatase 59 U/L (45-117); BUN Blood Urea Nitrogen 56 mg/dL (7-18); Bicarbonate 29 mmol/L (21-32); Bilirubin Total 0.4 mg/dL (0.2-1.0); Ferritin 2135.1 ng/mL (26-388); Glucose Level 131 mg/dL (74-106); Potassium 5.1 mmol/L (3.5-5.1); Protein, Total 4.2 g/dL (6.4-8.2); Sodium Level 141 mmol/L (136-145)
--- NOTE | 2021-07-15 07:49 | RAD REPORT ---
EXAM DESCRIPTION: RAD - Chest Single View - 07/15/2021 6:20 am CLINICAL HISTORY: Respiratory failure COMPARISON: July 14July 13 TECHNIQUE: AP portable chest image was obtained 07/15/2021 6:20 am . FINDINGS: ET tube is in place top of the aortic arch approximately 4 cm above the que. This is ad equate positioning. Right jugular central line has not changed. Feeding tube position has not changed . There is further improvement in the right lung field. Left lung field opacification has shown no impr ovement. Left hemidiaphragm remains obscured. Left heart border remains obscured. Heart size does darion ear to be normal. Central vasculature is prominent but unchanged. No pneumothorax or enlarging pleural effusion. IMPRESSION: Low lung volume exam showing continued improvement in the right lung field from prior da y imaging. No improvement in the lower left lung field consolidation. Tubes and lines remain in good positioning.
[2021-07-15] MEDS: FAMOTIDINE 20 MG/2 ML VIAL IV SCH ×2 (08:18→20:18)
[2021-07-15] MEDS: VITAMIN D 5,000 UNIT CAP PO SCH (08:18)
[2021-07-15] MEDS: ASPIRIN 81 MG CHEWABLE TABLET PO SCH (08:18)
[2021-07-15] MEDS: predniSONE 20 MG TAB PO SCH (08:18)
[2021-07-15] MEDS: RIVAROXABAN 10 MG TABLET PO SCH (08:18)
[2021-07-15] MEDS: INSULIN GLARGINE 100 UNIT/ML SQ SCH ×2 (08:18→20:54)
[2021-07-15] MEDS: AMIODARONE HCL 200 MG TAB PO SCH ×2 (08:32→20:30)
--- NOTE | 2021-07-15 10:57 | P.PN ---
Subjective Date of Service: 07/15/21 Chief Complaint: Respiratory failure Blood pressure readings improved still remain on Levophed drip FiO2 down to 60% for the past 24 hours. Minimally responsive without sedation. Physical Examination - Vital Signs Temperature: 97.4 F Blood Pressure: 116/67 Pulse: 97 Respirations: 27 Pulse Ox (%): 91 Assessment And Plan - Current Problems (Diagnosis) (1) Pneumonia due to COVID-19 virus Current Visit: Yes Status: Acute (2) Acute respiratory failure with hypoxia Current Visit: Yes Status: Acute (3) Chronic kidney disease, stage 3 Current Visit: Yes Status: Acute (4) Hypertension Current Visit: Yes Status: Acute (5) Sepsis Current Visit: Yes Status: Acute (6) Hyperkalemia Current Visit: Yes Status: Acute - Plan Physical exam General: Sedated, on mechanical ventilation. Respiratory: Normal air movement. Cardiovascular: Regular rhythm. Trace bilateral lower extremity pitting edema. Gastrointestinal: Normal bowel sounds, Soft and benign, No tenderness. Musculoskeletal: No swelling, No tenderness Integumentary: No rashes, No cyanosis Neurological: Minimally responsive. Problem List Acute hypoxemic respiratory failure secondary to COVID-19 pneumonia septic shock secondary to bacterial superinfection - MRSA, Pseudomonas MRSA bacteremia CKD 3 Afib with RVR, new onset, resolved Hypothyroidism NIDDM2, with steroid induced hyperglycemia completed baricitinib. On oral prednisone Pulmonology following On mechanical ventilation. wean as tolerated was empirically on rocephin, broadened to cefepime on 07/07, Diflucan per pulmonology Septic shock on 07/11, received sepsis bolus, changed antibiotics to Merrem and vancomycin Currently needing Levophed. Continue vancomycin for MRSA bacteremia. Steroid induced hyperglycemia, titrating Lantus. Blood sugar readings are better today. NG tube feeding. Xarelto for DVT prophylaxis. continue home synthroid afib with RVR on 07/08, amio drip started and patient converted to NSR a few hours later Cardiology consulted, echo ordered, switched to PO amio on 07/10. Stable on amiodarone. Continue 400 mg twice daily. Transition to 200 mg twice daily after 7 days. Code: full Dispo: Guarded prognosis, continue ICU level of care.
[2021-07-15 12:01] LABS: C-Reactive Protein 19.02
[2021-07-15] MEDS: FLUCONAZOLE 400 MG IVPB 400 MG/200 ML BAG IV SCH (12:19)
--- NOTE | 2021-07-15 12:26 | P.PN ---
Subjective Date of Service: 07/15/21 Chief Complaint: Respiratory failure No change patient is unresponsive hypotensive on Levophed oxygen requirements down to 65% Review of Systems is unable to be obtained Physical Examination - Vital Signs Temperature: 97.4 F Blood Pressure: 116/67 Pulse: 97 Respirations: 27 Pulse Ox (%): 91 - Physical Exam General: Unresponsive Respiratory: Clear to auscultation bilaterally, Diminished Assessment & Plan - Problems (Diagnosis) (1) Pneumonia due to COVID-19 virus Current Visit: Yes Status: Acute Plan: Respiratory failure patient unresponsive plan to bolus off Levophed and broad- spectrum antibiotics MRSA isolated from the blood prognosis very poor resume IV steroid labs reviewed white count is slightly lower prognosis poor patient is on assist control 65% FiO2 chest x-ray no change
[2021-07-15] MEDS: VANCOMYCIN 1.5 GM in NA CHLORIDE 0.9% 500 ML IVPB SCH (12:29)
[2021-07-15] MEDS ORDERED: NA CHLORIDE 0.9% 500 ML IV ONE (12:56)
[2021-07-15] MEDS: CEFTAZIDIME 2 GM in NA CHLORIDE 0.9% 100 ML IV SCH ×2 (13:25→20:00)
[2021-07-15] MEDS: METHYLPREDNISOLONE 40 MG INJ IV SCH (20:18)
[2021-07-16] MEDS: CEFTAZIDIME 2 GM in NA CHLORIDE 0.9% 100 ML IV SCH ×3 (04:00→20:26)
[2021-07-16] MEDS: INSULIN -REGULAR HUMAN 50 UNIT/0.5 ML ML SQ SCH ×4 (06:00→17:31)
[2021-07-16] MEDS: LEVOTHYROXINE SOD 0.1 MG TAB PO SCH (06:10)
[2021-07-16 06:47] LABS: Absolute Lymphocytes (CBC) 3.1 K/uL (0.7-4.9); Hematocrit 24.7 % (39.6-49.0); MPV 10.9 fL (7.6-11.3); RBC Red Blood Cell Count 2.47 M/uL (4.33-5.43)
[2021-07-16 07:01] LABS: Albumin 1.1 g/dL (3.4-5.0); Bilirubin Total 0.5 mg/dL (0.2-1.0); Protein, Total 3.9 g/dL (6.4-8.2)
[2021-07-16 07:11] LABS: Potassium 5.9 mmol/L (3.5-5.1)
[2021-07-16 07:55] LABS: Blood Morphology Comment NOT SEEN (NOT SEEN); Platelet Estimate ADEQ; White Blood Cell Scan OK (OK)
[2021-07-16] MEDS ORDERED: SOD POLYSTYREN SUL 15 GM/60 ML UCUP PO ONE (08:00)
[2021-07-16] MEDS: INSULIN GLARGINE 100 UNIT/ML SQ SCH ×2 (08:55→21:00)
[2021-07-16] MEDS: VITAMIN D 5,000 UNIT CAP PO SCH (08:56)
[2021-07-16] MEDS: ASPIRIN 81 MG CHEWABLE TABLET PO SCH (08:56)
[2021-07-16] MEDS: RIVAROXABAN 10 MG TABLET PO SCH (08:56)
[2021-07-16] MEDS: METHYLPREDNISOLONE 40 MG INJ IV SCH ×2 (08:57→20:26)
[2021-07-16] MEDS: AMIODARONE HCL 200 MG TAB PO SCH (08:57)
[2021-07-16] MEDS: FAMOTIDINE 20 MG/2 ML VIAL IV SCH ×2 (08:57→20:26)
[2021-07-16] MEDS: NOREPINEPHRINE 8 MG in D5W 250 ML IV SCH (10:27)
[2021-07-16 11:43] VITALS: O2SAT 90
--- NOTE | 2021-07-16 13:24 | P.PN ---
Subjective Date of Service: 07/16/21 Chief Complaint: Respiratory failure/severe sepsis Patient not doing well unresponsive hypotensive Review of Systems is unable to be obtained Physical Examination - Vital Signs Temperature: 99.5 F Blood Pressure: 83/51 Pulse: 86 Respirations: 26 Pulse Ox (%): 86 - Physical Exam General: Unresponsive Respiratory: Clear to auscultation bilaterally, Diminished Assessment & Plan - Problems (Diagnosis) (1) Pneumonia due to COVID-19 virus Current Visit: Yes Status: Acute Plan: Respiratory failure shock MRSA infection renal function is worse patient is hyperkalemic chest x-ray no change patient is on Levophed maximum therapy prognosis poor unlikely to survive DC amiodarone for now chest x-ray endotracheal tube satisfactory
[2021-07-16] MEDS: FLUCONAZOLE 400 MG IVPB 400 MG/200 ML BAG IV SCH (13:36)
--- NOTE | 2021-07-16 13:45 | P.PN ---
Subjective Date of Service: 07/16/21 Chief Complaint: Respiratory failure/severe sepsis Patient clinical condition continues to decline. Minimally responsive. Back on Levophed drip. Physical Examination - Vital Signs Temperature: 99.5 F Blood Pressure: 83/51 Pulse: 86 Respirations: 26 Pulse Ox (%): 86 Assessment And Plan - Current Problems (Diagnosis) (1) Pneumonia due to COVID-19 virus Current Visit: Yes Status: Acute (2) Acute respiratory failure with hypoxia Current Visit: Yes Status: Acute (3) Chronic kidney disease, stage 3 Current Visit: Yes Status: Acute (4) Hypertension Current Visit: Yes Status: Acute (5) Sepsis Current Visit: Yes Status: Acute (6) Hyperkalemia Current Visit: Yes Status: Acute - Plan Physical exam General: Sedated, on mechanical ventilation. Respiratory: Normal air movement. Cardiovascular: Regular rhythm. Trace bilateral lower extremity pitting edema. Gastrointestinal: Normal bowel sounds, Soft and benign, No tenderness. Musculoskeletal: No swelling, No tenderness Integumentary: No rashes, No cyanosis Neurological: Minimally responsive. Problem List Acute hypoxemic respiratory failure secondary to COVID-19 pneumonia septic shock secondary to bacterial superinfection - MRSA, Pseudomonas MRSA bacteremia CKD 3 Afib with RVR, new onset, resolved Hypothyroidism NIDDM2, with steroid induced hyperglycemia completed baricitinib. On oral prednisone Pulmonology following On mechanical ventilation. wean as tolerated was empirically on rocephin, broadened to cefepime on 07/07, Diflucan per pulmonology Septic shock on 07/11, received sepsis bolus, changed antibiotics to Merrem and vancomycin Currently needing Levophed. Continue vancomycin for MRSA bacteremia. Steroid induced hyperglycemia, titrating Lantus. Blood sugar readings are better today. NG tube feeding. Xarelto for DVT prophylaxis. continue home synthroid afib with RVR on 07/08, amio drip started and patient converted to NSR a few hours later Cardiology consulted, echo ordered, switched to PO amio on 07/10. Stable on amiodarone. Continue 400 mg twice daily. Transition to 200 mg twice daily after 7 days. Code: full Dispo: Poor prognosis, continue ICU level of care.
[2021-07-16 14:24] LABS: Magnesium 2.6 mg/dL (1.8-2.4); Phosphorus 5.9 mg/dL (2.5-4.9)
[2021-07-16] MEDS: propofoL 1,000 MG/100 ML VIAL IV PRN (16:04)
[2021-07-16] MEDS: VANCOMYCIN 1.5 GM in NA CHLORIDE 0.9% 500 ML IVPB SCH (16:57)
[2021-07-16] MEDS ORDERED: GLUCAGON 1 MG/VIAL IM PRN (17:33)
[2021-07-16] MEDS: D50W 25 GM/50 ML SYRINGE IV PRN ×2 (17:41→22:20)
[2021-07-16] MEDS: NOREPINEPHRINE 16 MG in Dextrose 5%-Water 500 ML IV SCH (19:43)
[2021-07-17] MEDS: INSULIN -REGULAR HUMAN 50 UNIT/0.5 ML ML SQ SCH
[2021-07-17] MEDS ORDERED: D5W 250 ML IV ONE (03:11)
[2021-07-17] MEDS ORDERED: Phenylephrine HCl 10 MG/ML 1 ML VIAL ONE (03:11)
[2021-07-17] MEDS: NOREPINEPHRINE 16 MG in Dextrose 5%-Water 500 ML IV SCH (03:19)
[2021-07-17] MEDS: CEFTAZIDIME 2 GM in NA CHLORIDE 0.9% 100 ML IV SCH (04:07)
[2021-07-17 05:10] LABS: Absolute Lymphocytes (CBC) 5.3 K/uL (0.7-4.9); Hematocrit 23.3 % (39.6-49.0); Lymphocytes % 24.1 % (15.3-44.8); MPV 10.5 fL (7.6-11.3); RBC Red Blood Cell Count 2.35 M/uL (4.33-5.43)
[2021-07-17 05:24] VITALS: BMI 28.8
[2021-07-17 05:44] LABS: Anisocytosis 2+; Blood Morphology Comment NOTED (NOT SEEN); Macrocytosis 1+; Platelet Estimate ADEQ; Platelets, Giant FEW; Polychromasia SLIGHT; Toxic Granulation 2+
[2021-07-17 05:45] LABS: Ovalocytes 1+; Teardrop Cell 1+
[2021-07-17 05:55] LABS: Protein, Total 3.8 g/dL (6.4-8.2)
[2021-07-17 06:10] LABS: Potassium 7.7 mmol/L (3.5-5.1)
[2021-07-17 06:49] VITALS: BP 62/47; TEMP 96.9
[2021-07-17] MEDS ORDERED: Caclcium Chloride 10% INJ SYR IV ONE (07:59)
[2021-07-17] MEDS ORDERED: EPINEPHrine 1 MG/10 ML SYR IV ONE (07:59)
[2021-07-17] MEDS ORDERED: MAGNESIUM SULF 1GM/2ML VIAL IV ONE (07:59)
[2021-07-17] MEDS ORDERED: NA CHLORIDE 0.9% 1,000 ML IV ONE (07:59)
--- NOTE | 2021-07-17 10:26 | P.DS ---
Admission Date: 06/15/21 Discharge Date: 07/17/21 Disposition: Reason for Admission: Respiratory failure/severe sepsis - Problems (1) Pneumonia due to COVID-19 virus Status: Acute (2) Acute respiratory failure with hypoxia Status: Acute (3) Chronic kidney disease, stage 3 Status: Acute (4) Hypertension Status: Acute (5) Sepsis Status: Acute (6) Hyperkalemia Status: Acute Brief History of Present Illness: 75-year-old gentleman with a history of diabetes and hypertension recently hospitalized 4 days ago for pneumonia due to Covid and discharged the following day return to the ED with progressive worsening of shortness of breath and cough. Patient noted to be hypoxic on room air and was requiring 100% nonrebreather to maintain oxygen saturation above 90%. He denies any chest yordy n. He has a nonproductive cough. Patient admitted for further management of Covid pneumonia with hypoxia. Hospital Course: Problem List Acute hypoxemic respiratory failure secondary to COVID-19 pneumonia septic shock secondary to bacterial superinfection - MRSA, Pseudomonas MRSA bacteremia CKD 3 Afib with RVR, new onset, resolved Hypothyroidism NIDDM2, with steroid induced hyperglycemia Patient admitted to the medical floor and COVID treatment protocol with IV steroid, vitamins and zinc supplementation started. His oxygen requirement increased and ended up on oxygen by HFNC and BiPAP. He received several days of IV steroids and later transition to oral prednisone He completed baricitinib therapy Pulmonology- Dr. Santoyo assisted with management. Patient eventually intubated and transferred to the ICU on mechanical ventilation with his condition continued to decline. He developed septic shock despite being on antibiotics. Patient was treated with aggressive antibiotic therapy, and needed vasopressors. He grew MRSA in the blood and received several days of vancomycin He did not respond to treatment and eventually on 07/17/2021 at 0619 hours. Vital Signs/Physical Exam: Temp Pulse Resp BP Pulse Ox 96.9 F 70 18 62/47 L 98 07/17/21 04:00 07/17/21 05:45 07/17/21 06:00 07/17/21 06:00 07/17/21 05:45 Laboratory Data at Discharge: WBC 28.10 K/uL (4.3-10.9) H* D 07/17/21 04:30 Hgb 7.5 g/dL (13.6-17.9) L 07/17/21 04:30 Hct 23.3 % (39.6-49.0) L 07/17/21 04:30 Plt Count 139 K/uL (152-406) L 07/17/21 04:30 PT 12.2 SECONDS (9.5-12.5) 06/16/21 03:04 INR 1.06 06/16/21 03:04 Sodium 134 mmol/L (136-145) L 07/17/21 04:30 Potassium 7.7 mmol/L (3.5-5.1) H* 07/17/21 04:30 BUN 111 mg/dL (7-18) H D 07/17/21 04:30 Creatinine 2.56 mg/dL (0.55-1.3) H D 07/17/21 04:30 Glucose 123 mg/dL (74-106) H 07/17/21 04:30 Phosphorus 5.9 mg/dL (2.5-4.9) H 07/16/21 13:41 Magnesium 2.6 mg/dL (1.8-2.4) H 07/16/21 13:41 Total Bilirubin 1.0 mg/dL (0.2-1.0) 07/17/21 04:30 AST 2322 U/L (15-37) H* D 07/17/21 04:30 ALT 1881 U/L (12-78) H* D 07/17/21 04:30 Alkaline Phosphatase 179 U/L (45-117) H D 07/17/21 04:30 Triglycerides 130 mg/dL (<150) 06/16/21 03:04 Cholesterol 164 mg/dL (<200) 06/16/21 03:04 HDL Cholesterol 28 mg/dL (40-60) L 06/16/21 03:04 Cholesterol/HDL Ratio 5.86 06/16/21 03:04 Home Medications: Aspirin 81 mg PO DAILY 06/11/21 Metformin HCl [Glucophage*] 500 mg PO DAILY 06/11/21 Pantoprazole Sodium [Protonix] 40 mg PO DAILY 06/11/21 Valsartan/Hydrochlorothiazide [Valsartan-Hctz 160-25 mg Tab] 1 tab PO DAILY 06/11/21 Levothyroxine Sodium [Synthroid] 1 tab PO DAILY 06/17/21 Pioglitazone HCl [Actos] 1 tab PO DAILY 06/17/21 Followup: NONE,NONE [Primary Care Provider] -
[2021-07-18] MEDS ORDERED: VANCOMYCIN 1.5 GM in NA CHLORIDE 0.9% 500 ML IVPB SCH (18:00)
== END 2021-07-17 08:00 | disposition expired | DRG 207 ==
LOC: ER 09:36 → ERHOLD 11:59 → 4TH 19:36 → 3RD-ICU 07-01 09:00
PROVIDERS: ADMIT Internal Medicine; ATTEND Internal Medicine
PROC: 5A0955A Assistance with Respiratory Ventilation, Greater than 96 Consecutive Hours, High Flow/Velocity Cannula (ICD-10-PCS; 2021-06-15)
PROC: 5A09457 Assistance with Respiratory Ventilation, 24-96 Consecutive Hours, Continuous Positive Airway Pressure (ICD-10-PCS; 2021-06-28)
PROC: 0BH17EZ Insertion of Endotracheal Airway into Trachea, Via Natural or Artificial Opening (ICD-10-PCS; principal; 2021-07-01)
PROC: 5A1955Z Respiratory Ventilation, Greater than 96 Consecutive Hours (ICD-10-PCS; 2021-07-01)
DX: U07.1 COVID-19 (principal); J12.82 Pneumonia due to coronavirus disease 2019; A41.02 Sepsis due to Methicillin resistant Staphylococcus aureus; A41.52 Sepsis due to Pseudomonas; R65.21 Severe sepsis with septic shock; J96.01 Acute respiratory failure with hypoxia; J15.9 Unspecified bacterial pneumonia; I47.1 Supraventricular tachycardia; E87.5 Hyperkalemia; I12.9 Hypertensive chronic kidney disease with stage 1 through stage 4 chronic kidney disease, or unspecified chronic kidney disease; E11.22 Type 2 diabetes mellitus with diabetic chronic kidney disease; N18.30 Chronic kidney disease, stage 3 unspecified; E09.65 Drug or chemical induced diabetes mellitus with hyperglycemia; T38.0X5A Adverse effect of glucocorticoids and synthetic analogues, initial encounter; Y92.230 Patient room in hospital as the place of occurrence of the external cause; I48.91 Unspecified atrial fibrillation; E03.9 Hypothyroidism, unspecified; J98.2 Interstitial emphysema; R06.03 Acute respiratory distress
CPT/HCPCS: 36415; 71045; 71275; 74018; 80048; 80053; 80061; 80076; 80202; 81003; 81015; 82728; 82805; 82947; 83735; 83880; 84100; 84145; 84443; 84484; 85025; 85027; 85379; 85610; 86140; 87040; 87070; 87077; 87186; 87205; 93005; 93307; 94002; 94003; 94660; 94760; 99285; J0171; J0282; J0330; J0692; J0713; J1170; J1450; J1650; J1940; J2185; J2250; J2370; J2704; J2920; J2930; J3010; J3370; J3475; J7030; J7040; J7050; J7060; J7512; Q9967